=== PATIENT | female | born 1965 | race Caucasian/White ===

== ENCOUNTER 2023-04-10 23:27 | Inpatient (IN) | payer OTHER ==
[2023-04-11] MEDS ORDERED: ASPIRIN 81 MG PO STA (00:27)
[2023-04-11] MEDS ORDERED: NITROGLYCERIN-D5W PMX 50 MG in DEXTROSE/WATER 1 250ML.BAG IV ONE (00:28)
[2023-04-11 00:31] LABS: Basophils % (A) 0 %; Eosinophils # (A) 0.1 k/uL (0-0.7); Eosinophils % (A) 1 %; HCT 44.5 % (34.0-46.0); HGB 13.9 gm/dL (11.4-16.0); Hypochromasia Slight; Lymphocytes # (A) 2.6 k/uL (1.0-4.8); Lymphocytes % (A) 34 %; MCH 31.9 pg (25.0-35.0); MCHC 31.1 g/dL (31.0-37.0); MCV 102.5 fL (80.0-100.0); Macrocytosis Slight; Mean Platelet Volume 7.7; Monocytes # (A) 0.3 k/uL (0-1.0); Monocytes % (A) 4 %; Neutrophils # (A) 4.5 k/uL (1.3-7.7); Neutrophils % (A) 58 %; Platelet Count 343 k/uL (150-450); RBC 4.35 m/uL (3.80-5.40); RDW 13.5 % (11.5-15.5); WBC 7.7 k/uL (3.8-10.6)
[2023-04-11] MEDS ORDERED: MORPHINE SULFATE 2 MG/ML SYRINGE IVP PRN (00:44)
[2023-04-11 00:45] LABS: ALT 22 U/L (4-34); AST 39 U/L (14-36); African American GFR (CKD) >90 (>60 ml/min/1.73 sqM); Albumin 4.5 g/dL (3.5-5.0); Alkaline Phosphatase 68 U/L (38-126); Anion Gap 13 mmol/L; Blood Urea Nitrogen 14 mg/dL (7-17); Calcium 9.6 mg/dL (8.4-10.2); Carbon Dioxide 19 mmol/L (22-30); Chloride 103 mmol/L (98-107); Glucose 140 mg/dL (74-99); Magnesium 1.8 mg/dL (1.6-2.3); Non-African American GFR(CKD) >90 (>60 ml/min/1.73 sqM); Sodium 135 mmol/L (137-145); Total Bilirubin 0.9 mg/dL (0.2-1.3); Total Protein 8.1 g/dL (6.3-8.2)
[2023-04-11 00:48] LABS: INR 1.1 (<1.2); Partial Thromboplastin Time 21.8 sec (22.0-30.0); Prothrombin Time 11.5 sec (9.0-12.0)
[2023-04-11 01:27] LABS: Potassium 5.1 mmol/L (3.5-5.1)
--- NOTE | 2023-04-11 01:40 | XR ---
EXAM: XR Chest, 1 View CLINICAL HISTORY: ITS.REASON XR Reason: dyspnea TECHNIQUE: Frontal view of the chest. COMPARISON: No relevant prior studies available. IMPRESSION: Cardiomegaly. Slightly prominent interstitial markings.
--- NOTE | 2023-04-11 02:52 | ED ---
General Adult HPI - General Chief complaint: Recheck/Abnormal Lab/Rx Stated complaint: Hypertension Time Seen by Provider: 04/10/23 23:34 Source: patient Mode of arrival: EMS - History of Present Illness Initial comments: This patient is a 58-year-old woman who presents to have evaluation for anxiety and high blood pressure. The patient states that her blood pressure has been high for quite some time but she has not had medication for it. She states that today she also was feeling very anxious and she started becoming short of breath. Earlier in the day the patient was having some upper chest tightness and that prompted her family member to take her to the emergency department. When I interview the patient, she states there is currently no chest pain it has resolved. She states she is feeling very short of breath and very anxious. She states she feels very sweaty. No fever or chills. No cough. No change in urination or bowel movements. -: hour(s) Location: chest Radiation: non-radiation Quality: dull Consistency: now resolved Improves with: none Worsens with: none Associated Symptoms: shortness of breath Treatments Prior to Arrival: none - Related Data Previous Rx's Medication Instructions Recorded Aspirin 81 mg PO DAILY tab 04/17/23 Atorvastatin [Lipitor] 80 mg PO DAILY 30 Days #30 tab 04/17/23 Isosorbide Mononitrate ER [Imdur] 30 mg PO DAILY 30 Days #30 tab 04/17/23 Prasugrel [Effient] 10 mg PO DAILY 30 Days #30 tab 04/17/23 Allergies Allergy/AdvReac Type Severity Reaction Status Date / Time Sulfa (Sulfonamide Allergy Unknown Verified 04/11/23 07:04 Antibiotics) Review of Systems ROS Statement: Those systems with pertinent positive or pertinent negative responses have been documented in the HPI. ROS Other: All systems not noted in ROS Statement are negative. Constitutional: Denies: fever, chills, weakness Respiratory: Reports: as per HPI, dyspnea. Denies: cough, wheezes, hemoptysis Cardiovascular: Reports: as per HPI, chest pain, orthopnea. Denies: palpitations, edema, syncope Gastrointestinal: Denies: abdominal pain, nausea, vomiting, diarrhea Genitourinary: Denies: dysuria, hematuria Musculoskeletal: Denies: back pain Skin: Denies: rash Neurological: Denies: headache, weakness Psychiatric: Reports: anxiety Past Medical History Past Medical History: No Reported History History of Any Multi-Drug Resistant Organisms: None Reported Past Surgical History: No Surgical Hx Reported Past Psychological History: Anxiety, Depression Smoking Status: Current some day smoker Past Alcohol Use History: Abuse, Daily, Heavy Past Drug Use History: None Reported General Exam General appearance: alert, anxious, in distress Head exam: Present: atraumatic, normocephalic Eye exam: Present: normal appearance. Absent: scleral icterus, conjunctival injection ENT exam: Present: normal oropharynx Neck exam: Present: normal inspection Respiratory exam: Present: respiratory distress, wheezes, rales. Absent: rhonchi, stridor, accessory muscle use, decreased breath sounds, prolonged expiratory Cardiovascular Exam: Present: normal rhythm, tachycardia, systolic murmur. Absent: diastolic murmur, rubs, gallop GI/Abdominal exam: Present: soft. Absent: distended, tenderness, guarding, rebound, rigid, mass Extremities exam: Present: normal inspection, normal capillary refill. Absent: pedal edema, calf tenderness Back exam: Present: normal inspection. Absent: CVA tenderness (R), CVA tenderness (L) Neurological exam: Present: alert Skin exam: Present: warm, intact, diaphoretic, pallor. Absent: rash Course Vital Signs 04/11/23 04/11/23 04/11/23 00:00 00:03 00:35 Temperature 97.9 F Pulse Rate 133 H 135 H Respiratory 32 H 19 Rate Blood Pressure 163/129 146/128 O2 Sat by Pulse 95 100 Oximetry 04/11/23 04/11/23 04/11/23 00:40 00:45 00:50 Temperature Pulse Rate 140 H 147 H 135 H Respiratory Rate Blood Pressure 144/104 151/110 157/101 O2 Sat by Pulse 100 100 100 Oximetry 04/11/23 04/11/23 04/11/23 00:55 01:00 01:05 Temperature Pulse Rate 137 H 133 H 125 H Respiratory Rate Blood Pressure 146/109 151/106 134/105 O2 Sat by Pulse 100 100 100 Oximetry 04/11/23 04/11/23 04/11/23 01:15 01:30 01:45 Temperature Pulse Rate 135 H 129 H 131 H Respiratory Rate Blood Pressure 143/105 142/103 157/104 O2 Sat by Pulse 100 99 100 Oximetry 04/11/23 04/11/2304/11/23 01:56 02:00 02:15 Temperature Pulse Rate 126 H 120 H Respiratory 24 Rate Blood Pressure 148/111 143/113 O2 Sat by Pulse 95 97 Oximetry 04/11/23 04/11/23 04/11/23 02:30 02:45 03:00 Temperature Pulse Rate 120 H 103 H 103 H Respiratory 24 22 Rate Blood Pressure 125/100 118/90 119/86 O2 Sat by Pulse 98 99 98 Oximetry 04/11/23 04/11/23 04/11/23 03:15 03:30 04:00 Temperature Pulse Rate 107 H Respiratory 22 Rate Blood Pressure 129/94 119/86 131/89 O2 Sat by Pulse 98 98 Oximetry 04/11/23 04/11/23 04/11/23 04:30 04:45 05:00 Temperature Pulse Rate 104 H 90 96 Respiratory Rate Blood Pressure 121/88 122/92 111/84 O2 Sat by Pulse 98 98 99 Oximetry 04/11/23 04/11/23 04/11/23 05:30 06:00 06:30 Temperature Pulse Rate 98 85 82 Respiratory Rate Blood Pressure 116/94 115/89 113/90 O2 Sat by Pulse 100 100 100 Oximetry 04/11/23 06:55 Temperature 97.9 F Pulse Rate Respiratory Rate Blood Pressure O2 Sat by Pulse Oximetry EKG Findings - EKG Comments: EKG Findings:: Possible old anterior and inferior infarct - EKG Results: EKG: interpreted by ERMD, sinus rhythm, normal axis EKG shows: tachycardia (Rate 131 bpm) - Blocks, [place], Hypertrophy, ST Abn: QRS axis and voltage: low voltage (<0.5 MV total QRS and <1.0 MV in each precord ial lead) Medical Decision Making - Medical Decision Making Was pt. sent in by a medical professional or institution (, PA, MATERIALS PLANNING ANALYST, urgent care, hospital, or prison...) When possible be specific @ -[No] Did you speak to anyone other than the patient for history (EMS, parent, family, police, friend...)? What history was obtained from this source @ -[No] Did you review nursing and triage notes (agree or disagree)? Why? @ -[I reviewed and agree with nursing and triage notes] Were old charts reviewed (outside hosp., previous admission, EMS record, old EKG, old radiological studies, urgent care reports/EKG's, prison records)? Report findings @ -[No old charts were reviewed] Differential Diagnosis (chest pain, altered mental status, abdominal pain women, abdominal pain men, vaginal bleeding, weakness, fever, dyspnea, syncope, headache, dizziness, GI bleed, back pain, seizure, CVA, palpatations, mental health, musculoskeletal)? @ -[Differential Dyspnea: Coronary syndrome, arrhythmia, tamponade, asthma, COPD, pulmonary embolism, pneumonia, pneumothorax, pulmonary effusion, anaphylaxis, diabetic ketoacidosis, flailed chest, pulmonary contusion, diaphragmatic rupture, anemia, neuromuscular, this is not meant to be an all-inclusive list. EKG interpreted by me (3pts min.). @ -[As above] X-rays interpreted by me (1pt min.). @ -[As above CT interpreted by me (1pt min.). @ -[None done] U/S interpreted by me (1pt. min.). @ -[None done] What testing was considered but not performed or refused? (CT, X-rays, U/S, labs)? Why? @ -[None] What meds were considered but not given or refused? Why? @ -[None] Did you discuss the management of the patient with other professionals (professionals i.e. , PA, MATERIALS PLANNING ANALYST, lab, RT, psych nurse, social science teacher, crm marketing manager, teacher, records officer, assistant case manager)? Give summary @ -[Case is discussed with the admitting physician and patient be admitted to have cardiology consultation Was smoking cessation discussed for >3mins.? @ -[No] Was critical care preformed (if so, how long)? @ -[Yes 35 minutes Were there social determinants of health that impacted care today? How? (Homelessness, low income, unemployed, alcoholism, drug addiction, transportation, low edu. Level, literacy, decrease access to med. care, nursing home, rehab)? @ -[No] Was there de-escalation of care discussed even if they declined (Discuss DNR or withdrawal of care, Hospice)? DNR status @ -[No] What co-morbidities impacted this encounter? (DM, HTN, Smoking, COPD, CAD, Cancer, CVA, ARF, Chemo, Hep., AIDS, mental health diagnosis, sleep apnea, morbid obesity)? @ -[None] Was patient admitted / discharged? Hospital course, mention meds given and route, prescriptions, significant lab abnormalities, going to OR and other pertinent info. @ -[Admitted as above Undiagnosed new problem with uncertain prognosis? @ -[No] Drug Therapy requiring intensive monitoring for toxicity (Heparin, Nitro, Insulin, Cardizem)? @ -[Nitroglycerin Were any procedures done? @ -[No] Diagnosis/symptom? @ Acute hypertensive emergency Acute congestive heart failure Acute, or Chronic, or Acute on Chronic? @ -[Acute hypertensive emergency Acute congestive heart failure Uncomplicated (without systemic symptoms) or Complicated (systemic symptoms)? @ -[Complicated with dyspnea Side effects of treatment? @ -[No] Exacerbation, Progression, or Severe Exacerbation? @ -[No] Poses a threat to life or bodily function? How? (Chest pain, [place], [place], pneumonia, PE, COPD, DKA, ARF, appy, cholecystitis, CVA, Diverticulitis, Homicidal, Suicidal, threat to staff... and all critical care pts) @ -[Yes untreated hypertensive emergency can progress respiratory failure - Lab Data Result diagrams: 04/15/23 07:39 04/15/23 07:39 Lab Results 04/10/23 04/10/23 04/10/23 Range/Units 23:34 23:34 23:34 WBC 7.7 (3.8-10.6) k/uL RBC 4.35 (3.80-5.40) m/uL Hgb 13.9 (11.4-16.0) gm/dL Hct 44.5 (34.0-46.0) % MCV 102.5 H (80.0-100.0) fL MCH 31.9 (25.0-35.0) pg MCHC 31.1 (31.0-37.0) g/dL RDW 13.5 (11.5-15.5) % Plt Count 343 (150-450) k/uL MPV 7.7 Neutrophils % 58 % Lymphocytes % 34 % Monocytes % 4 % Eosinophils % 1 % Basophils % 0 % Neutrophils # 4.5 (1.3-7.7) k/uL Lymphocytes # 2.6 (1.0-4.8) k/uL Monocytes # 0.3 (0-1.0) k/uL Eosinophils # 0.1 (0-0.7) k/uL Basophils # 0.0 (0-0.2) k/uL Hypochromasia Slight Macrocytosis Slight PT 11.5 (9.0-12.0) sec INR 1.1 (<1.2) APTT 21.8 L (22.0-30.0) sec D-Dimer 0.97 H (<0.60) mg/L FEU Sodium 135 L (137-145) mmol/L Potassium 5.1 (3.5-5.1) mmol/L Chloride 103 (98-107) mmol/L Carbon Dioxide 19 L (22-30) mmol/L Anion Gap 13 mmol/L BUN 14 (7-17) mg/dL Creatinine 0.70 (0.52-1.04) mg/dL Est GFR (CKD-EPI)AfAm >90 (>60 ml/min/1.73 sqM) Est GFR (CKD-EPI)NonAf >90 (>60 ml/min/1.73 sqM) Glucose 140 H (74-99) mg/dL Calcium 9.6 (8.4-10.2) mg/dL Magnesium 1.8 (1.6-2.3) mg/dL Total Bilirubin 0.9 (0.2-1.3) mg/dL AST 39 H (14-36) U/L ALT 22 (4-34) U/L Alkaline Phosphatase 68 (38-126) U/L Troponin I (0.000-0.034) ng/mL NT-Pro-B Natriuret Pep pg/mL Total Protein 8.1 (6.3-8.2) g/dL Albumin 4.5 (3.5-5.0) g/dL TSH 0.997 (0.465-4.680) mIU/L 04/10/23 04/10/23 Range/Units 23:34 23:34 WBC (3.8-10.6) k/uL RBC (3.80-5.40) m/uL Hgb (11.4-16.0) gm/dL Hct (34.0-46.0) % MCV (80.0-100.0) fL MCH (25.0-35.0) pg MCHC (31.0-37.0) g/dL RDW (11.5-15.5) % Plt Count (150-450) k/uL MPV Neutrophils % % Lymphocytes % % Monocytes % % Eosinophils % % Basophils % % Neutrophils # (1.3-7.7) k/uL Lymphocytes # (1.0-4.8) k/uL Monocytes # (0-1.0) k/uL Eosinophils # (0-0.7) k/uL Basophils # (0-0.2) k/uL Hypochromasia Macrocytosis PT (9.0-12.0) sec INR (<1.2) APTT (22.0-30.0) sec D-Dimer (<0.60) mg/L FEU Sodium (137-145) mmol/L Potassium (3.5-5.1) mmol/L Chloride (98-107) mmol/L Carbon Dioxide (22-30) mmol/L Anion Gap mmol/L BUN (7-17) mg/dL Creatinine (0.52-1.04) mg/dL Est GFR (CKD-EPI)AfAm (>60 ml/min/1.73 sqM) Est GFR (CKD-EPI)NonAf (>60 ml/min/1.73 sqM) Glucose (74-99) mg/dL Calcium (8.4-10.2) mg/dL Magnesium (1.6-2.3) mg/dL Total Bilirubin (0.2-1.3) mg/dL AST (14-36) U/L ALT (4-34) U/L Alkaline Phosphatase (38-126) U/L Troponin I 0.033 (0.000-0.034) ng/mL NT-Pro-B Natriuret Pep [id number] pg/mL Total Protein (6.3-8.2) g/dL Albumin (3.5-5.0) g/dL TSH (0.465-4.680) mIU/L Critical Care Time Critical Care Time: Yes (35 minutes) Disposition Clinical Impression: Hypertensive emergency, CHF (congestive heart failure) Disposition: ADMITTED IP TO THIS [facility] Condition: Serious Is patient prescribed a controlled substance at d/c from ED?: No
[2023-04-11] MEDS: FUROSEMIDE 10 MG/ML 4 ML VIAL IV SCH ×2 (03:45→14:31)
[2023-04-11] MEDS ORDERED: NITROGLYCERIN OINT 1 INCH/GM PACKET TOPICAL STA (05:10)
--- NOTE | 2023-04-11 07:56 | CT ---
CT CHEST FOR PULMONARY EMBOLISM. EXAMINATION TYPE: CT chest angio for PE DATE OF EXAM: 04/11/2023 INDICATION: Dyspnea CT DLP: 163.1 mGycm, Automated exposure control for dose reduction was used. CONTRAST: Patient injected with 100 mL of Isovue 300. COMPARISON: None TECHNIQUE: CT of the chest is performed on a spiral scan at 2 mm thick sections. Study is performed with intravenous contrast timed for evaluation for pulmonary embolism. This will limit additional po rtions of the evaluation. 3-D MIP images reconstructed by the technologist are reviewed on the compu ter in the coronal and sagittal planes. FINDINGS: No persistent filling defects are evident to suggest an acute pulmonary embolism. No mediastinal or hilar adenopathy enlarged by CT criteria is evident. The ascending aorta diameter at the level of the main pulmonary artery is 3.0 cm. The main pulmonary artery diameter at the bifur cation is 3.0 cm. Emphysematous changes are present in the bilateral lung lopes. Limited CT section through the upper abdomen. There appears to be marked left hydronephrosis. IMPRESSIONS: 1. No acute pulmonary embolism. 2. Advanced emphysematous changes. 3. Marked left hydronephrosis
[2023-04-11] MEDS ORDERED: HEPARIN SODIUM 1,000 UN/ML (10ML VL) IV ONE (08:56)
[2023-04-11] MEDS: METOPROLOL SUCCINATE (ER) 25 MG TAB.ER.24H PO SCH (10:31)
[2023-04-11] MEDS: ATORVASTATIN 40 MG TAB PO SCH (10:31)
[2023-04-11] MEDS: HEPARIN SOD,PORK IN 0.45% NACL 25,000 UNIT in 0.45% NACL 1 250ML.BAG IV SCH (10:32)
[2023-04-11 11:21] LABS: Basophils # (A) 0.1 k/uL (0-0.2); Basophils % (A) 1 %; Eosinophils % (A) 1 %; HGB 14.1 gm/dL (11.4-16.0); Lymphocytes # (A) 2.1 k/uL (1.0-4.8); Lymphocytes % (A) 26 %; MCH 32.2 pg (25.0-35.0); MCV 100.8 fL (80.0-100.0); Macrocytosis Slight; Mean Platelet Volume 7.8; Monocytes # (A) 0.5 k/uL (0-1.0); Monocytes % (A) 6 %; Neutrophils # (A) 5.1 k/uL (1.3-7.7); Neutrophils % (A) 65 %; Platelet Count 369 k/uL (150-450); RBC 4.37 m/uL (3.80-5.40); RDW 13.7 % (11.5-15.5); WBC 7.9 k/uL (3.8-10.6)
[2023-04-11 11:46] LABS: INR 1.1 (<1.2); Prothrombin Time 11.6 sec (9.0-12.0)
--- NOTE | 2023-04-11 12:22 | P.CRDCN ---
History of Present Illness Consult date: 04/11/23 Consult reason: congestive heart failure (Hypertensive emergency) History of present illness: History of present illness: This is a 58 year old female patient with no previous cardiac history. She has a past mental history for hypertension. Patient presented to the hospital regarding shortness of breath. And that her blood pressure was really high at home. She complains of some upper chest discomfort and difficulty with breathing. She states sometimes she has some tightness in her chest when she was sitting at home and then at work yesterday. She also developed dizziness and thought she was going to pass out and became sweaty. She denies having any previous cardiac history and no history of diabetes. Regarding her blood pressure, patient states that even with her blood pressure medications, her blood pressure readings are always high. Note on the computer that patient last took her blood pressure medications on 03/28. Patient also is an active smoker trying to quit. Patient was briefly on nitroglycerin drip in the emergency center which was discontinued before she arrived to the cardiac stepdown unit. EKG sinus tachycardia at 131 bpm Chest x-ray: Slightly prominent interstitial markings CBC unremarkable. D-dimer 0.97. Sodium 135, potassium 5.1, BUN 14 and creatinine 0.7. Troponin 0.033, 0.116, 0.136. CTA of the chest revealed no acute pulmonary embolism. Advanced emphysematous changes. Marked left hydronephrosis. Home cardiac medications: Review Of Systems: At the time of my evaluation: Constitutional: No fever, no chills. No weakness, fatigue or lethargy. EENT: No headache. No dizziness. Lungs: Reports shortness of breath, cough, no sputum production. No wheezing. Cardiovascular: Reported chest pain, no lower extremity edema. No palpitations. No paroxysmal nocturnal dyspnea. No orthopnea. No lightheadedness or dizziness. No syncopal episodes. Abdominal: No abdominal pain. No nausea, vomiting. No diarrhea. No constipation. No bloody or tarry stools. Genitourinary: No dysuria.. No urinary retention. Musculoskeletal: No myalgias. No muscle weakness, no frequent falls. No back pain. No neck pain. Integumentary: No wounds. No rash. No unusual bruising. Neurologic: No aphasia. No facial droop. No change in mentation. No head injury. No headache. Physical examination: Gen: This is a cachectic appearing 58-year-old female. She is resting but appears to be in no acute distress. VS: reviewed HEENT: Head is atraumatic, normocephalic. Pupils equal, round. Sclerae is anicteric. NECK: Supple. No JVD. . LUNGS: Clear to auscultation. No wheezes or rhonchi. No intercostal retractions. HEART: Regular rate and rhythm. No murmur. ABDOMEN: Soft No tenderness. EXTREMITIES: No pedal edema. No calf tenderness. NEUROLOGICAL: Patient is awake, alert and oriented x3. Assessment: Elevated troponin possibly secondary to tachycardia or hypertension, rule out non-ST elevated [place] Uncontrolled hypertension Sinus tachycardia Marked left hydronephrosis on CTA Tobacco use and dependence Plan: Start patient on heparin drip Start patient on aspirin 81 mg daily, Lipitor 40 mg daily, Toprol-XL 25 mg daily Continue patient on Lasix 40 mg every 12 hours. Monitor I&O, daily weights, I's and renal function. Obtain 2-D echocardiogram and Doppler study to assess cardiac structure and function Further recommendations to follow based upon clinical course Thank you kindly for this consultation. Nurse practitioner note has been reviewed, I agree with documented findings and plan of care. Patient was seen and examined. Past Medical History Past Medical History: COPD, Hypertension Additional Past Medical History / Comment(s): anxiety History of Any Multi-Drug Resistant Organisms: None Reported Past Surgical History: No Surgical Hx Reported Past Anesthesia/Blood Transfusion Reactions: No Reported Reaction Past Psychological History: Anxiety, Depression Smoking Status: Current some day smoker Past Alcohol Use History: Abuse, Daily, Heavy Additional Past Alcohol Use History / Comment(s): used to drink daily quit doing that a few months ago Past Drug Use History: None Reported Medications and Allergies Home Medications Medication Instructions Recorded Confirmed Type Losartan-Hctz 50-12.5 mg [Hyzaar 1 tab PO DAILY 04/11/23 04/11/23 History 50-12.5] amLODIPine [Norvasc] 5 mg PO DAILY 04/11/23 04/11/23 History Allergies Allergy/AdvReac Type Severity Reaction Status Date / Time Sulfa (Sulfonamide Allergy Unknown Verified 04/11/23 07:04 Antibiotics) Physical Exam Vitals: Vital Signs Temp Pulse Pulse Resp BP BP Pulse Ox 04/11/23 11:59 18 04/11/23 11:56 97.8 F 80 18 109/76 97 04/11/23 08:55 97.4 F L 95 18 116/89 95 04/11/23 06:55 97.9 F 04/11/23 06:30 82 113/90 100 04/11/23 06:00 85 115/89 100 04/11/23 05:30 98 116/94 100 04/11/23 05:00 96 111/84 99 04/11/23 04:45 90 122/92 98 04/11/23 04:30 104 H 121/88 98 04/11/23 04:00 22 131/89 98 04/11/23 03:30 119/86 04/11/23 03:15 107 H 129/94 98 04/11/23 03:00 103 H 22 119/86 98 04/11/23 02:45 103 H 118/90 99 04/11/23 02:30 120 H 24 125/100 98 04/11/23 02:15 120 H 143/113 97 04/11/23 02:00 126 H 148/111 95 04/11/23 01:56 24 04/11/23 01:45 131 H 157/104 100 04/11/23 01:30 129 H 142/103 99 04/11/23 01:15 135 H 143/105 100 04/11/23 01:05 125 H 134/105 100 04/11/23 01:00 133 H 151/106 100 04/11/23 00:55 137 H 146/109 100 04/11/23 00:50 135 H 157/101 100 04/11/23 00:45 147 H 151/110 100 04/11/23 00:40 140 H 144/104 100 04/11/23 00:35 135 H 146/128 100 04/11/23 00:03 97.9 F 133 H 19 163/129 95 04/11/23 00:00 32 H Intake and Output 04/10/23 04/11/23 04/11/23 22:59 06:59 14:59 Intake Total 20.375 Balance 20.375 Intake: Intake, IV Titration 20.375 Amount Nitroglycerin-D5w Pmx 50 20.375 mg In Dextrose/Water 1 250ml.bag @ 10 MCG/MIN 3 mls/hr IV .Q24H ONE Rx#: [id number] Other: Weight 40.823 kg 40.823 kg Results 04/11/23 10:12 04/10/23 23:34 Cardiac Enzymes 04/10/23 04/10/23 04/11/23 Range/Units 23:34 23:34 03:05 AST 39 H (14-36) U/L Troponin I 0.033 0.116 H* (0.000-0.034) ng/mL 04/11/23 Range/Units 05:49 AST (14-36) U/L Troponin I 0.136 H* (0.000-0.034) ng/mL Coagulation 04/10/23 Range/Units 23:34 PT 11.5 (9.0-12.0) sec APTT 21.8 L (22.0-30.0) sec CBC 23 04/11/23 Range/Units 23:34 10:12 WBC 7.7 7.9 (3.8-10.6) k/uL RBC 4.35 4.37 (3.80-5.40) m/uL Hgb 13.9 14.1 (11.4-16.0) gm/dL Hct 44.5 44.0 (34.0-46.0) % Plt Count 343 369 (150-450) k/uL Comprehensive Metabolic Panel 04/10/23 Range/Units 23:34 Sodium 135 L (137-145) mmol/L Potassium 5.1 (3.5-5.1) mmol/L Chloride 103 (98-107) mmol/L Carbon Dioxide 19 L (22-30) mmol/L BUN 14 (7-17) mg/dL Creatinine 0.70 (0.52-1.04) mg/dL Glucose 140 H (74-99) mg/dL Calcium 9.6 (8.4-10.2) mg/dL AST 39 H (14-36) U/L ALT 22 (4-34) U/L Alkaline Phosphatase 68 (38-126) U/L Total Protein 8.1 (6.3-8.2) g/dL Albumin 4.5 (3.5-5.0) g/dL Current Medications Generic Name Dose Route Start Last Admin Trade Name Freq PRN Reason Stop Dose Admin Aspirin 325 mg 04/12/23 09:00 Aspirin 325 Mg Tab PO DAILY CHOCO Atorvastatin Calcium 40 mg 04/11/23 09:00 04/11/23 10:31 Atorvastatin 40 Mg Tab PO 40 mg DAILY CHOCO Administration Furosemide 40 mg 04/11/23 02:45 04/11/23 03:45 Furosemide 10 Mg/Ml 4 Ml Vial IV 40 mg Q12H [facility]O Administration Heparin Sodium (Porcine) 0 unit 04/11/23 08:56 Heparin Sodium 1,000 Un/Ml (10ml Vl) IV PER PROTOCOL PRN Low PTT Protocol Heparin Sodium/Sodium Chloride 250 mls @ 4.899 mls/hr 04/11/23 09:00 04/11/23 10:32 25,000 unit/ Sodium Chloride IV 12 units/kg/hr .Q24H [facility]O 4.899 mls/hr Administration Protocol 12 UNITS/KG/HR Metoprolol Succinate 25 mg 04/11/23 09:00 04/11/23 10:31 Metoprolol Succinate (Er) 25 Mg Tab.Er.24h PO 25 mg DAILY [facility]O Administration Morphine Sulfate 2 mg 04/11/23 00:44 04/11/23 00:44 Morphine Sulfate 2 Mg/Ml Syringe IVP 2 mg ONCE PRN Administration Pain/Discomfort Sodium Chloride 10 ml 04/11/23 09:00 04/11/23 10:32 Sodium Chloride 0.9% Flush 10 Ml Syringe IV 10 ml BID CHOCO Administration Intake and Output 04/10/23 04/11/23 04/11/23 22:59 06:59 14:59 Intake Total 20.375 Balance 20.375 Intake: Intake, IV Titration 20.375 Amount Nitroglycerin-D5w Pmx 50 20.375 mg In Dextrose/Water 1 250ml.bag @ 10 MCG/MIN 3 mls/hr IV .Q24H ONE Rx#: [id number] Other: Weight 40.823 kg 40.823 kg Patient Weight 04/12/23 06:59 Weight 40.823 kg 04/11/23 10:12 04/10/23 23:34
[2023-04-11 12:28] LABS: Partial Thromboplastin Time 21.8 sec (22.0-30.0)
--- NOTE | 2023-04-11 14:08 | P.HPIM ---
History of Present Illness H&P Date: 04/11/23 History of present illness; patient is a 58-year-old old lady with past medical history significant for hypertension noncompliant with medications who presented to the ER because of high blood pressure and feeling anxious. Patient stated that she has been having high blood pressure for a a while but has not been taking any medications for it. Patient stated that today she became more anxious and was complaining of shortness of breath. She was also noticing chest pressure central in location, nonradiating, no aggravating or relieving factors associated with this chest pressure. Because of anxiety and elevated blood pressure, patient came to the ER. Recent blood work in the ER showed WBC 7.7, hemoglobin 13.9, sodium 139, potassium 5.1, BUN 14, creatinine 0.7, proBNP was elevated at 19,300 Chest CTA done was negative for PE, showed advanced emphysematous changes EKG done did not show any acute segment changes, no T-wave inversions Patient was admitted to medicine service REVIEW OF SYSTEMS: CONSTITUTIONAL: No fever, no malaise, no fatigue. HEENT: No recent visual problems or hearing problems. Denied any sore throat. CARDIOVASCULAR: No chest pain, orthopnea, PND, no palpitations, no syncope. PULMONARY: As mentioned in HPI GASTROINTESTINAL: No diarrhea, no nausea, no vomiting, no abdominal pain. NEUROLOGICAL: No headaches, no weakness, no numbness. HEMATOLOGICAL: Denies any bleeding or petechiae. GENITOURINARY: Denies any burning micturition, frequency, or urgency. MUSCULOSKELETAL/RHEUMATOLOGICAL: Denies any joint pain, swelling, or any muscle pain. ENDOCRINE: Denies any polyuria or polydipsia. The rest of the 14-point review of systems is negative. PHYSICAL EXAMINATION: GENERAL: The patient is alert and oriented x3, not in any acute distress. Well developed, well nourished. HEENT: Pupils are round and equally reacting to light. EOMI. No scleral icterus. No conjunctival pallor. Normocephalic, atraumatic. No pharyngeal erythema. No thyromegaly. CARDIOVASCULAR: S1 and S2 present. No murmurs, rubs, or gallops. PULMONARY: Chest is clear to auscultation, no wheezing or crackles. ABDOMEN: Soft, nontender, nondistended, normoactive bowel sounds. No palpable organomegaly. MUSCULOSKELETAL: No joint swelling or deformity. EXTREMITIES: No cyanosis, clubbing, or pedal edema. NEUROLOGICAL: Gross neurological examination did not reveal any focal deficits. SKIN: No rashes. Assessment and plan Hypertensive emergency Non-ST elevation MS Acute CHF Monitor vital signs Monitor CBC monitor CMP Trend troponins. Strict I's and O's Daily weights Continue IV Lasix 40 g every 12 Follow-up on 2-D echo Continue pharmacy dose heparin Consult cardiology DVT prophylaxis: Past Medical History Past Medical History: COPD, Hypertension Additional Past Medical History / Comment(s): anxiety History of Any Multi-Drug Resistant Organisms: None Reported Past Surgical History: No Surgical Hx Reported Past Anesthesia/Blood Transfusion Reactions: No Reported Reaction Past Psychological History: Anxiety, Depression Smoking Status: Current some day smoker Past Alcohol Use History: Abuse, Daily, Heavy Additional Past Alcohol Use History / Comment(s): used to drink daily quit doing that a few months ago Past Drug Use History: None Reported Medications and Allergies Home Medications Medication Instructions Recorded Confirmed Type Losartan-Hctz 50-12.5 mg [Hyzaar 1 tab PO DAILY 04/11/23 04/11/23 History 50-12.5] amLODIPine [Norvasc] 5 mg PO DAILY 04/11/23 04/11/23 History Allergies Allergy/AdvReac Type Severity Reaction Status Date / Time Sulfa (Sulfonamide Allergy Unknown Verified 04/11/23 07:04 Antibiotics) Physical Exam Vitals: Vital Signs Temp Pulse Pulse Resp BP BP Pulse Ox 04/11/23 08:55 97.4 F L 95 18 116/89 95 04/11/23 06:55 97.9 F 04/11/23 06:30 82 113/90 100 04/11/23 06:00 85 115/89 100 04/11/23 05:30 98 116/94 100 04/11/23 05:00 96 111/84 99 04/11/23 04:45 90 122/92 98 04/11/23 04:30 104 H 121/88 98 04/11/23 04:00 22 131/89 98 04/11/23 03:30 119/86 04/11/23 03:15 107 H 129/94 98 04/11/23 03:00 103 H 22 119/86 98 04/11/23 02:45 103 H 118/90 99 04/11/23 02:30 120 H 24 125/100 98 04/11/23 02:15 120 H 143/113 97 04/11/23 02:00 126 H 148/111 95 04/11/23 01:56 24 04/11/23 01:45 131 H 157/104 100 04/11/23 01:30 129 H 142/103 99 04/11/23 01:15 135 H 143/105 100 04/11/23 01:05 125 H 134/105 100 04/11/23 01:00 133 H 151/106 100 04/11/23 00:55 137 H 146/109 100 04/11/23 00:50 135 H 157/101 100 04/11/23 00:45 147 H 151/110 100 04/11/23 00:40 140 H 144/104 100 04/11/23 00:35 135 H 146/128 100 04/11/23 00:03 97.9 F 133 H 19 163/129 95 04/11/23 00:00 32 H Intake and Output 04/10/23 04/11/23 04/11/23 22:59 06:59 14:59 Intake Total 20.375 Balance 20.375 Intake: Intake, IV Titration 20.375 Amount Nitroglycerin-D5w Pmx 50 20.375 mg In Dextrose/Water 1 250ml.bag @ 10 MCG/MIN 3 mls/hr IV .Q24H [facility] Rx#: [id number] Other: Weight 40.823 kg 40.823 kg Results CBC & Chem 7: 04/11/23 10:12 04/10/23 23:34 Labs: Abnormal Lab Results - Last 24 Hours (Table) 04/10/23 04/10/23 04/10/23 Range/Units 23:34 23:34 23:34 MCV 102.5 H (80.0-100.0) fL APTT 21.8 L (22.0-30.0) sec D-Dimer 0.97 H (<0.60) mg/L FEU Sodium 135 L (137-145) mmol/L Carbon Dioxide 19 L (22-30) mmol/L Glucose 140 H (74-99) mg/dL AST 39 H (14-36) U/L Troponin I (0.000-0.034) ng/mL 04/11/23 04/11/23 Range/Units 03:05 05:49 MCV (80.0-100.0) fL APTT (22.0-30.0) sec D-Dimer (<0.60) mg/L FEU Sodium (137-145) mmol/L Carbon Dioxide (22-30) mmol/L Glucose (74-99) mg/dL AST (14-36) U/L Troponin I 0.116 H* 0.136 H* (0.000-0.034) ng/mL Thrombosis Risk Factor Assmnt - Choose All That Apply Any of the Below Risk Factors Present?: Yes Each Factor Represents 1 point: Age 41-60 years Other Risk Factors: No Thrombosis Risk Factor Assessment Total Risk Factor Score: 1 Thrombosis Risk Factor Assessment Level: Low Risk
--- NOTE | 2023-04-11 15:58 | US ---
EXAMINATION TYPE: US kidneys/renal and bladder DATE OF EXAM: 04/11/2023 COMPARISON: Chest CT CLINICAL INDICATION: Female, 58 years old with history of Blaise; BLAISE EXAM MEASUREMENTS: Right Kidney: 10.4 x 4.2 x 4.5 cm Left Kidney: 10.3 x 5.4 x 4.1 cm Right Kidney: Dilated renal pelvis Left Kidney: Severe hydro, normal kidney not visualized Bladder: Possible thickened wall Bilateral Jets seen: No IMPRESSION: 1. Severe left hydronephrosis. 2 thickening of the urinary bladder wall. Consider neurogenic bladder.
[2023-04-11] MEDS: HEPARIN SODIUM 1,000 UN/ML (10ML VL) IV PRN (16:56)
[2023-04-11 17:04] LABS: Chol/HDL Ratio 3.23 Ratio; LDL Cholesterol,Calculated 128.1 mg/dL (0.0-131.0)
--- NOTE | 2023-04-11 19:21 | CA ---
Transthoracic Echo Report Name: Jessie Tobias Age: 58 Gender: F : 1965 Exam Date: 04/11/2023 13:49 Exam Location: [facility] Ht (in): 59 Wt (lb): 90 Ordering Physician: Jerrod Ruiz MD Attending/Referring Phys: [employer] Feliciano Cassidy Procedure CPT: Indications: Heart failure Cardiac Hx: Technical Quality: Fair Contrast 1: Total Dose (mL): Contrast 2: Total Dose (mL): MEASUREMENTS (Male / Female) Normal Values 2D ECHO LV Diastolic Diameter PLAX 5.3 cm 4.2 - 5.9 / 3.9 - 5.3 cm LV Systolic Diameter PLAX 4.5 cm IVS Diastolic Thickness 0.5 cm 0.6 - 1.0 / 0.6 - 0.9 cm LVPW Diastolic Thickness 0.8 cm 0.6 - 1.0 / 0.6 - 0.9 cm LV Relative Wall Thickness 0.3 RV Internal Dim ED PLAX 1.6 cm LVOT Diameter 1.6 cm Aortic Root Diameter 2.5 cm LA Systolic Diameter LX 2.7 cm 3.0 - 4.0 / 2.7 - 3.8 cm LV Diastolic Volume MOD BP 97.3 cm??? 67 - 155 / 56 - 104 cm??? LV Systolic Volume MOD BP 69.6 cm??? 22 - 58 / 19 - 49 cm??? LV Ejection Fraction MOD BP 28.5 % >= 55 % LV Diastolic Volume MOD 4C 77.0 cm??? LV Systolic Volume MOD 4C 45.4 cm??? LV Ejection Fraction MOD 4C 41.1 % LV Diastolic Length 4C 7.3 cm LV Systolic Length 4C 6.8 cm LV Diastolic Volume MOD 2C 117.5 cm??? LV Systolic Volume MOD 2C 102.2 cm??? LV Ejection Fraction MOD 2C 13.0 % LV Diastolic Length 2C 7.7 cm LV Systolic Length 2C 7.3 cm LA Volume 57.2 cm??? 18 - 58 / 22 - 52 cm??? DOPPLER AV Peak Velocity 79.0 cm/s AV Peak Gradient 2.5 mmHg LVOT Peak Velocity 70.5 cm/s LVOT Peak Gradient 2.0 mmHg AV Area Cont Eq pk 1.8 cm??? MV Peak Velocity 99.0 cm/s MV Peak Gradient 3.9 mmHg MV Mean Velocity 54.6 cm/s MV Mean Gradient 1.4 mmHg MV Velocity Time Integral 18.9 cm MR Peak Velocity 413.1 cm/s MR Peak Gradient 68.3 mmHg Mitral E Point Velocity 100.9 cm/s Mitral A Point Velocity 40.0 cm/s Mitral E to A Ratio 2.5 MV Deceleration Time 144.7 ms TR Peak Velocity 315.1 cm/s TR Peak Gradient 39.7 mmHg Right Ventricular Systolic Press 44.7 mmHg PV Peak Velocity 53.0 cm/s PV Peak Gradient 1.1 mmHg FINDINGS Left Ventricle Mild left ventricular dilatation. Left ventricular ejection fraction is estimated at 20-25 %. Right Ventricle Normal right ventricular size. RVSP=47mmhg. Right Atrium Mild right atrial dilatation. Left Atrium Mild left atrial dilatation. LA Volume index= 44ml/m2 Mitral Valve Structurally normal mitral valve. Moderate MR. Aortic Valve Grossly Normal.no aortic valve stenosis or regurgitation. Tricuspid Valve Structurally normal tricuspid valve. Moderate TR. Pulmonic Valve Pulmonic valve not well visualized. Trace PI. Pericardium Normal pericardium. Aorta Normal size aortic root and proximal ascending aorta. CONCLUSIONS Dilated LV with severely reduced ejection fraction of less than 35% Previewed by: Dr. Aristeo Cisneros MD (Electronically Signed) Final Date: 11 April 2023 19:20
[2023-04-12] MEDS: HEPARIN SODIUM 1,000 UN/ML (10ML VL) IV PRN (00:51)
[2023-04-12] MEDS: FUROSEMIDE 10 MG/ML 4 ML VIAL IV SCH (03:23)
[2023-04-12] MEDS: ATORVASTATIN 40 MG TAB PO SCH (08:16)
[2023-04-12] MEDS: METOPROLOL SUCCINATE (ER) 25 MG TAB.ER.24H PO SCH (08:16)
[2023-04-12] MEDS: ASPIRIN 81 MG PO SCH (08:16)
[2023-04-12] MEDS ORDERED: ASPIRIN 325 MG TAB PO SCH (09:00)
[2023-04-12 09:29] LABS: INR 1.2 (<1.2)
--- NOTE | 2023-04-12 13:01 | P.PN ---
Subjective Progress Note Date: 04/12/23 patient is a 58-year-old old lady with past medical history significant for hypertension noncompliant with medications who presented to the ER because of high blood pressure and feeling anxious. Patient stated that she has been having high blood pressure for a a while but has not been taking any medications for it. Patient stated that today she became more anxious and was complaining of shortness of breath. She was also noticing chest pressure central in location, nonradiating, no aggravating or relieving factors associated with this chest pressure. Because of anxiety and elevated blood pressure, patient came to the ER. Recent blood work in the ER showed WBC 7.7, hemoglobin 13.9, sodium 139, p otassium 5.1, BUN 14, creatinine 0.7, proBNP was elevated at 19,300 Chest CTA done was negative for PE, showed advanced emphysematous changes EKG done did not show any acute segment changes, no T-wave inversions Patient was admitted to medicine service 04/12. Patient seen and examined. No further episodes of chest pain. Patient is very anxious, denies any suicidal thoughts at this time. Sister at the bedside, agrees with the patient is very anxious. REVIEW OF SYSTEMS: CONSTITUTIONAL: No fever, no malaise,. CARDIOVASCULAR: No chest pain, no palpitations, no syncope. PULMONARY: No shortness of breath, no cough, GASTROINTESTINAL: No diarrhea, no nausea, no vomiting, no abdominal pain. NEUROLOGICAL: No headaches, no weakness, PHYSICAL EXAMINATION: GENERAL: The patient is alert and oriented x3, not in any acute distress. Well developed, well nourished. HEENT: Pupils are round and equally reacting to light. EOMI. No scleral icterus. No conjunctival pallor. Normocephalic, atraumatic. No pharyngeal erythema. No thyromegaly. CARDIOVASCULAR: S1 and S2 present. No murmurs, rubs, or gallops. PULMONARY: Chest is clear to auscultation, no wheezing or crackles. ABDOMEN: Soft, nontender, nondistended, normoactive bowel sounds. No palpable organomegaly. MUSCULOSKELETAL: No joint swelling or deformity. EXTREMITIES: No cyanosis, clubbing, or pedal edema. NEUROLOGICAL: Gross neurological examination did not reveal any focal deficits. SKIN: No rashes. Assessment and plan Hypertensive emergency Non-ST elevation [place] Acute systolic CHF Severe left-sided hydronephrosis Anxiety Depression Monitor vital signs Monitor CBC monitor CMP Trend troponins. Strict I's and O's Daily weights 2-D echo done shows dilated left ventricle with severely reduced LVEF of less than 35% Continue IV Lasix 40 g every 12 Continue pharmacy dose heparin Follow-up on cardiology recommendations Psychiatry consulted for anxiety urology consulted for left-sided hydronephrosis Objective - Vital Signs Vital signs: Vital Signs Temp 97.8 F 04/12/23 08:13 Pulse 64 04/12/23 08:13 Resp 18 04/12/23 08:13 BP 101/69 04/12/23 08:13 Pulse Ox 96 04/12/23 08:33 FiO2 Intake & Output 04/11/23 04/12/23 04/12/23 18:59 06:59 18:59 Intake Total 31.435 688.168 Balance 31.435 688.168 Weight 40.823 kg 35.6 kg Intake: Intake, IV Titration 31.435 48.168 Amount Heparin Sod,Pork in 0.45% 31.435 48.168 NaCl 25,000 unit In 0.45 % NaCl 1 250ml.bag @ 12 UNITS/KG/HR 4.899 mls/hr IV .Q24H [facility] Rx#: [id number] Oral 640 Other: # Voids 1 1 1 - Labs CBC & Chem 7: 04/11/23 10:12 04/10/23 23:34 Labs: Abnormal Lab Results - Last 24 Hours (Table) 04/11/23 04/11/23 04/11/23 Range/Units 10:12 10:12 10:12 MCV 100.8 H (80.0-100.0) fL INR (<1.2) APTT 21.8 L (22.0-30.0) sec Cholesterol 219.00 H (0.00-200.00) mg/dL HDL Cholesterol 67.70 H (40.00-60.00) mg/dL 04/11/23 04/12/23 04/12/23 Range/Units 22:42 08:39 08:40 MCV (80.0-100.0) fL INR 1.2 H (<1.2) APTT 35.8 H 31.2 H (22.0-30.0) sec Cholesterol (0.00-200.00) mg/dL HDL Cholesterol (40.00-60.00) mg/dL
--- NOTE | 2023-04-12 13:30 | P.CN ---
Psychiatric Consult - . Consult date: 04/12/23 Consult:: 04/12/23 13:29 IDENTIFYING DATA: This patient is a , employed, 58-year-old female with no significant psychiatric history who presented to the hospital on 04/11/2023 for high blood pressure, shortness of breath, and anxiety HISTORY OF PRESENT ILLNESS: The patient presented to the hospital on 04/11/2023 for high blood pressure, anxiety, and shortness of breath. The patient also was experiencing chest pressure at a central location. It was determined that the patient was experiencing acute congestive heart failure and hypertensive emergency. She was subsequently admitted to the medical floor for evaluation and stabilization. Psychiatry has been consulted for suicidal ideation with a reported plan as well as a history of alcohol abuse. The patient was evaluated by psychiatry in her room. Currently, the patient is vehemently denying any significant symptoms regarding her mental health. She does report elevated anxiety and depression in regards to her current medical issues. She reports that she is depressed about her congestive heart failure and is stressed in regards to the life adjustments that she'll have to make in regards to this. However, the patient is vehemently denying any suicidal or homicidal ideation, intention, and/or plan. She reports no prior attempts at suicide. The patient states that "whoever said that I was suicidal was talking sh*t." The patient is not reporting any significant signs or symptoms of bipolar disorder. She denies any previous excessive energy, racing thoughts, grandiosity, or increased goal-directed activity. She reports no significant history or current symptoms of psychosis. She denies any auditory or visual or other delusions. She is currently alert and oriented in all spheres. She denies any access to firearms or weapons at home. In regard to her substance use, the patient does admit that she has been smoking approximately 1-2 packs per day however states that she plans to quit smoking and has not smoked a cigarette over the past 3 days. She vehemently denies any marijuana use, illicit drug use, or significant alcohol use. She is uncertain as to whether report came about her heavy alcohol abuse because she states that she has not been abusing any alcohol or drinking over the past year. PAST PSYCHIATRIC HISTORY: Patient reports no significant psychiatric history. Patient denies being on any psychiatric medications. Patient denies any previous psychiatric hospitalizations. Patient denies any psychiatric outpatient follow- up. Patient denies any history of suicide attempts in the past. PAST MEDICAL HISTORY: Past Medical History: COPD, Hypertension Additional Past Medical History / Comment(s): anxiety History of Any Multi-Drug Resistant Organisms: None Reported Past Surgical History: No Surgical Hx Reported Past Anesthesia/Blood Transfusion Reactions: No Reported Reaction Past Psychological History: Anxiety, Depression Smoking Status: Current some day smoker Past Alcohol Use History: Abuse, Daily, Heavy Additional Past Alcohol Use History / Comment(s): used to drink daily quit doing that a few months ago Past Drug Use History: None Reported ALLERGIES: Sulfa CHEMICAL DEPENDENCY HISTORY: as per HPI. FAMILY PSYCHIATRIC/SUBSTANCE USE HISTORY: The patient reports no significant family psychiatric history. SOCIAL HISTORY: Patient was born and raised in [facility]. She is for more than 20 years. She has one child who is currently 39 years old. She reports no legal history or history of service. She states that she is [employer]. She attended some college. MENTAL STATUS EXAM: General Appearance: Patient appears to be stated age is alert, pleasant, and cooperative. Patient appears to have fair hygiene and grooming wearing hospital gown with fair eye contact. Behavior: Patient is calmly lying in bed without any agitated behavior. Speech: Patient's speech is fluent and nonpressured. Mood/Affect: Patient reports their mood is "a little depressed because of the CHF", affect is euthymic. Suicidality/Homicidality: Patient vehemently denies any suicidal or homicidal ideation, intention, and/or plan. Perceptions: Patient denies any visual hallucinations and denies any auditory hallucinations Though content/process: There is no evidence of any delusional thought content and thought process is linear and goal-directed. Memory and concentration: AOX3, grossly intact for the purposes of this session. Can spell "WORLD" backwards Judgment and insight: Fair Vital Signs Temp 97.5 F L 04/12/23 11:25 Pulse 60 04/12/23 11:25 Resp 18 04/12/23 11:25 BP 102/72 04/12/23 11:25 Pulse Ox 98 04/12/23 11:25 FiO2 Intake & Output 04/11/23 04/12/23 04/12/23 18:59 06:59 18:59 Intake Total 31.435 688.168 66.74 Balance 31.435 688.168 66.74 Weight 40.823 kg 35.6 kg Intake: Intake, IV Titration 31.435 48.168 66.74 Amount Heparin Sod,Pork in 0.45% 31.435 48.168 66.74 NaCl 25,000 unit In 0.45 % NaCl 1 250ml.bag @ 12 UNITS/KG/HR 4.899 mls/hr IV .Q24H [facility] Rx#: [id number] Oral 640 Other: # Voids 1 1 1 Laboratory Results WBC 7.9 k/uL (3.8-10.6) 04/11/23 10:12 RBC 4.37 m/uL (3.80-5.40) 04/11/23 10:12 Hgb 14.1 gm/dL (11.4-16.0) 04/11/23 10:12 Hct 44.0 % (34.0-46.0) 04/11/23 10:12 MCV 100.8 fL (80.0-100.0) H 04/11/23 10:12 MCH 32.2 pg (25.0-35.0) 04/11/23 10:12 MCHC 32.0 g/dL (31.0-37.0) 04/11/23 10:12 RDW 13.7 % (11.5-15.5) 04/11/23 10:12 Plt Count 369 k/uL (150-450) 04/11/23 10:12 MPV 7.8 04/11/23 10:12 Neutrophils % 65 % 04/11/23 10:12 Lymphocytes % 26 % 04/11/23 10:12 Monocytes % 6 % 04/11/23 10:12 Eosinophils % 1 % 04/11/23 10:12 Basophils % 1 % 04/11/23 10:12 Neutrophils # 5.1 k/uL (1.3-7.7) 04/11/23 10:12 Lymphocytes # 2.1 k/uL (1.0-4.8) 04/11/23 10:12 Monocytes # 0.5 k/uL (0-1.0) 04/11/23 10:12 Eosinophils # 0.0 k/uL (0-0.7) 04/11/23 10:12 Basophils # 0.1 k/uL (0-0.2) 04/11/23 10:12 Hypochromasia Slight 04/10/23 23:34 Macrocytosis Slight 04/11/23 10:12 PT 12.0 sec (9.0-12.0) 04/12/23 08:39 INR 1.2 (<1.2) H 04/12/23 08:39 APTT 31.2 sec (22.0-30.0) H 04/12/23 08:40 D-Dimer 0.97 mg/L FEU (<0.60) H 04/10/23 23:34 Sodium 135 mmol/L (137-145) L 04/10/23 23:34 Potassium 5.1 mmol/L (3.5-5.1) 04/10/23 23:34 Chloride 103 mmol/L (98-107) 04/10/23 23:34 Carbon Dioxide 19 mmol/L (22-30) L 04/10/23 23:34 Anion Gap 13 mmol/L 04/10/23 23:34 BUN 14 mg/dL (7-17) 04/10/23 23:34 Creatinine 0.70 mg/dL (0.52-1.04) 04/10/23 23:34 Est GFR (CKD-EPI)AfAm >90 (>60 ml/min/1.73 sqM) 04/10/23 23:34 Est GFR (CKD-EPI)NonAf >90 (>60 ml/min/1.73 sqM) 04/10/23 23:34 Glucose 140 mg/dL (74-99) H 04/10/23 23:[address] Glu mg/dL 120 mg/dL 04/11/23 10:12 Hemoglobin A1c 5.8 % (<=6.0) 04/11/23 10:12 Calcium 9.6 mg/dL (8.4-10.2) 04/10/23 23:34 Magnesium 1.8 mg/dL (1.6-2.3) 04/10/23 23:34 Total Bilirubin 0.9 mg/dL (0.2-1.3) 04/10/23 23:34 AST 39 U/L (14-36) H 04/10/23 23:34 ALT 22 U/L (4-34) 04/10/23 23:34 Alkaline Phosphatase 68 U/L (38-126) 04/10/23 23:34 Troponin I 0.136 ng/mL (0.000-0.034) H* 04/11/23 05:49 NT-Pro-B Natriuret Pep 64845 pg/mL 04/10/23 23:34 Total Protein 8.1 g/dL (6.3-8.2) 04/10/23 23:34 Albumin 4.5 g/dL (3.5-5.0) 04/10/23 23:34 Triglycerides 116.00 mg/dL (0.00-149.00) 04/11/23 10:12 Cholesterol 219.00 mg/dL (0.00-200.00) H 04/11/23 10:12 LDL Cholesterol, Calc 128.1 mg/dL (0.0-131.0) 04/11/23 10:12 VLDL Cholesterol, Calc 23.20 mg/dL (5.00-40.00) 04/11/23 10:12 HDL Cholesterol 67.70 mg/dL (40.00-60.00) H 04/11/23 10:12 Cholesterol/HDL Ratio 3.23 Ratio 04/11/23 10:12 TSH 0.997 mIU/L (0.465-4.680) 04/10/23 23:34 IMPRESSIONS: Adjustment disorder Hypertensive emergency Non-ST elevation [place] Acute systolic CHF Severe left-sided hydronephrosis PLAN: -At this time patient DOES NOT meet criteria for inpatient psychiatric admission. The patient is not presenting with imminent risk of harm to self or others. At this time, her affect and her endorse symptoms are not consistent with severe depression. She is vehemently denying any suicidal or homicidal ideation. She is not overtly manic or psychotic. She expresses a strong desire to live as well as to recover from her current medical problems. -Approximately 20 minutes for spent finding patient with supportive psychotherapy and reflective listening. -Would recommend the following medication changes/additions: No medication recommendations be made at this time. Patient is not interested in starting any medications at this time. This, benefits, and treatment alternatives were discussed with the patient. -Patient does not require one-to-one sitter. -Psychiatry will sign off at this point, please contact with any questions. Should there be any acute change in the patient's presentation, please reconsult us. 04/12/23 13:29
--- NOTE | 2023-04-12 13:57 | P.PN ---
Subjective Progress Note Date: 04/12/23 History of present illness: This is a 58 year old female patient with no previous cardiac history. She has a past mental history for hypertension. Patient presented to the hospital regarding shortness of breath. And that her blood pressure was really high at home. She complains of some upper chest discomfort and difficulty with breathing. She states sometimes she has some tightness in her chest when she was sitting at home and then at work yesterday. She also developed dizziness and thought she was going to pass out and became sweaty. She denies having any previous cardiac history and no history of diabetes. Regarding her blood pressure, patient states that even with her blood pressure medications, her blood pressure readings are always high. Note on the computer that patient last took her blood pressure medications on 03/28. Patient also is an active smoker trying to quit. Patient was briefly on nitroglycerin drip in the emergency center which was discontinued before she arrived to the cardiac stepdown unit. EKG sinus tachycardia at 131 bpm Chest x-ray: Slightly prominent interstitial markings CBC unremarkable. D-dimer 0.97. Sodium 135, potassium 5.1, BUN 14 and creatinine 0.7. Troponin 0.033, 0.116, 0.136. CTA of the chest revealed no acute pulmonary embolism. Advanced emphysematous changes. Marked left hydronephrosis. Home cardiac medications: Amlodipine 5 mg daily, losartan hydrochlorothiazide. Note patient not taking medications. 04/12 Patient is seen today in follow-up. He has been made nothing by mouth for possible cardiac catheterization this morning but due to holiday, most likely will be delayed until tomorrow. Patient denies any chest pain right now. Echocardiogram reveals EF of 20-25%, dilated LV, moderate MR, moderate TR. Blood pressure 102/72, heart rate in the 60s to 80s patient voices concern that her blood pressure has never been this low. She states she has been always running high and probably has not been taking her medications at home for the past couple weeks. Weight is down 5 kg. She's been on Lasix 40 mg every 12 hours. Triglycerides 116, cholesterol 219, HDL 67, LDL 128 Physical examination: Gen: This is a cachectic appearing 58-year-old female. She is resting but appears to be in no acute distress. VS: reviewed HEENT: Head is atraumatic, normocephalic. Pupils equal, round. Sclerae is anicteric. NECK: Supple. No JVD. . LUNGS: Clear to auscultation. No wheezes or rhonchi. No intercostal retraction s. HEART: Regular rate and rhythm. No murmur. ABDOMEN: Soft No tenderness. EXTREMITIES: No pedal edema. No calf tenderness. NEUROLOGICAL: Patient is awake, alert and oriented x3. Assessment: Elevated troponin possibly secondary to tachycardia or hypertension, rule out non-ST elevated [place] Cardiomyopathy of unclear etiology Uncontrolled hypertension Sinus tachycardia Marked left hydronephrosis on CTA Tobacco use and dependence Plan: Continue patient on heparin drip Continue patient on aspirin 81 mg daily, Lipitor 40 mg daily, Toprol-XL 25 mg daily Discontinue IV Lasix Monitor I&O, daily weights, I's and renal function. Keep patient nothing by mouth after midnight for possible cardiac cat heterization tomorrow Further recommendations to follow based upon clinical course Nurse practitioner note has been reviewed, I agree with documented findings and plan of care. Patient was seen and examined. Objective - Vital Signs Vital signs: Vital Signs Temp 97.8 F 04/12/23 08:13 Pulse 64 04/12/23 08:13 Resp 18 04/12/23 08:13 BP 101/69 04/12/23 08:13 Pulse Ox 96 04/12/23 08:33 FiO2 Intake & Output 04/11/23 04/12/23 04/12/23 18:59 06:59 18:59 Intake Total 31.435 688.168 66.74 Balance 31.435 688.168 66.74 Weight 40.823 kg 35.6 kg Intake: Intake, IV Titration 31.435 48.168 66.74 Amount Heparin Sod,Pork in 0.45% 31.435 48.168 66.74 NaCl 25,000 unit In 0.45 % NaCl 1 250ml.bag @ 12 UNITS/KG/HR 4.899 mls/hr IV .Q24H [facility] Rx#: [id number] Oral 640 Other: # Voids 1 1 1 - Labs CBC & Chem 7: 04/11/23 10:12 04/10/23 23:34 Labs: Abnormal Lab Results - Last 24 Hours (Table) 04/11/23 04/11/23 04/11/23 Range/Units 10:12 10:12 10:12 MCV 100.8 H (80.0-100.0) fL INR (<1.2) APTT 21.8 L (22.0-30.0) sec Cholesterol 219.00 H (0.00-200.00) mg/dL HDL Cholesterol 67.70 H (40.00-60.00) mg/dL 04/11/23 04/12/23 04/12/23 Range/Units 22:42 08:39 08:40 MCV (80.0-100.0) fL INR 1.2 H (<1.2) APTT 35.8 H 31.2 H (22.0-30.0) sec Cholesterol (0.00-200.00) mg/dL HDL Cholesterol (40.00-60.00) mg/dL
[2023-04-12 16:48] LABS: ALT 20 U/L (4-34); AST 29 U/L (14-36); African American GFR (CKD) 84 (>60 ml/min/1.73 sqM); Albumin 3.8 g/dL (3.5-5.0); Alkaline Phosphatase 59 U/L (38-126); Anion Gap 8 mmol/L; Blood Urea Nitrogen 31 mg/dL (7-17); Calcium 9.1 mg/dL (8.4-10.2); Carbon Dioxide 23 mmol/L (22-30); Chloride 104 mmol/L (98-107); Glucose 136 mg/dL (74-99); Non-African American GFR(CKD) 73 (>60 ml/min/1.73 sqM); Sodium 135 mmol/L (137-145); Total Bilirubin 0.5 mg/dL (0.2-1.3); Total Protein 6.5 g/dL (6.3-8.2)
[2023-04-12] MEDS: HEPARIN SOD,PORK IN 0.45% NACL 25,000 UNIT in 0.45% NACL 1 250ML.BAG IV SCH (16:50)
[2023-04-12 16:54] LABS: Basophils % (A) 1 %; Eosinophils # (A) 0.1 k/uL (0-0.7); Eosinophils % (A) 3 %; HCT 40.7 % (34.0-46.0); Lymphocytes # (A) 1.7 k/uL (1.0-4.8); Lymphocytes % (A) 34 %; MCH 32.3 pg (25.0-35.0); MCHC 31.9 g/dL (31.0-37.0); MCV 101.1 fL (80.0-100.0); Macrocytosis Slight; Mean Platelet Volume 7.9; Monocytes # (A) 0.5 k/uL (0-1.0); Monocytes % (A) 10 %; Neutrophils # (A) 2.5 k/uL (1.3-7.7); Neutrophils % (A) 50 %; Platelet Count 316 k/uL (150-450); RBC 4.03 m/uL (3.80-5.40); RDW 13.5 % (11.5-15.5); WBC 4.9 k/uL (3.8-10.6)
--- NOTE | 2023-04-12 22:56 | CT ---
EXAMINATION TYPE: CT abdomen pelvis wo con DATE OF EXAM: 04/12/2023 COMPARISON: Ultrasound 04/11/2023 INDICATION: LT hydronephrosis DLP: 236.6 mGycm, Automated exposure control for dose reduction was used. CONTRAST: 0 mL of Isovue 300. Study performed without Oral Contrast TECHNIQUE: Axial images were obtained from above the diaphragm to the pubic rami in the axial plane a t 5 mm thick sections. Reconstructed images are reviewed on the computer in the coronal plane. FINDINGS: Limited CT sections are obtained the lung bases. The lung bases are clear. Emphysematous changes ar e present. CT ABDOMEN: Liver: Normal Spleen: Normal Pancreas: Normal Adrenal glands: The adrenal glands are normal. Gallbladder: Normal Kidneys: No masses are evident. Marked left hydronephrosis is evident. Hydroureter is not identified. There is a thin residual cortex present. No cysts are present. Right kidney appears unremarkable. Aorta: Minimal Vascular calcification is within the aorta. Inferior vena cava: Normal. CT PELVIS: Loops of bowel within the abdomen and pelvis are normal. Fecal debris is within the colon. No dil ated loops of bowel are evident. Appendix: Normal as visualized. Urinary bladder: Urinary bladder appears homogenous. Density is greater than expected for urine 45 Ho unsfield units. Internal debris should be considered. The wall is indistinct. Mass is not excluded. T his was better visualized on the renal ultrasound. Genitourinary structures: Uterus is in the right hemipelvis. Adnexa are unremarkable. Osseous structures: No suspicious lytic or sclerotic lesions. IMPRESSIONS: 1. Marked left hydronephrosis appears to be chronic. The etiology for obstruction is not identified. 2. Poor evaluation of the urinary bladder on this examination. No obvious abnormality evident. Densit y however is higher than typically expected.
[2023-04-13] MEDS ORDERED: ASPIRIN 325 MG TAB PO STA ×2 (07:56→07:58)
[2023-04-13] MEDS: ATORVASTATIN 40 MG TAB PO SCH (07:58)
[2023-04-13] MEDS: ASPIRIN 81 MG PO SCH (07:58)
[2023-04-13] MEDS ORDERED: ATORVASTATIN 80 MG TAB PO STA (08:01)
[2023-04-13] MEDS: METOPROLOL SUCCINATE (ER) 25 MG TAB.ER.24H PO SCH (08:05)
[2023-04-13 10:33] LABS: ALT 20 U/L (4-34); AST 31 U/L (14-36); African American GFR (CKD) 78 (>60 ml/min/1.73 sqM); Albumin 4.1 g/dL (3.5-5.0); Alkaline Phosphatase 63 U/L (38-126); Anion Gap 8 mmol/L; Blood Urea Nitrogen 27 mg/dL (7-17); Calcium 9.3 mg/dL (8.4-10.2); Carbon Dioxide 27 mmol/L (22-30); Chloride 102 mmol/L (98-107); Glucose 95 mg/dL (74-99); Non-African American GFR(CKD) 68 (>60 ml/min/1.73 sqM); Potassium 4.4 mmol/L (3.5-5.1); Sodium 137 mmol/L (137-145); Total Bilirubin 0.5 mg/dL (0.2-1.3)
[2023-04-13 11:45] LABS: Basophils % (A) 1 %; Eosinophils # (A) 0.1 k/uL (0-0.7); Eosinophils % (A) 2 %; HCT 41.3 % (34.0-46.0); HGB 12.7 gm/dL (11.4-16.0); Hypochromasia Slight; Lymphocytes # (A) 1.4 k/uL (1.0-4.8); Lymphocytes % (A) 39 %; MCHC 30.7 g/dL (31.0-37.0); MCV 103.9 fL (80.0-100.0); Macrocytosis Slight; Monocytes # (A) 0.3 k/uL (0-1.0); Monocytes % (A) 9 %; Neutrophils # (A) 1.6 k/uL (1.3-7.7); Neutrophils % (A) 47 %; Platelet Count 267 k/uL (150-450); RBC 3.98 m/uL (3.80-5.40); RDW 13.4 % (11.5-15.5); WBC 3.5 k/uL (3.8-10.6)
[2023-04-13] MEDS ORDERED: VERAPAMIL 2.5 MG/ML 2 ML AMP ONE (13:25)
[2023-04-13] MEDS ORDERED: HEPARIN SODIUM 1,000 UN/ML (10ML VL) ONE (13:25)
--- NOTE | 2023-04-13 13:45 | P.PN ---
Subjective Progress Note Date: 04/13/23 History of present illness: This is a 58 year old female patient with no previous cardiac history. She has a past mental history for hypertension. Patient presented to the hospital regarding shortness of breath. And that her blood pressure was really high at home. She complains of some upper chest discomfort and difficulty with breathing. She states sometimes she has some tightness in her chest when she was sitting at home and then at work yesterday. She also developed dizziness and thought she was going to pass out and became sweaty. She denies having any previous cardiac history and no history of diabetes. Regarding her blood pressure, patient states that even with her blood pressure medications, her blood pressure readings are always high. Note on the computer that patient last took her blood pressure medications on 03/28. Patient also is an active smoker trying to quit. Patient was briefly on nitroglycerin drip in the emergency center which was discontinued before she arrived to the cardiac stepdown unit. EKG sinus tachycardia at 131 bpm Chest x-ray: Slightly prominent interstitial markings CBC unremarkable. D-dimer 0.97. Sodium 135, potassium 5.1, BUN 14 and creatinine 0.7. Troponin 0.033, 0.116, 0.136. CTA of the chest revealed no acute pulmonary embolism. Advanced emphysematous changes. Marked left hydronephrosis. Home cardiac medications: Amlodipine 5 mg daily, losartan hydrochlorothiazide. Note patient not taking medications. 04/12 Patient is seen today in follow-up. He has been made nothing by mouth for possible cardiac catheterization this morning but due to holiday, most likely will be delayed until tomorrow. Patient denies any chest pain right now. Echocardiogram reveals EF of 20-25%, dilated LV, moderate MR, moderate TR. Blood pressure 102/72, heart rate in the 60s to 80s patient voices concern that her blood pressure has never been this low. She states she has been always running high and probably has not been taking her medications at home for the past couple weeks. Weight is down 5 kg. She's been on Lasix 40 mg every 12 hours. Triglycerides 116, cholesterol 219, HDL 67, LDL 128 04/13 Again reviewed the echocardiogram results with the patient. She has been nothing by mouth for cardiac catheterization which will be performed this afternoon. She denies having any chest pain or shortness of breath at this time. Blood pressure 99/69, heart rate is in the 50s and 60s. Repeat blood work reveals WBC 3.5, hemoglobin 12.7, BUN 27 creatinine 0.93, potassium 4.4. Physical examination: Gen: This is a cachectic appearing 58-year-old female. She is resting, appears to be in no acute distress. VS: reviewed HEENT: Head is atraumatic, normocephalic. Pupils equal, round. Sclerae is anicteric. NECK: Supple. No JVD. . LUNGS: Clear to auscultation. No wheezes or rhonchi. No intercostal retractions. HEART: Regular rate and rhythm. No murmur. ABDOMEN: Soft No tenderness. EXTREMITIES: No pedal edema. No calf tenderness. NEUROLOGICAL: Patient is awake, alert and oriented x3. Assessment: Elevated troponin possibly secondary to tachycardia or hypertension, rule out non-ST elevated [place] Cardiomyopathy of unclear etiology Uncontrolled hypertension Sinus tachycardia Marked left hydronephrosis on CTA Tobacco use and dependence Plan: Continue patient on heparin drip Continue patient on aspirin 81 mg daily, Lipitor 40 mg daily, Toprol-XL 25 mg daily Schedule patient for cardiac catheterization today Further recommendations to follow based upon clinical course Nurse practitioner note has been reviewed, I agree with documented findings and plan of care. Patient was seen and examined. Objective - Vital Signs Vital signs: Vital Signs Temp 97.5 F L 04/13/23 12:32 Pulse 63 04/13/23 12:32 Resp 16 04/13/23 12:32 BP 99/69 04/13/23 12:32 Pulse Ox 97 04/13/23 12:32 FiO2 Intake & Output 04/12/23 04/13/23 04/13/23 18:59 06:59 18:59 Intake Total 524.805 Balance 524.805 Intake: Intake, IV Titration 170.805 Amount Heparin Sod,Pork in 0.45% 170.805 NaCl 25,000 unit In 0.45 % NaCl 1 250ml.bag @ 12 UNITS/KG/HR 4.899 mls/hr IV .Q24H [facility] Rx#: [id number] Oral 354 Other: # Voids 1 1 1 - Labs CBC & Chem 7: 04/13/23 09:39 04/13/23 09:39 Labs: Abnormal Lab Results - Last 24 Hours (Table) 04/12/23 04/12/23 04/12/23 Range/Units 16:11 16:11 16:11 WBC (3.8-10.6) k/uL MCV 101.1 H (80.0-100.0) fL MCHC (31.0-37.0) g/dL APTT 38.0 H (22.0-30.0) sec Sodium 135 L (137-145) mmol/L BUN 31 H (7-17) mg/dL Glucose 136 H (74-99) mg/dL 04/12/23 04/13/23 04/13/23 Range/Units 22:20 09:39 09:39 WBC 3.5 L (3.8-10.6) k/uL MCV 103.9 H (80.0-100.0) fL MCHC 30.7 L (31.0-37.0) g/dL APTT 44.4 H (22.0-30.0) sec Sodium (137-145) mmol/L BUN 27 H (7-17) mg/dL Glucose (74-99) mg/dL 04/13/23 Range/Units 11:16 WBC (3.8-10.6) k/uL MCV (80.0-100.0) fL MCHC (31.0-37.0) g/dL APTT 60.7 H (22.0-30.0) sec Sodium (137-145) mmol/L BUN (7-17) mg/dL Glucose (74-99) mg/dL
--- NOTE | 2023-04-13 15:00 | P.PN ---
Subjective Progress Note Date: 04/13/23 patient is a 58-year-old old lady with past medical history significant for hypertension noncompliant with medications who presented to the ER because of high blood pressure and feeling anxious. Patient stated that she has been having high blood pressure for a a while but has not been taking any medications for it. Patient stated that today she became more anxious and was complaining of shortness of breath. She was also noticing chest pressure central in location, nonradiating, no aggravating or relieving factors associated with this chest pressure. Because of anxiety and elevated blood pressure, patient came to the ER. Recent blood work in the ER showed WBC 7.7, hemoglobin 13.9, sodium 139, p otassium 5.1, BUN 14, creatinine 0.7, proBNP was elevated at 19,300 Chest CTA done was negative for PE, showed advanced emphysematous changes EKG done did not show any acute segment changes, no T-wave inversions Patient was admitted to medicine service 04/12. Patient seen and examined. No further episodes of chest pain. Patient is very anxious, denies any suicidal thoughts at this time. Sister at the bedside, agrees with the patient is very anxious. 04/13. Patient seen and examined. Still complaining of chest pressure on and off. Denies any difficulty breathing REVIEW OF SYSTEMS: CONSTITUTIONAL: No fever, no malaise,. CARDIOVASCULAR: no palpitations, no syncope. PULMONARY: No shortness of breath, no cough, GASTROINTESTINAL: No diarrhea, no nausea, no vomiting, no abdominal pain. NEUROLOGICAL: No headaches, no weakness, PHYSICAL EXAMINATION: GENERAL: The patient is alert and oriented x3, not in any acute distress. Well developed, well nourished. HEENT: Pupils are round and equally reacting to light. EOMI. No scleral icterus. No conjunctival pallor. Normocephalic, atraumatic. No pharyngeal erythema. No thyromegaly. CARDIOVASCULAR: S1 and S2 present. No murmurs, rubs, or gallops. PULMONARY: Chest is clear to auscultation, no wheezing or crackles. ABDOMEN: Soft, nontender, nondistended, normoactive bowel sounds. No palpable organomegaly. MUSCULOSKELETAL: No joint swelling or deformity. EXTREMITIES: No cyanosis, clubbing, or pedal edema. NEUROLOGICAL: Gross neurological examination did not reveal any focal deficits. SKIN: No rashes. Assessment and plan Hypertensive emergency Non-ST elevation AL Acute systolic CHF Severe left-sided hydronephrosis Anxiety Depression Monitor vital signs Monitor CBC monitor CMP Trend troponins. Strict I's and O's Daily weights 2-D echo done shows dilated left ventricle with severely reduced LVEF of less than 35% Continue IV Lasix 40 g every 12 Continue pharmacy dose heparin Follow-up on cardiology recommendations, currently nothing by mouth, going for cardiac catheter today Psychiatry consulted, they evaluated the patient, at this time patient is not a threat to herself or to anyone, patient is not interested in being started any new medications. urology consulted for left-sided hydronephrosis, they ordered CT abdominal and showed marked left hydronephrosis which appears chronic, etiology could not be determined, urology following Objective - Vital Signs Vital signs: Vital Signs Temp 97.6 F 04/13/23 07:54 Pulse 55 L 04/13/23 07:54 Resp 16 04/13/23 07:54 BP 110/83 04/13/23 07:54 Pulse Ox 97 04/13/23 07:54 FiO2 Intake & Output 04/12/23 04/13/23 04/13/23 18:59 06:59 18:59 Intake Total 524.805 Balance 524.805 Intake: Intake, IV Titration 170.805 Amount Heparin Sod,Pork in 0.45% 170.805 NaCl 25,000 unit In 0.45 % NaCl 1 250ml.bag @ 12 UNITS/KG/HR 4.899 mls/hr IV .Q24H REPLACED BY [facility] Rx#: [id number] Oral 354 Other: # Voids 1 1 1 - Labs CBC & Chem 7: 04/13/23 09:39 04/13/23 09:39 Labs: Abnormal Lab Results - Last 24 Hours (Table) 04/12/23 04/12/23 04/12/23 Range/Units 16:11 16:11 16:11 MCV 101.1 H (80.0-100.0) fL APTT 38.0 H (22.0-30.0) sec Sodium 135 L (137-145) mmol/L BUN 31 H (7-17) mg/dL Glucose 136 H (74-99) mg/dL 04/12/23 Range/Units 22:20 MCV (80.0-100.0) fL APTT 44.4 H (22.0-30.0) sec Sodium (137-145) mmol/L BUN (7-17) mg/dL Glucose (74-99) mg/dL
[2023-04-13] MEDS: HEPARIN SOD,PORK IN 0.45% NACL 25,000 UNIT in 0.45% NACL 1 250ML.BAG IV SCH (16:45)
[2023-04-14] MEDS: METOPROLOL SUCCINATE (ER) 25 MG TAB.ER.24H PO SCH (05:47)
--- NOTE | 2023-04-14 07:11 | P.PN ---
Subjective Progress Note Date: 04/14/23 Principal diagnosis: Acute coronary syndrome The patient is a 58-year-old female patient who was admitted to the hospital with a chest discomfort and ruled in for acute chronic syndrome. Also she underwent an echo which revealed cardiomyopathy. March [id number] She was evaluated this morning. She is in process of having a heart catheterization. She is asymptomatic and hemodynamically stable. The procedure in details was explained to her. The plan is to pursue a heart catheterization this morning The examination is unremarkable with stable vital signs and regular rate and rhythm. Assessment Acute non-ST elevation myocardial infarction Cardiomyopathy Multiple comorbid conditions Plan Continue the current medical regimen Procedures coronary angiogram Objective - Vital Signs Vital signs: Vital Signs Temp 98.1 F 04/14/23 04:00 Pulse 63 04/14/23 04:00 Resp 18 04/14/23 04:00 BP 110/78 04/14/23 04:00 Pulse Ox 100 04/14/23 04:00 FiO2 Intake & Output 04/13/23 04/14/23 04/14/23 18:59 06:59 18:59 Intake Total 214.347 Output Total 1 Balance 214.347 -1 Intake: Intake, IV Titration 214.347 Amount Heparin Sod,Pork in 0.45% 214.347 NaCl 25,000 unit In 0.45 % NaCl 1 250ml.bag @ 12 UNITS/KG/HR 4.899 mls/hr IV .Q24H [facility] Rx#: [id number] Output: Urine 1 Other: # Voids 3 - Labs CBC & Chem 7: 04/13/23 09:39 04/13/23 09:39 Labs: Abnormal Lab Results - Last 24 Hours (Table) 04/13/23 04/13/23 04/13/23 Range/Units 09:39 09:39 11:16 WBC 3.5 L (3.8-10.6) k/uL MCV 103.9 H (80.0-100.0) fL MCHC 30.7 L (31.0-37.0) g/dL APTT 60.7 H (22.0-30.0) sec BUN 27 H (7-17) mg/dL 04/13/23 Range/Units 21:58 WBC (3.8-10.6) k/uL MCV (80.0-100.0) fL MCHC (31.0-37.0) g/dL APTT 52.3 H (22.0-30.0) sec BUN (7-17) mg/dL
[2023-04-14] MEDS ORDERED: ASPIRIN 81 MG PO ONE (07:55)
[2023-04-14] MEDS ORDERED: IV FLUID CONTINUATION 1,000 ML IV ONE (07:55)
[2023-04-14] MEDS ORDERED: MIDAZOLAM 2 MG/2 ML VIAL IVP ONE ×2 (08:22→08:29)
[2023-04-14] MEDS ORDERED: LIDOCAINE 1% INJ 10MG/ML (5 ML VIAL-PF) SQ ONE (08:23)
[2023-04-14] MEDS: VERAPAMIL SYRINGE (5 MG/10 ML) INTRAARTER ONE ×2 (08:24→08:30)
[2023-04-14] MEDS: NITROGLYCERIN 1000MCG/10ML SYRINGE INTRACORON ONE ×2 (08:37→08:51)
[2023-04-14] MEDS: HEPARIN SODIUM 1,000 UN/ML (10ML VL) IV ONE ×2 (08:37→08:47)
[2023-04-14] MEDS ORDERED: PHENYLEPHRINE-0.9% NACL SYG 1,000 MCG/10 ML SYRINGE IV ONE (08:52)
[2023-04-14] MEDS ORDERED: PRASUGREL 10 MG TAB ONE (08:58)
[2023-04-14] MEDS ORDERED: PRASUGREL 10 MG TAB PO ONE (09:01)
[2023-04-14] MEDS ORDERED: IOPAMIDOL-370 100ML BTL INJ ONE (09:02)
[2023-04-14] MEDS ORDERED: MAG HYDROX/AL HYDROX/SIMETH 30 ML CUP PO PRN (09:06)
[2023-04-14] MEDS ORDERED: ZOLPIDEM 5 MG TAB PO PRN (09:06)
[2023-04-14] MEDS ORDERED: ATROPINE SULFATE 0.1 MG/ML 10ML SYRINGE IV PRN (09:06)
[2023-04-14] MEDS ORDERED: RX INFO: IV CONTRAST WAS GIVEN 1 EACH MISC MISCELLANE PRN (09:06)
[2023-04-14] MEDS ORDERED: NITROGLYCERIN SL TABS 0.4 MG TAB SUBLINGUAL PRN (09:06)
--- NOTE | 2023-04-14 09:10 | P.PCN ---
Date of Procedure: 04/14/23 Operative Findings: CARDIAC CATHETERIZATION AND PERCUTANEOUS CORONARY INTERVENTION PERFORMING PHYSICIAN: Douglas Vargas MD, [facility] PROCEDURE PERFORMED: 1. Selective right and left coronary angiogram 2. Left heart catheterization 3. Successful stenting of mid LAD using 3.5 x 38 mm Xience BECCA with an excellent angiographic results 4. Adjunctive use of intravascular ultrasound 5. Ultrasound-guided access of the right radial artery INDICATION: Acute non-ST elevation myocardial infarction COMPLICATION: None APPROACH: Right radial artery LEVEL OF SEDATION: Moderate with the sedation time off 40 minutes PROCEDURE DESCRIPTION: After obtaining an informed consent the patient was brought to the cardiac systems testing laboratory technician. The right radial artery was cannulated using micropuncture technique under ultrasound guidance, the micropuncture wire passed easily then I placed a 6- Prydeinig sheath I gave the patient after that 2 mg of verapamil intra-arterial. Heparin was given throughout the procedure with continuous ACT monitoring. Selective right and left coronary angiogram performed using JR4 and JL 3.5 catheters. Left heart catheterization was performed using 5-Prydeinig pigtail catheter. After that I did intervene on the LAD SELECTIVE CORONARY ANGIOGRAM: The right coronary artery: Large caliber vessel and a dominant vessel appears to be angiographically normal. Left main: It is angiographically normal. Bifurcates into an LCx and LAD The left circumflex: Is a large caliber vessel nondominant vessel appears to be normal was normal OM1. The left anterior descending artery: The mid LAD has 2 tandem lesions appears to be in the range of 80%. The proximal and distal LAD appears to have mild disease only HEMODYNAMICS: The LVEDP was 14 mmHg was no significant gradient across aortic valve PCI OF THE LAD: Anticoagulation was initiated using heparin will continuous ACT monitoring. Subsequently I did engage the left main using JL 3.5 guiding catheter. The LAD was wired using a run-through wire. Intravascular ultrasound was performed and showed a diameter of the LAD in the midportion about 3.5 mm. Predilatation was performed using 2.5 mm balloon before I deployed 3.5 x 38 mm stent where the stent was positioned under fluoroscopy guidance and deployed under fluoroscopy guidance and postdilated using 3.5 mm noncompliant balloon with final intravascular ultrasound and angiogram showed excellent angiographic results. CONCLUSION: Critical disease involving the mid LAD. I did perform successful stenting of the LAD POSTPROCEDURE MANAGEMENT: 1. Dual antiplatelet therapy using aspirin and Effient for 12 month 2. Aggressive cholesterol control 3. Follow-up with the patient
[2023-04-14] MEDS ORDERED: SODIUM CHLORIDE 0.9% 1,000 ML in EMPTY BAG 1 BAG IV SCH (09:15)
[2023-04-14] MEDS: ASPIRIN 81 MG PO SCH (09:24)
[2023-04-14] MEDS: HEPARIN SOD,PORK IN 0.45% NACL 25,000 UNIT in 0.45% NACL 1 250ML.BAG IV SCH (09:25)
[2023-04-14] MEDS: ATORVASTATIN 40 MG TAB PO SCH (09:27)
[2023-04-14] MEDS ORDERED: ALPRAZolam 0.25 MG TAB PO STA (12:09)
[2023-04-14] MEDS ORDERED: ALPRAZolam 0.5 MG TAB PO PRN (12:41)
[2023-04-14] MEDS ORDERED: NITROGLYCERIN-D5W PMX 50 MG in DEXTROSE/WATER 1 250ML.BAG IV SCH (13:00)
--- NOTE | 2023-04-14 18:56 | P.GSCN ---
History of Present Illness Consult date: 04/14/23 Reason for Consult: Hydronephrosis Requesting physician: Anna Madden History of present illness: The patient is a 58-year-old white female with a history of hypertension. She was admitted with complaints of shortness of breath, anxiety, and uncontrolled hypertension due to noncompliance of her medications. Renal ultrasound showed evidence of left hydronephrosis. CT scan shows marked hydronephrosis with thinned parenchyma. There is no evidence of ureteral dilation. The right kidney appears normal. The patient does report occasional vague left flank discomfort. She denies any prior history of urolithiasis. She has been treated for a UTI in the remote past. Review of Systems - Respiratory Reports dyspnea - Genitourinary Genitourinary: Reports flank pain, Denies dysuria, Denies hematuria - Psychiatric Reports anxiety Past Medical History Past Medical History: COPD, Hypertension Additional Past Medical History / Comment(s): anxiety History of Any Multi-Drug Resistant Organisms: None Reported Past Surgical History: No Surgical Hx Reported Past Anesthesia/Blood Transfusion Reactions: No Reported Reaction Past Psychological History: Anxiety, Depression Smoking Status: Current some day smoker Past Alcohol Use History: Abuse, Daily, Heavy Additional Past Alcohol Use History / Comment(s): used to drink daily quit doing that a few months ago Past Drug Use History: None Reported Medications and Allergies Home Medications Medication Instructions Recorded Confirmed Type Losartan-Hctz 50-12.5 mg [Hyzaar 1 tab PO DAILY 04/11/23 04/11/23 History 50-12.5] amLODIPine [Norvasc] 5 mg PO DAILY 04/11/23 04/11/23 History Allergies Allergy/AdvReac Type Severity Reaction Status Date / Time Sulfa (Sulfonamide Allergy Unknown Verified 04/11/23 07:04 Antibiotics) Surgical - Exam Vital Signs Resp 32 H 04/11/23 00:00 - General well developed, well nourished, no distress - Respiratory normal respiratory effort - Abdomen Abdomen: soft, non tender, no guarding, no rigid, no rebound - Psychiatric oriented to time, oriented to person, oriented to place, speech is normal, memory intact Results - Labs 04/13/23 09:39 04/13/23 09:39 Abnormal Lab Results - Last 24 Hours (Table) 04/12/23 04/13/23 04/13/23 Range/Units 22:20 09:39 09:39 WBC 3.5 L (3.8-10.6) k/uL MCV 103.9 H (80.0-100.0) fL MCHC 30.7 L (31.0-37.0) g/dL APTT 44.4 H (22.0-30.0) sec BUN 27 H (7-17) mg/dL 04/13/23 Range/Units 11:16 WBC (3.8-10.6) k/uL MCV (80.0-100.0) fL MCHC (31.0-37.0) g/dL APTT 60.7 H (22.0-30.0) sec BUN (7-17) mg/dL Diabetes panel 04/13/23 Range/Units 09:39 Sodium 137 (137-145) mmol/L Potassium 4.4 (3.5-5.1) mmol/L Chloride 102 (98-107) mmol/L Carbon Dioxide 27 (22-30) mmol/L BUN 27 H (7-17) mg/dL Creatinine 0.93 (0.52-1.04) mg/dL Glucose 95 (74-99) mg/dL Calcium 9.3 (8.4-10.2) mg/dL AST 31 (14-36) U/L ALT 20 (4-34) U/L Alkaline Phosphatase 63 (38-126) U/L Total Protein 7.0 (6.3-8.2) g/dL Albumin 4.1 (3.5-5.0) g/dL Calcium panel 04/13/23 Range/Units 09:39 Calcium 9.3 (8.4-10.2) mg/dL Albumin 4.1 (3.5-5.0) g/dL Pituitary panel 04/13/23 Range/Units 09:39 Sodium 137 (137-145) mmol/L Potassium 4.4 (3.5-5.1) mmol/L Chloride 102 (98-107) mmol/L Carbon Dioxide 27 (22-30) mmol/L BUN 27 H (7-17) mg/dL Creatinine 0.93 (0.52-1.04) mg/dL Glucose 95 (74-99) mg/dL Calcium 9.3 (8.4-10.2) mg/dL Adrenal panel 07/05/23 Range/Units 09:39 Sodium 137 (137-145) mmol/L Potassium 4.4 (3.5-5.1) mmol/L Chloride 102 (98-107) mmol/L Carbon Dioxide 27 (22-30) mmol/L BUN 27 H (7-17) mg/dL Creatinine 0.93 (0.52-1.04) mg/dL Glucose 95 (74-99) mg/dL Calcium 9.3 (8.4-10.2) mg/dL Total Bilirubin 0.5 (0.2-1.3) mg/dL AST 31 (14-36) U/L ALT 20 (4-34) U/L Alkaline Phosphatase 63 (38-126) U/L Total Protein 7.0 (6.3-8.2) g/dL Albumin 4.1 (3.5-5.0) g/dL - Imaging CT scan - abdomen: report reviewed, image reviewed US - kidney/bladder: report reviewed Assessment and Plan Assessment: The presence of marked left hydronephrosis without ureteral dilation suggests congenital UPJ obstruction. Unfortunately, the parenchyma is very thinned and there is no salvageable left renal function. However, the hydronephrosis may be the cause of her intermittent left flank discomfort and may also be contributing to her hypertension. (1) Unspecified hydronephrosis Current Visit: Yes Status: Acute Code(s): N13.30 - UNSPECIFIED HYDRONEPHROSIS SNOMED Code(s): 58249830 Plan: I do not recommend any treatment for the hydronephrosis at this time. However, I have suggested that a nephrectomy at some point may be beneficial in terms of alleviating her flank discomfort and hypertension, though it is entirely possible that neither will improve. Please notify me if we can be of any further assistance. Time with Patient: Greater than 30
--- NOTE | 2023-04-15 07:30 | P.PN ---
Subjective Progress Note Date: 04/15/23 Principal diagnosis: Acute coronary syndrome The patient is a 58-year-old female patient who was admitted to the hospital with a chest discomfort and ruled in for acute chronic syndrome. Also she underwent an echo which revealed cardiomyopathy. March 152022 She was evaluated this morning. She is in process of having a heart catheterization. She is asymptomatic and hemodynamically stable. The procedure in details was explained to her. The plan is to pursue a heart catheterization this morning April 152022 The patient was seen and evaluated this morning. She underwent yesterday a heart catheterization and stenting of the LAD and also she was found to have a component of coronary vasospasm. She is asymptomatic at this point in time of chest pain or chest discomfort or shortness of breath. She has no more episodes of chest discomfort overnight. Currently she is on beta perla which I'm going to stop in the light of possible coronary vasospasm and also going to start her on oral nitrate and try to wean her from IV nitrate. Meanwhile continue dual antiplatelet therapy and increase the dose of statin. I would advise monitor the patient for additional 24 hours overnight. The examination is unremarkable with stable vital signs and regular rate and r hythm. Assessment Acute non-ST elevation myocardial infarction CAD and status post PCI of the LAD Cardiomyopathy Coronary vasospasm Multiple comorbid conditions Plan Continue dual antiplatelet therapy Increase the dose of statin to high intensity DC beta perla Add oral nitrates and wean her from IV nitrate Monitor the patient for additional 24-hour Objective - Vital Signs Vital signs: Vital Signs Temp 97.4 F L 04/15/23 04:00 Pulse 75 04/15/23 04:00 Resp 18 04/15/23 04:00 BP 112/76 04/15/23 04:00 Pulse Ox 98 04/15/23 04:00 FiO2 Intake & Output 04/14/23 04/15/23 04/15/23 18:59 06:59 18:59 Intake Total 420 Output Total 1 Balance 420 -1 Weight 37.4 kg Intake: IV 300 Oral 120 Output: Urine 1 Other: Voiding Method Toilet # Voids 1 # Bowel Movements 1 - Labs CBC & Chem 7: 04/13/23 09:39 04/13/23 09:39
[2023-04-15 07:56] LABS: Basophils % (A) 1 %; Eosinophils # (A) 0.1 k/uL (0-0.7); Eosinophils % (A) 1 %; HCT 39.5 % (34.0-46.0); HGB 12.4 gm/dL (11.4-16.0); Lymphocytes # (A) 1.6 k/uL (1.0-4.8); Lymphocytes % (A) 26 %; MCH 31.8 pg (25.0-35.0); MCHC 31.3 g/dL (31.0-37.0); MCV 101.8 fL (80.0-100.0); Macrocytosis Slight; Mean Platelet Volume 7.5; Monocytes # (A) 0.5 k/uL (0-1.0); Monocytes % (A) 7 %; Neutrophils % (A) 63 %; Platelet Count 282 k/uL (150-450); RBC 3.88 m/uL (3.80-5.40); RDW 13.6 % (11.5-15.5); WBC 6.4 k/uL (3.8-10.6)
[2023-04-15] MEDS: PRASUGREL 10 MG TAB PO SCH (08:02)
[2023-04-15] MEDS: ISOSORBIDE MONONITRATE ER 30 MG TAB.ER.24H PO SCH (08:03)
[2023-04-15] MEDS: ASPIRIN 81 MG PO SCH (08:03)
[2023-04-15] MEDS: ATORVASTATIN 80 MG TAB PO SCH (08:03)
[2023-04-15 08:06] LABS: African American GFR (CKD) 86 (>60 ml/min/1.73 sqM); Anion Gap 6 mmol/L; Blood Urea Nitrogen 19 mg/dL (7-17); Calcium 9.1 mg/dL (8.4-10.2); Carbon Dioxide 22 mmol/L (22-30); Chloride 106 mmol/L (98-107); Glucose 101 mg/dL (74-99); Non-African American GFR(CKD) 75 (>60 ml/min/1.73 sqM); Potassium 4.6 mmol/L (3.5-5.1); Sodium 134 mmol/L (137-145)
[2023-04-15 17:22] VITALS: BMI 16.6
--- NOTE | 2023-04-16 07:55 | P.PN ---
Subjective Progress Note Date: 04/16/23 Principal diagnosis: Acute coronary syndrome The patient is a 58-year-old female patient who was admitted to the hospital with a chest discomfort and ruled in for acute chronic syndrome. Also she underwent an echo which revealed cardiomyopathy. March 152022 She was evaluated this morning. She is in process of having a heart catheterization. She is asymptomatic and hemodynamically stable. The procedure in details was explained to her. The plan is to pursue a heart catheterization this morning April 152022 The patient was seen and evaluated this morning. She underwent yesterday a heart catheterization and stenting of the LAD and also she was found to have a component of coronary vasospasm. She is asymptomatic at this point in time of chest pain or chest discomfort or shortness of breath. She has no more episodes of chest discomfort overnight. Currently she is on beta perla which I'm going to stop in the light of possible coronary vasospasm and also going to start her on oral nitrate and try to wean her from IV nitrate. Meanwhile continue dual antiplatelet therapy and increase the dose of statin. I would advise monitor the patient for additional 24 hours overnight. April 162022 The patient was seen and evaluated this morning. She is asymptomatic and hemodynamically stable. She would like to stay for additional day since she lives by herself and she does have severe anxiety. She reports no pain in the chest and no shortness of breath. At this point I would continue the current medical regimen including dual antiplatelet therapy and oral nitrate and high intensity statin and follow-up with the patient. The examination is unremarkable with stable vital signs and regular rate and rhythm. Assessment Acute non-ST elevation myocardial infarction CAD and status post PCI of the LAD Cardiomyopathy Coronary vasospasm Multiple comorbid conditions Plan Continue dual antiplatelet therapy Monitor the patient for additional 24-hour Objective - Vital Signs Vital signs: Vital Signs Temp 97.6 F 04/16/23 00:00 Pulse 81 04/16/23 04:00 Resp 20 04/16/23 04:00 BP 119/78 04/16/23 04:00 Pulse Ox 96 04/16/23 04:00 FiO2 Intake & Output 04/15/23 04/16/23 04/16/23 18:59 06:59 18:59 Intake Total 30 10 Balance 30 10 Weight 37.4 kg 36.9 kg Intake: IV 10 Invasive Line 1 10 Intake, IV Titration 30 Amount Nitroglycerin-D5w Pmx 50 30 mg In Dextrose/Water 1 250ml.bag @ 5 MCG/MIN 1.5 mls/hr IV .Q24H [facility] Rx#: [id number] Other: Voiding Method Toilet Toilet # Voids 2 1 - Labs CBC & Chem 7: 04/15/23 07:39 04/15/23 07:39 Labs: Abnormal Lab Results - Last 24 Hours (Table) 04/15/23 04/15/23 Range/Units 07:39 07:39 MCV 101.8 H (80.0-100.0) fL Sodium 134 L (137-145) mmol/L BUN 19 H (7-17) mg/dL Glucose 101 H (74-99) mg/dL
[2023-04-16] MEDS: ATORVASTATIN 80 MG TAB PO SCH (08:27)
[2023-04-16] MEDS: PRASUGREL 10 MG TAB PO SCH (08:28)
[2023-04-16] MEDS: ISOSORBIDE MONONITRATE ER 30 MG TAB.ER.24H PO SCH (08:28)
[2023-04-16] MEDS: ASPIRIN 81 MG PO SCH (08:28)
--- NOTE | 2023-04-16 18:41 | P.PN ---
Subjective Progress Note Date: 04/14/23 58-year-old old lady with past medical history significant for hypertension noncompliant with medications who presented to the ER because of high blood pressure and feeling anxious. Patient stated that she has been having high blood pressure for a a while but has not been taking any medications for it. Patient stated that today she became more anxious and was complaining of shortness of breath. She was also noticing chest pressure central in location, nonradiating, no aggravating or relieving factors associated with this chest pressure. Because of anxiety and elevated blood pressure, patient came to the ER. Recent blood work in the ER showed WBC 7.7, hemoglobin 13.9, sodium 139, potassium 5.1, BUN 14, creatinine 0.7, proBNP was elevated at 19,300 Chest CTA done was negative for PE, showed advanced emphysematous changes EKG done did not show any acute segment changes, no T-wave inversions Patient was admitted to medicine service Objective - Vital Signs Vital signs: Vital Signs Temp 97.9 F 04/14/23 11:52 Pulse 76 04/14/23 12:36 Resp 22 04/14/23 11:52 BP 112/59 04/14/23 12:36 Pulse Ox 97 04/14/23 11:52 FiO2 Intake & Output 04/13/23 04/14/23 04/14/23 18:59 06:59 18:59 Intake Total 214.347 300 Output Total 1 Balance 214.347 -1 300 Intake: IV 300 Intake, IV Titration 214.347 Amount Heparin Sod,Pork in 0.45% 214.347 NaCl 25,000 unit In 0.45 % NaCl 1 250ml.bag @ 12 UNITS/KG/HR 4.899 mls/hr IV .Q24H [facility] Rx#: [id number] Output: Urine 1 Other: Voiding Method Toilet # Voids 3 - Exam PHYSICAL EXAMINATION: GENERAL: The patient is alert and oriented x3, not in any acute distress. Well developed, well nourished. HEENT: Pupils are round and equally reacting to light. EOMI. No scleral icterus. No conjunctival pallor. Normocephalic, atraumatic. No pharyngeal erythema. No thyromegaly. CARDIOVASCULAR: S1 and S2 present. No murmurs, rubs, or gallops. PULMONARY: Chest is clear to auscultation, no wheezing or crackles. ABDOMEN: Soft, nontender, nondistended, normoactive bowel sounds. No palpable organomegaly. MUSCULOSKELETAL: No joint swelling or deformity. EXTREMITIES: No cyanosis, clubbing, or pedal edema. NEUROLOGICAL: Gross neurological examination did not reveal any focal deficits. SKIN: No rashes. - Labs CBC & Chem 7: 04/15/23 07:39 04/15/23 07:39 Labs: Abnormal Lab Results - Last 24 Hours (Table) 04/13/23 Range/Units 21:58 APTT 52.3 H (22.0-30.0) sec Assessment and Plan Assessment: Hypertensive emergency Non-ST elevation MD Acute systolic CHF Severe left-sided hydronephrosis Anxiety Depression Monitor vital signs Monitor CBC monitor CMP Trend troponins. Strict I's and O's Daily weights 2-D echo done shows dilated left ventricle with severely reduced LVEF of less than 35% Continue IV Lasix 40 g every 12 Continue pharmacy dose heparin Follow-up on cardiology recommendations, currently nothing by mouth, going for cardiac catheter today Psychiatry consulted, they evaluated the patient, at this time patient is not a threat to herself or to anyone, patient is not interested in being started any new medications. urology consulted for left-sided hydronephrosis, they ordered CT abdominal and showed marked left hydronephrosis which appears chronic, etiology could not be determined, urology following
--- NOTE | 2023-04-16 18:44 | P.PN ---
Subjective Progress Note Date: 04/15/23 58-year-old old lady with past medical history significant for hypertension noncompliant with medications who presented to the ER because of high blood pressure and feeling anxious. Patient stated that she has been having high blood pressure for a a while but has not been taking any medications for it. Patient stated that today she became more anxious and was complaining of shortness of breath. She was also noticing chest pressure central in location, nonradiating, no aggravating or relieving factors associated with this chest pressure. Because of anxiety and elevated blood pressure, patient came to the ER. Recent blood work in the ER showed WBC 7.7, hemoglobin 13.9, sodium 139, potassium 5.1, BUN 14, creatinine 0.7, proBNP was elevated at 19,300 Chest CTA done was negative for PE, showed advanced emphysematous changes EKG done did not show any acute segment changes, no T-wave inversions Patient was admitted to medicine service 04/15/2023 Patient is seen and evaluated in the room at bedside; remains somewhat anxious; was complaining of some chest pain earlier in the day Patient is status post cardiac catheterization with stenting to LAD; patient is also suspected to have element of coronary vasospasm causing recurrent episodes of chest pain; patient is chest pain-free right now -- Cardiology recommending to discontinue beta blockers given coronary vasosp asm; patient has been placed on oral nitrates and plan is to wean off IV nitroglycerin infusion Continue with dual antiplatelet therapy Cardiology recommending to monitor patient for another 24 hours Objective - Vital Signs Vital signs: Vital Signs Temp 97.4 F L 04/15/23 07:54 Pulse 77 04/15/23 11:13 Resp 20 04/15/23 11:13 BP 115/75 04/15/23 11:13 Pulse Ox 94 L 04/15/23 11:13 FiO2 Intake & Output 04/14/23 04/15/23 04/15/23 18:59 06:59 18:59 Intake Total 420 30 Output Total 1 Balance 420 -1 30 Weight 37.4 kg Intake: IV 300 Intake, IV Titration 30 Amount Nitroglycerin-D5w Pmx 50 30 mg In Dextrose/Water 1 250ml.bag @ 5 MCG/MIN 1.5 mls/hr IV .Q24H [facility] Rx#: [id number] Oral 120 Output: Urine 1 Other: Voiding Method Toilet Toilet # Voids 1 1 # Bowel Movements 1 - Exam PHYSICAL EXAMINATION: GENERAL: The patient is alert and oriented x3, not in any acute distress. Well developed, well nourished. HEENT: Pupils are round and equally reacting to light. EOMI. No scleral icterus. No conjunctival pallor. Normocephalic, atraumatic. No pharyngeal erythema. No thyromegaly. CARDIOVASCULAR: S1 and S2 present. No murmurs, rubs, or gallops. PULMONARY: Chest is clear to auscultation, no wheezing or crackles. ABDOMEN: Soft, nontender, nondistended, normoactive bowel sounds. No palpable organomegaly. MUSCULOSKELETAL: No joint swelling or deformity. EXTREMITIES: No cyanosis, clubbing, or pedal edema. NEUROLOGICAL: Gross neurological examination did not reveal any focal deficits. SKIN: No rashes. - Labs CBC & Chem 7: 04/15/23 07:39 04/15/23 07:39 Labs: Abnormal Lab Results - Last 24 Hours (Table) 04/15/23 04/15/23 Range/Units 07:39 07:39 MCV 101.8 H (80.0-100.0) fL Sodium 134 L (137-145) mmol/L BUN 19 H (7-17) mg/dL Glucose 101 H (74-99) mg/dL Assessment and Plan Assessment: Hypertensive emergency Non-ST elevation MT Acute systolic CHF Severe left-sided hydronephrosis Anxiety Depression Monitor vital signs Monitor CBC monitor CMP Trend troponins. Strict I's and O's Daily weights 2-D echo done shows dilated left ventricle with severely reduced LVEF of less than 35% Continue IV Lasix 40 g every 12 Continue pharmacy dose heparin Follow-up on cardiology recommendations, currently nothing by mouth, going for cardiac catheter today Psychiatry consulted, they evaluated the patient, at this time patient is not a threat to herself or to anyone, patient is not interested in being started any new medications. urology consulted for left-sided hydronephrosis, they ordered CT abdominal and showed marked left hydronephrosis which appears chronic, etiology could not be determined, urology following
--- NOTE | 2023-04-16 18:46 | P.PN ---
Subjective Progress Note Date: 04/16/23 58-year-old old lady with past medical history significant for hypertension noncompliant with medications who presented to the ER because of high blood pressure and feeling anxious. Patient stated that she has been having high blood pressure for a a while but has not been taking any medications for it. Patient stated that today she became more anxious and was complaining of shortness of breath. She was also noticing chest pressure central in location, nonradiating, no aggravating or relieving factors associated with this chest pressure. Because of anxiety and elevated blood pressure, patient came to the ER. Recent blood work in the ER showed WBC 7.7, hemoglobin 13.9, sodium 139, potassium 5.1, BUN 14, creatinine 0.7, proBNP was elevated at 19,300 Chest CTA done was negative for PE, showed advanced emphysematous changes EKG done did not show any acute segment changes, no T-wave inversions Patient was admitted to medicine service 04/15/2023 Patient is seen and evaluated in the room at bedside; remains somewhat anxious; was complaining of some chest pain earlier in the day Patient is status post cardiac catheterization with stenting to LAD; patient is also suspected to have element of coronary vasospasm causing recurrent episodes of chest pain; patient is chest pain-free right now -- Cardiology recommending to discontinue beta blockers given coronary vasosp asm; patient has been placed on oral nitrates and plan is to wean off IV nitroglycerin infusion Continue with dual antiplatelet therapy Cardiology recommending to monitor patient for another 24 hours 04/16/2023 Patient is seen and evaluated in room at bedside; denies any further complaints of chest pain or shortness of breath; patient continues to report extreme anxiety given living situation; patient reports she lives alone at home and is apprehensive of going home alone; continues to have episodes of anxiety; currently on dual left antiplatelet therapy, oral nitrates and high-intensity statin Cardiology recommending to continue to monitor for the 24 hours Discharge 24 hours if remains stable Objective - Vital Signs Vital signs: Vital Signs Temp 97.8 F 04/16/23 11:59 Pulse 74 04/16/23 11:59 Resp 16 04/16/23 11:59 BP 112/73 04/16/23 11:59 Pulse Ox 98 04/16/23 11:59 FiO2 Intake & Output 04/15/23 04/16/23 04/16/23 18:59 06:59 18:59 Intake Total 30 240 Output Total 0 Balance 30 240 Weight 37.4 kg 36.9 kg Intake: IV 20 Invasive Line 1 20 Intake, IV Titration 30 Amount Nitroglycerin-D5w Pmx 50 30 mg In Dextrose/Water 1 250ml.bag @ 5 MCG/MIN 1.5 mls/hr IV .Q24H [facility] Rx#: [id number] Oral 220 Output: Gastric Drainage 0 Urine 0 Stool 0 Urine/Stool Mix 0 Emesis 0 Oral Regurgitation 0 Other: Voiding Method Toilet Toilet Toilet # Voids 2 1 0 # Bowel Movements 0 - Labs CBC & Chem 7: 04/15/23 07:39 04/15/23 07:39
[2023-04-17 07:56] VITALS: RESP 16
--- NOTE | 2023-04-17 08:03 | P.PN ---
Subjective Progress Note Date: 04/17/23 Principal diagnosis: Acute coronary syndrome The patient is a 58-year-old female patient who was admitted to the hospital with a chest discomfort and ruled in for acute chronic syndrome. Also she underwent an echo which revealed cardiomyopathy. March 152022 She was evaluated this morning. She is in process of having a heart catheterization. She is asymptomatic and hemodynamically stable. The procedure in details was explained to her. The plan is to pursue a heart catheterization this morning April 152022 The patient was seen and evaluated this morning. She underwent yesterday a heart catheterization and stenting of the LAD and also she was found to have a component of coronary vasospasm. She is asymptomatic at this point in time of chest pain or chest discomfort or shortness of breath. She has no more episodes of chest discomfort overnight. Currently she is on beta perla which I'm going to stop in the light of possible coronary vasospasm and also going to start her on oral nitrate and try to wean her from IV nitrate. Meanwhile continue dual antiplatelet therapy and increase the dose of statin. I would advise monitor the patient for additional 24 hours overnight. April 162022 The patient was seen and evaluated this morning. She is asymptomatic and hemodynamically stable. She would like to stay for additional day since she lives by herself and she does have severe anxiety. She reports no pain in the chest and no shortness of breath. At this point I would continue the current medical regimen including dual antiplatelet therapy and oral nitrate and high intensity statin and follow-up with the patient. April 172022 The patient was seen and evaluated this morning. She is asymptomatic. She is medically stable. She had no more chest pain or chest discomfort overnight. Currently she is on oral nitrate in addition to dual antiplatelet therapy and statin. Further cardiac risk of standpoint of view, the patient can be disch arged home. The examination is unremarkable with stable vital signs and regular rate and rhythm. Assessment Acute non-ST elevation myocardial infarction CAD and status post PCI of the LAD Cardiomyopathy Coronary vasospasm Multiple comorbid conditions Plan Continue dual antiplatelet therapy The patient can be discharged home Objective - Vital Signs Vital signs: Vital Signs Temp 97.7 F 04/17/23 07:52 Pulse 88 04/17/23 07:52 Resp 16 04/17/23 07:52 BP 120/84 04/17/23 07:52 Pulse Ox 98 04/17/23 07:52 FiO2 Intake & Output 04/16/23 04/17/23 04/17/23 18:59 06:59 18:59 Intake Total 360 20 10 Output Total 0 Balance 360 20 10 Weight 36.2 kg Intake: IV 20 20 10 Invasive Line 1 20 20 10 Oral 340 Output: Gastric Drainage 0 Urine 0 Stool 0 Urine/Stool Mix 0 Emesis 0 Oral Regurgitation 0 Other: Voiding Method Toilet Toilet Toilet # Voids 3 1 # Bowel Movements 0 - Labs CBC & Chem 7: 04/15/23 07:39 04/15/23 07:39
[2023-04-17] MEDS: ISOSORBIDE MONONITRATE ER 30 MG TAB.ER.24H PO SCH (08:20)
[2023-04-17] MEDS: ATORVASTATIN 80 MG TAB PO SCH (08:20)
[2023-04-17] MEDS: PRASUGREL 10 MG TAB PO SCH (08:20)
[2023-04-17] MEDS: ASPIRIN 81 MG PO SCH (08:20)
[2023-04-17 12:48] VITALS: BP 113/75; PULSE 75; TEMP 97.4
== END 2023-04-17 15:45 | disposition home or self-care (01) | DRG 174 ==
LOC: EC 23:27 → 2SICU 04-11 02:33 → 3SCARD 04-11 05:41
PROVIDERS: ADMIT Hospitalist; ATTEND Hospitalist
PROC: 027034Z Dilation of Coronary Artery, One Artery with Drug-eluting Intraluminal Device, Percutaneous Approach (ICD-10-PCS; principal; 2023-04-14 09:00)
PROC: 4A023N7 Measurement of Cardiac Sampling and Pressure, Left Heart, Percutaneous Approach (ICD-10-PCS; 2023-04-14 09:00)
PROC: B2111ZZ Fluoroscopy of Multiple Coronary Arteries using Low Osmolar Contrast (ICD-10-PCS; 2023-04-14 09:00)
DX: I21.4 Non-ST elevation (NSTEMI) myocardial infarction (principal); I50.21 Acute systolic (congestive) heart failure; I42.9 Cardiomyopathy, unspecified; N13.30 Unspecified hydronephrosis; I11.0 Hypertensive heart disease with heart failure; J44.9 Chronic obstructive pulmonary disease, unspecified; I25.111 Atherosclerotic heart disease of native coronary artery with angina pectoris with documented spasm; I16.1 Hypertensive emergency; F32.A Depression, unspecified; F41.9 Anxiety disorder, unspecified; F17.210 Nicotine dependence, cigarettes, uncomplicated; F43.20 Adjustment disorder, unspecified; T46.5X6A Underdosing of other antihypertensive drugs, initial encounter; T46.1X6A Underdosing of calcium-channel blockers, initial encounter; Z88.2 Allergy status to sulfonamides; Z91.148 Patient's other noncompliance with medication regimen for other reason; Z79.899 Other long term (current) drug therapy; Z79.02 Long term (current) use of antithrombotics/antiplatelets; Z79.82 Long term (current) use of aspirin
CPT/HCPCS: 36415; 71045; 71275; 74176; 76770; 80048; 80053; 80061; 82272; 83036; 83735; 83880; 84443; 84484; 85025; 85379; 85610; 85730; 92978; 93005; 93306; 93458; 94760; 96365; 96366; 96375; 99291

== ENCOUNTER 2023-10-19 13:01 | Inpatient (IN) | payer OTHER ==
[2023-10-19] MEDS ORDERED: NITROGLYCERIN OINT 1 INCH/GM PACKET TOPICAL STA (13:18)
--- NOTE | 2023-10-19 13:52 | ED ---
Chest Pain HPI - General Chief Complaint: Chest Pain Stated Complaint: Chest Pain Time Seen by Provider: 10/19/23 13:10 Source: patient, EMS, RN notes reviewed Mode of arrival: EMS Limitations: no limitations - History of Present Illness Initial Comments: 58-year-old female presents emergency department via EMS which complaint of chest pain. Patient states chest pain earlier she did receive nitro and aspirin by EMS states nitro took her pain away. Patient states she had a stent placed in April. Patient states she has some her squeezing, pressure-like pain in her side of her chest that radiates up and down her left arm. Patient does have history of COPD states that she did quit but started smoking again. Patient states she has a history of hyperlipidemia diabetes and hypertension - Related Data Home Medications Medication Instructions Recorded Confirmed Fluticasone Propion/Salmeterol 1 puff INHALATION RT-BID 10/19/23 10/19/23 [Advair 250-50 Diskus] Metoprolol Succinate [Toprol XL] 50 mg PO DAILY 10/19/23 10/19/23 Previous Rx's Medication Instructions Recorded Aspirin 81 mg PO DAILY tab 04/17/23 Atorvastatin [Lipitor] 80 mg PO DAILY 30 Days #30 tab 04/17/23 Isosorbide Mononitrate ER [Imdur] 30 mg PO DAILY 30 Days #30 tab 04/17/23 Prasugrel [Effient] 10 mg PO DAILY 30 Days #30 tab 04/17/23 Allergies Allergy/AdvReac Type Severity Reaction Status Date / Time Sulfa (Sulfonamide Allergy increased Verified 10/19/23 15:25 Antibiotics) BP Review of Systems ROS Statement: Those systems with pertinent positive or pertinent negative responses have been documented in the HPI. ROS Other: All systems not noted in ROS Statement are negative. EKG Findings - EKG Comments: EKG Findings:: EKG performed at 13:31 sinus rhythm with a rate of 86 [place] 133/105 QT/QTC 369/412 there is noted inverted T waves diffusely - EKG Results: EKG: interpreted by MICHAEL Past Medical History Past Medical History: Coronary Artery Disease (CAD), COPD, Diabetes Mellitus, Hypertension, Myocardial Infarction ([place]), Renal Disease Additional Past Medical History / Comment(s): anxiety History of Any Multi-Drug Resistant Organisms: None Reported Past Surgical History: Heart Catheterization With Stent Past Anesthesia/Blood Transfusion Reactions: No Reported Reaction Past Psychological History: Anxiety, Depression Smoking Status: Current every day smoker Past Alcohol Use History: Abuse, Daily, Heavy Past Drug Use History: None Reported General Exam Limitations: no limitations General appearance: alert, in no apparent distress Head exam: Present: atraumatic, normocephalic, normal inspection Eye exam: Present: normal appearance, PERRL, EOMI. Absent: scleral icterus, conjunctival injection, periorbital swelling ENT exam: Present: normal exam, normal oropharynx, mucous membranes moist Neck exam: Present: normal inspection, full ROM. Absent: tenderness, meningismus, lymphadenopathy Respiratory exam: Present: wheezes. Absent: normal lung sounds bilaterally, respiratory distress, rales, rhonchi, stridor Cardiovascular Exam: Present: regular rate, normal rhythm, normal heart sounds. Absent: systolic murmur, diastolic murmur, rubs, gallop, clicks GI/Abdominal exam: Present: soft, normal bowel sounds. Absent: distended, tenderness, guarding, rebound, rigid Neurological exam: Present: alert Skin exam: Present: warm, dry, intact, normal color. Absent: rash Course Vital Signs 10/19/23 10/19/23 13:16 13:21 Temperature 97.7 F Pulse Rate 86 Pulse Rate [ 84 Case Manager ] Respiratory 18 Rate Blood Pressure 146/119 O2 Sat by Pulse 98 Oximetry Chest Pain MDM - MDM Was pt. sent in by a medical professional or institution (CAROL Urias, CARE TECH, urgent care, hospital, or correction...) When possible be specific @ -No Did you speak to anyone other than the patient for history (EMS, parent, family, police, friend...)? What history was obtained from this source @ -No Did you review nursing and triage notes (agree or disagree)? Why? @ -I reviewed and agree with nursing and triage notes Were old charts reviewed (outside hosp., previous admission, EMS record, old EKG, old radiological studies, urgent care reports/EKG's, correction records)? Report findings @ -No old charts were reviewed Differential Diagnosis (chest pain, altered mental status, abdominal pain women, abdominal pain men, vaginal bleeding, weakness, fever, dyspnea, syncope, headache, dizziness, GI bleed, back pain, seizure, CVA, palpatations, mental health, musculoskeletal)? @ -Differential Chest Pain: Stable Angina, Unstable Angina, STEMI, NSTEMI Aortic Dissection, Pneumothorax, Musculoskeletal, Esophageal Spasm GERD, Cholecystitis, Pancreatitis, Zoster, this is not meant to be an all-inclusive list. EKG interpreted by me (3pts min.). @ -As above X-rays interpreted by me (1pt min.). @ -Chest x-ray shows no evidence of infiltrate, there is COPD changes CT interpreted by me (1pt min.). @ -None done U/S interpreted by me (1pt. min.). @ -None done What testing was considered but not performed or refused? (CT, X-rays, U/S, labs )? Why? @ -None What meds were considered but not given or refused? Why? @ -None Did you discuss the management of the patient with other professionals (professionals i.e. , PA, CARE TECH, lab, RT, psych nurse, social worker psychiatric, paper rewinder operator, teacher, service officer, keycase assembler)? Give summary @ -Dr. Lewis for admission secondary to NSTEMI. Dr. Vargas regarding initial troponin, mild EKG changes and recent stent. Patient will be taken to the [facility] for cardiac catheterization Was smoking cessation discussed for >3mins.? @ -35 min Was critical care preformed (if so, how long)? @ -No Were there social determinants of health that impacted care today? How? (Homelessness, low income, unemployed, alcoholism, drug addiction, transportation, low edu. Level, literacy, decrease access to med. care, group home, rehab)? @ -No Was there de-escalation of care discussed even if they declined (Discuss DNR or withdrawal of care, Hospice)? DNR status @ -No What co-morbidities impacted this encounter? (DM, HTN, Smoking, COPD, CAD, Cancer, CVA, ARF, Chemo, Hep., AIDS, mental health diagnosis, sleep apnea, morbid obesity)? @ -CAD, smoking, hypertension, hyperlipidemia Was patient admitted / discharged? Hospital course, mention meds given and route, prescriptions, significant lab abnormalities, going to OR and other pertinent info. @ -Admitted patient has elevated troponin at 0.8 patient was started on heparin, nitro drip. Patient repeat cardiac enzymes. Cardiology was contacted, wind tunnel engineer was contacted. Undiagnosed new problem with uncertain prognosis? @ -No Drug Therapy requiring intensive monitoring for toxicity (Heparin, Nitro, Insulin, Cardizem)? @ -yes Nitro and Were any procedures done? @ -No Diagnosis/symptom? @ -NSTEMI Acute, or Chronic, or Acute on Chronic? @ -[acute Uncomplicated (without systemic symptoms) or Complicated (systemic symptoms)? @ -complicated Side effects of treatment? @ -No Exacerbation, Progression, or Severe Exacerbation? @ -No Poses a threat to life or bodily function? How? (Chest pain, [place], [place], pneumonia, PE, COPD, DKA, ARF, appy, cholecystitis, CVA, Diverticulitis, Homicidal, Suicidal, threat to staff... and all critical care pts) @ -Yes NSTEMI Critical Care Time Critical Care Time: Yes Total Critical Care Time: 35 Disposition Clinical Impression: NSTEMI (non-ST elevated myocardial infarction) Disposition: ADMITTED IP TO THIS [facility] Condition: Fair Referrals: Champ Mcintyre MD [Primary Care Provider] - 1-2 days Time of Disposition: 15:02
[2023-10-19 14:31] LABS: Basophils % (A) 0 %; Eosinophils % (A) 0 %; HCT 37.7 % (34.0-46.0); HGB 12.6 gm/dL (11.4-16.0); Lymphocytes # (A) 0.9 k/uL (1.0-4.8); Lymphocytes % (A) 11 %; MCHC 33.4 g/dL (31.0-37.0); MCV 98.8 fL (80.0-100.0); Mean Platelet Volume 7.2; Monocytes # (A) 0.2 k/uL (0-1.0); Monocytes % (A) 3 %; Neutrophils # (A) 7.5 k/uL (1.3-7.7); Neutrophils % (A) 85 %; Platelet Count 245 k/uL (150-450); RBC 3.81 m/uL (3.80-5.40); RDW 12.9 % (11.5-15.5); WBC 8.8 k/uL (3.8-10.6)
--- NOTE | 2023-10-19 14:41 | XR ---
EXAMINATION TYPE: XR chest 2V DATE OF EXAM: 10/19/2023 COMPARISON: 04/11/2023 INDICATION: Chest pain TECHNIQUE: Frontal and lateral views of the chest are obtained. FINDINGS: The heart size is normal. The pulmonary vasculature is normal. There is hyperinflation and flattening of diaphragms compatible with COPD. Some mild infiltrate may be to the right mid lung. Correlate for atelectasis.. IMPRESSION: 1. COPD. 2. Atelectasis right midlung
[2023-10-19 14:44] LABS: ALT 20 U/L (4-34); AST 36 U/L (14-36); African American GFR (CKD) >90 (>60 ml/min/1.73 sqM); Albumin 4.4 g/dL (3.5-5.0); Alkaline Phosphatase 80 U/L (38-126); Anion Gap 14 mmol/L; Blood Urea Nitrogen 15 mg/dL (7-17); Calcium 9.2 mg/dL (8.4-10.2); Carbon Dioxide 21 mmol/L (22-30); Chloride 100 mmol/L (98-107); Glucose 129 mg/dL (74-99); Magnesium 1.8 mg/dL (1.6-2.3); Non-African American GFR(CKD) >90 (>60 ml/min/1.73 sqM); Potassium 4.7 mmol/L (3.5-5.1); Sodium 135 mmol/L (137-145); Total Bilirubin 0.4 mg/dL (0.2-1.3); Total Protein 7.5 g/dL (6.3-8.2)
[2023-10-19 14:49] LABS: Partial Thromboplastin Time 20.6 sec (22.0-30.0); Prothrombin Time 10.8 sec (10.0-12.5)
[2023-10-19 14:52] LABS: NT-Pro-B-Type Natriuretic Pept 7140 pg/mL
[2023-10-19] MEDS ORDERED: HEPARIN SODIUM 1,000 UN/ML (10ML VL) IV ONE ×2 (15:30→17:09)
[2023-10-19] MEDS ORDERED: HEPARIN SODIUM 1,000 UN/ML (10ML VL) IV PRN (15:30)
[2023-10-19] MEDS ORDERED: NITROGLYCERIN SL TABS 0.4 MG TAB SUBLINGUAL PRN (15:32)
[2023-10-19] MEDS ORDERED: NITROGLYCERIN-D5W PMX 50 MG in DEXTROSE/WATER 1 250ML.BAG IV ONE (15:42)
[2023-10-19] MEDS: HEPARIN SOD,PORK IN 0.45% NACL 25,000 UNIT in 0.45% NACL 1 250ML.BAG IV SCH (16:20)
[2023-10-19] MEDS ORDERED: LIDOCAINE 1% INJ 10MG/ML (20 ML MDV) ONE (16:34)
[2023-10-19] MEDS ORDERED: HEPARIN SODIUM 1,000 UN/ML (10ML VL) ONE (16:34)
[2023-10-19] MEDS ORDERED: VERAPAMIL 2.5 MG/ML 2 ML AMP ONE (16:34)
[2023-10-19] MEDS ORDERED: SODIUM CHLORIDE 0.9% 1,000 ML IV ONE (16:43)
--- NOTE | 2023-10-19 16:53 | P.HPIM ---
History of Present Illness H&P Date: 10/19/23 Chief Complaint: Chest pain This is a 58-year-old patient of follows with Dr. Mcintyre. Chronic stable medical conditions include COPD, hypertension, hyperlipidemia, chronic kidney disease, anxiety. In April 2023 patient had a non-ST elevation NM had a cardiac catheterization with stent to the mid LAD by Dr. Vargas. Patient decided not to follow-up as she was afraid. Also is due for a stress test. Patient been experienced chest pain on walking a few steps. Normally stops. Had decided not to see a parts advisor. This afternoon patient started having pain going across her chest. Going on the left arm. Associated with dizziness lightheadedness perspiration: Clammy. Also vomited. Pain lasts for at least 4 hours before she decided to come in. Still having active chest pain. Initial troponin is 0.8. Ruled in for acute non-Q-wave NM. Patient has continued to smoke. Review of systems: GEN.: Tired EYES: None HEENT: None NECK: None RESPIRATORY: Short of breath CARDIOVASCULAR: As above GASTROINTESTINAL: 1-2 bowel movements in a week GENITOURINARY: Chronic urinary urgency and hesitancy MUSCULOSKELETAL: Multiple joint pains LYMPHATICS: None HEMATOLOGICAL: None PSYCHIATRY: Anxiety NEUROLOGICAL: None Social history: Lives alone. Averaged a pack a day for 40 years stopped cut back about 6 months ago. Was drinking heavy alcohol them sometime ago. 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 Physical examination: VITAL SIGNS: 97.7, 86, 18, 138/78, 99% on 4 L GENERAL: BMI 78.7, declining but awake anxious.. EYES: Pupils equal. Conjunctiva normal. HEENT: External appearance of nose and ears normal, oral cavity grossly normal. NECK: JVD not raised; masses not palpable. HEART: First and second heart sounds are normal; no edema. LUNGS: Respiratory rate increased, decreased breath sounds. ABDOMEN: Soft, nontender, liver spleen not palpable, no masses palpable. PSYCH: Alert and oriented x3; mood and affect anxiousl. MUSCULOSKELETAL:No Clubbing/cyanosis;muscles-grossly intact. Loss of subcu interstitial muscle mass. Prominent bones. Evidence of OA. NEUROLOGICAL: Cranial nerves grossly intact; no facial asymmetry, power and sensation grossly intact. LYMPHATICS: No lymph nodes palpable in the axilla and neck INVESTIGATIONS, reviewed in the clinical context: 10/19/2023: White count 8.8 hemoglobin 12.6 platelets 245 sodium 135 potassium 4.7 creatinine 0.67 Troponin I 0.811 proBNP 7140 EKG tracing personally reviewed by me-sinus rhythm. p pulmonale. Flipped T waves in anterolateral leads. Chest x-ray film personally reviewed by me-hyperinflation Assessment and plan: -Acute non-Q-wave NM. Patient had chest pain for several hours still currently present. Has been having symptoms for quite a few days. Had decided not to follow-up with his parts advisor afraid about the consequences including . Aspirin. Beta perla. IV heparin. Cardiology consulted-lead cardiac catheterization. -CAD with stent to mid LAD in April [address] Vargas Aspirin. Effient. Toprol-XL. Lipitor. -Chronic bladder dysfunction with urinary hesitancy and frequency -COPD in a current smoker Advair -Chronic nicotine dependence, cigarette smoker Nicotine patch. Patient counseled -Essential hypertension Toprol-XL -Hyperlipidemia Lipitor -Primary osteoarthritis multiple joints bilaterally Tylenol as needed -Chronic constipation Add Metamucil -Severe protein calorie malnutrition Ensure. Consult dietitian. -Full code Past Medical History Past Medical History: Coronary Artery Disease (CAD), COPD, Diabetes Mellitus, Hypertension, Myocardial Infarction ([place]), Renal Disease Additional Past Medical History / Comment(s): anxiety History of Any Multi-Drug Resistant Organisms: None Reported Past Surgical History: Heart Catheterization With Stent Past Anesthesia/Blood Transfusion Reactions: No Reported Reaction Past Psychological History: Anxiety, Depression Smoking Status: Current every day smoker Past Alcohol Use History: Abuse, Daily, Heavy Past Drug Use History: None Reported Medications and Allergies Home Medications Medication Instructions Recorded Confirmed Type Aspirin 81 mg PO DAILY tab 04/17/23 10/19/23 Rx Atorvastatin [Lipitor] 80 mg PO DAILY 30 Days #30 tab 04/17/23 10/19/23 Rx Isosorbide Mononitrate ER [Imdur] 30 mg PO DAILY 30 Days #30 tab 04/17/23 10/19/23 Rx Prasugrel [Effient] 10 mg PO DAILY 30 Days #30 tab 04/17/23 10/19/23 Rx Fluticasone Propion/Salmeterol 1 puff INHALATION RT-BID 10/19/23 10/19/23 History [Advair 250-50 Diskus] Metoprolol Succinate [Toprol XL] 50 mg PO DAILY 10/19/23 10/19/23 History Allergies Allergy/AdvReac Type Severity Reaction Status Date / Time Sulfa (Sulfonamide Allergy increased Verified 10/19/23 15:25 Antibiotics) BP Physical Exam Vitals: Vital Signs Temp Pulse Pulse Resp BP Pulse Ox 10/19/23 16:21 98 18 138/78 99 10/19/23 13:21 84 10/19/23 13:16 97.7 F 86 18 146/119 98 Intake and Output 10/19/23 10/19/23 10/19/23 06:59 14:59 22:59 Other: Weight 39.825 kg Results CBC & Chem 7: 10/19/23 14:27 10/19/23 14:27 Labs: Abnormal Lab Results - Last 24 Hours (Table) 10/19/23 10/19/23 10/19/23 Range/Units 14:27 14:27 14:27 Lymphocytes # 0.9 L (1.0-4.8) k/uL APTT 20.6 L (22.0-30.0) sec Sodium 135 L (137-145) mmol/L Carbon Dioxide 21 L (22-30) mmol/L Glucose 129 H (74-99) mg/dL Troponin I (0.000-0.034) ng/mL 10/19/23 Range/Units 14:27 Lymphocytes # (1.0-4.8) k/uL APTT (22.0-30.0) sec Sodium (137-145) mmol/L Carbon Dioxide (22-30) mmol/L Glucose (74-99) mg/dL Troponin I 0.811 H* (0.000-0.034) ng/mL
[2023-10-19] MEDS ORDERED: TEMAZEPAM 15 MG CAP PO PRN (16:54)
[2023-10-19] MEDS ORDERED: ALPRAZolam 0.25 MG TAB PO PRN (16:54)
[2023-10-19] MEDS ORDERED: ACETAMINOPHEN TAB 325 MG TAB PO PRN (16:54)
[2023-10-19] MEDS ORDERED: ONDANSETRON 4 MG/2 ML VIAL IVP PRN (16:54)
[2023-10-19] MEDS ORDERED: NALOXONE 0.4 MG/ML 1 ML VIAL IV PRN (16:54)
[2023-10-19] MEDS ORDERED: LACTULOSE 20 GM/30 ML CUP PO PRN (16:54)
[2023-10-19] MEDS ORDERED: CALCIUM CARBONATE 500 MG CHEWABLE PO PRN (16:54)
[2023-10-19] MEDS ORDERED: MIDAZOLAM 2 MG/2 ML VIAL IVP ONE (17:05)
[2023-10-19] MEDS ORDERED: LIDOCAINE 1% INJ 10MG/ML (20 ML MDV) SQ ONE (17:06)
[2023-10-19] MEDS ORDERED: VERAPAMIL SYRINGE (5 MG/10 ML) INTRAARTER ONE (17:07)
[2023-10-19] MEDS ORDERED: NITROGLYCERIN SL TABS 0.4 MG TAB SUBLINGUAL ONE ×2 (17:10→17:11)
[2023-10-19] MEDS ORDERED: IOPAMIDOL-370 100ML BTL INJ ONE (17:16)
[2023-10-19] MEDS ORDERED: RX INFO: IV CONTRAST WAS GIVEN 1 EACH MISC MISCELLANE PRN (17:23)
--- NOTE | 2023-10-19 17:27 | P.PCN ---
Date of Procedure: 10/19/23 Operative Findings: CARDIAC CATHETERIZATION PERFORMING PHYSICIAN: Douglas Vargas MD, RPVI PROCEDURE PERFORMED: 1. Selective right and left coronary angiogram 2. Left heart catheterization 3. Ultrasound-guided access of the right radial artery INDICATION: Acute non-ST elevation myocardial infarction COMPLICATION: None APPROACH: Right radial artery LEVEL OF SEDATION: Moderate with a sedation length of 12 minutes PROCEDURE DESCRIPTION: After obtaining an informed consent, the patient was brought to cardiac laborer pullet farm. Local anesthesia was performed using lidocaine subcutaneously. The right radial artery was cannulated using Seldinger technique, the guidewire passed easily, following that we advanced a 5-[place] sheath dilator assembly, the wire and dilator were removed and sheath was flushed. Following that, 2 mg of verapamil along with 3000 unit heparin were given. Selective right and left coronary angiogram using a 6-[place] JR4 and JL 3.5 catheters. Following that we did left heart catheterization using the JR4 catheter. The procedure was completed there was no complication. SELECTIVE CORONARY ANGIOGRAM: The right coronary artery: Large caliber vessel and a dominant vessel and appears to be angiographically normal Left main: Is normal. Bifurcates into an LCx and LAD The left circumflex: Large caliber vessel nondominant vessel. The ostial/proximal left circumflex has a plaque appears to be in the range of 50%. The circumflex after that appeared to be angiographically normal The left anterior descending artery: The proximally appeared to be normal. The mid LAD is a stented and the stent is patent. The LAD gives rises into the first and second diagonal branches. The first diagonal branch has ostial haziness/lesion appeared to be in the range of 70-80%. The second diagonal branch appeared to have mild disease only. The mid LAD after that appeared to have an intermediate disease only HEMODYNAMICS: The LVEDP was about 24 mmHg was no significant gradient across aortic valve CONCLUSION: 1. Patent stent in the mid LAD. Severe ostial lesion involving the first diagonal branch with haziness likely represent plaque rupture and thrombus formation 2. Elevated left-sided filling pressure POSTPROCEDURE MANAGEMENT: Consider medical treatment at this point. Consider maximize medical treatment. Obtain an echocardiogram was Doppler
[2023-10-19] MEDS ORDERED: SODIUM CHLORIDE 0.9% 1,000 ML IV SCH (17:30)
--- NOTE | 2023-10-19 17:32 | P.CRDCN ---
History of Present Illness Consult date: 10/19/23 Chief complaint: Chest pain History of present illness: The patient is a pleasant 68-year-old female patient with coronary artery disease and prior stenting of the LAD in the year 2022 as well as hypertension and dyslipidemia and anxiety. She presented to the emergency department was 24 hours intermittent episodes of chest discomfort. Discomfort was dull kind of discomfort in the mid of the chest was no radiation. It was associated with d izziness and lightheadedness but no presyncope and no syncope and no sweating. She was seen in the emergency department where an EKG was performed and showed sinus mechanism was nonspecific changes but because she continues to have ongoing chest discomfort heart catheterization was advised. The heart catheterization revealed patent stent in the mid LAD with intermediate disease involving the mid to distal LAD and severe hazy lesion involving the ostial of the large first diagonal branch. Giving the anatomy and the location of the lesion I decided to treat the patient medically. Also she was found to have intermediate disease involving the ostial left circumflex coronary artery beach she likely had lack rupture involving the ostial diagonal branch. The procedure was performed from the right radial artery beach she was asymptomatic by the end of the procedure. She stated that she has been compliant with her medications that she was on dual antiplatelet therapy along with the intensity statin. The examination is remarkable for stable vital signs with regular rate and rhythm with soft systolic murmur at the right and left upper sternal border with diminished breathing sounds bilaterally and no lower extremity edema and she has soft nontender abdomen Assessment Acute non-ST elevation myocardial infarction oronary artery disease as described above Elevated left-sided filling pressure Hypertension and dyslipidemia Plan Continue the current medical regimen Continue dual antiplatelet therapy along with high intensity statin Consider restarting the patient back on heparin for additional 48 hours once we achieve good hemostasis Obtain an echocardiogram was Doppler Consider PCI of the diagonal if the patient remains symptomatic Past Medical History Past Medical History: Coronary Artery Disease (CAD), COPD, Diabetes Mellitus, Hypertension, Myocardial Infarction ([place]), Renal Disease Additional Past Medical History / Comment(s): anxiety History of Any Multi-Drug Resistant Organisms: None Reported Past Surgical History: Heart Catheterization With Stent Past Anesthesia/Blood Transfusion Reactions: No Reported Reaction Past Psychological History: Anxiety, Depression Smoking Status: Current every day smoker Past Alcohol Use History: Abuse, Daily, Heavy Past Drug Use History: None Reported Medications and Allergies Home Medications Medication Instructions Recorded Confirmed Type Aspirin 81 mg PO DAILY tab 04/17/23 10/19/23 Rx Atorvastatin [Lipitor] 80 mg PO DAILY 30 Days #30 tab 04/17/23 10/19/23 Rx Isosorbide Mononitrate ER [Imdur] 30 mg PO DAILY 30 Days #30 tab 04/17/23 10/19/23 Rx Prasugrel [Effient] 10 mg PO DAILY 30 Days #30 tab 04/17/23 10/19/23 Rx Fluticasone Propion/Salmeterol 1 puff INHALATION RT-BID 10/19/23 10/19/23 History [Advair 250-50 Diskus] Metoprolol Succinate [Toprol XL] 50 mg PO DAILY 10/19/23 10/19/23 History Allergies Allergy/AdvReac Type Severity Reaction Status Date / Time Sulfa (Sulfonamide Allergy increased Verified 10/19/23 15:25 Antibiotics) BP Physical Exam Vitals: Vital Signs Temp Pulse Pulse Resp BP Pulse Ox 10/19/23 16:21 98 18 138/78 99 10/19/23 13:21 84 10/19/23 13:16 97.7 F 86 18 146/119 98 Intake and Output 10/19/23 10/19/23 10/19/23 06:59 14:59 22:59 Intake Total 50 Balance 50 Intake: IV 50 Other: Weight 39.825 kg Results 10/19/23 14:27 10/19/23 14:27 Cardiac Enzymes 10/19/23 10/19/23 Range/Units 14:27 14:27 AST 36 (14-36) U/L Troponin I 0.811 H* (0.000-0.034) ng/mL Coagulation 10/19/23 Range/Units 14:27 PT 10.8 (10.0-12.5) sec APTT 20.6 L (22.0-30.0) sec CBC 10/19/23 Range/Units 14:27 WBC 8.8 (3.8-10.6) k/uL RBC 3.81 (3.80-5.40) m/uL Hgb 12.6 (11.4-16.0) gm/dL Hct 37.7 (34.0-46.0) % Plt Count 245 (150-450) k/uL Comprehensive Metabolic Panel 10/19/23 Range/Units 14:27 Sodium 135 L (137-145) mmol/L Potassium 4.7 (3.5-5.1) mmol/L Chloride 100 (98-107) mmol/L Carbon Dioxide 21 L (22-30) mmol/L BUN 15 (7-17) mg/dL Creatinine 0.67 (0.52-1.04) mg/dL Glucose 129 H (74-99) mg/dL Calcium 9.2 (8.4-10.2) mg/dL AST 36 (14-36) U/L ALT 20 (4-34) U/L Alkaline Phosphatase 80 (38-126) U/L Total Protein 7.5 (6.3-8.2) g/dL Albumin 4.4 (3.5-5.0) g/dL Current Medications Generic Name Dose Route Start Last Admin Trade Name Freq PRN Reason Stop Dose Admin Acetaminophen 650 mg 10/19/23 16:54 Acetaminophen Tab 325 Mg Tab PO Q6HR PRN Mild Pain or Fever > 100.5 Alprazolam 0.25 mg 10/19/23 16:54 Alprazolam 0.25 Mg Tab PO Q6HR PRN Anxiety Aspirin 81 mg 10/20/23 09:00 Aspirin 81 Mg PO DAILY [facility] Atorvastatin Calcium 80 mg 10/19/23 17:00 Atorvastatin 80 Mg Tab PO DAILY [facility] Budesonide/Formoterol Fumarate 2 puff 10/19/23 20:00 Symbicort 80-4.5 Mcg Inhaler INHALATION RT-BID [facility] Calcium Carbonate/Glycine 1,000 mg 10/19/23 16:54 Calcium Carbonate 500 Mg Chewable PO Q4HR PRN Dyspepsia Heparin Sodium (Porcine) 0 unit 10/19/23 15:30 Heparin Sodium 1,000 Un/Ml (10ml Vl) IV PER PROTOCOL PRN Low PTT Protocol Heparin Sodium/Sodium Chloride 250 mls @ 4.779 mls/hr 10/19/23 15:30 10/19/23 16:20 25,000 unit/ Sodium Chloride IV Not Given .Q24H [facility] Protocol 12 UNITS/KG/HR Nitroglycerin/Dextrose 50 mg/ 250 mls @ 1.5 mls/hr 10/19/23 15:42 10/19/23 16:20 IV Solution IV 10/20/23 15:41 Not Given .Q24H ONE 5 MCG/MIN Sodium Chloride 1,000 mls @ 75 mls/hr 10/19/23 17:30 Saline 0.9% IV 10/19/23 22:31 .[id number] [facility] Isosorbide Mononitrate 30 mg 10/20/23 09:00 Isosorbide Mononitrate Er 30 Mg Tab.Er.24h PO DAILY [facility] Lactulose 20 gm 10/19/23 16:54 Lactulose 20 Gm/30 Ml Cup PO DAILY PRN Constipation Metoprolol Succinate 50 mg 10/20/23 09:00 Metoprolol Succinate (Er) 50 Mg Tab.Er.24h PO DAILY [facility] Miscellaneous Information 1 each 10/19/23 17:23 Rx Info: Iv Contrast Was Given 1 Each Misc MISCELLANE 10/21/23 17:24 DAILY PRN Per Protocol Naloxone HCl 0.2 mg 10/19/23 16:54 Naloxone 0.4 Mg/Ml 1 Ml Vial IV Q2M PRN Opioid Reversal Nicotine 1 patch 10/19/23 17:00 Nicotine 21mg/24hr Patch TRANSDERM DAILY [facility] Nitroglycerin 0.4 mg 10/19/23 15:32 Nitroglycerin Sl Tabs 0.4 Mg Tab SUBLINGUAL Q5M PRN Chest Pain Ondansetron HCl 4 mg 10/19/23 16:54 Ondansetron 4 Mg/2 Ml Vial IVP Q8HR PRN Nausea And Vomiting Prasugrel 10 mg 10/19/23 17:00 Prasugrel 10 Mg Tab PO DAILY [facility] Psyllium Hydrophilic Mucilloid 6 gm 10/19/23 17:00 Psyllium Husk 100% 6 Gm Packet PO DAILY [facility] Temazepam 15 mg 10/19/23 16:54 Temazepam 15 Mg Cap PO HS PRN Insomnia Intake and Output 10/19/23 10/19/23 10/19/23 06:59 14:59 22:59 Intake Total 50 Balance 50 Intake: IV 50 Other: Weight 39.825 kg Patient Weight 10/20/23 06:59 Weight 39.825 kg 10/19/23 14:27 10/19/23 14:27
[2023-10-19] MEDS: PSYLLIUM HUSK 100% 6 GM PACKET PO SCH (18:33)
[2023-10-19] MEDS: PRASUGREL 10 MG TAB PO SCH (18:44)
[2023-10-19] MEDS: ATORVASTATIN 80 MG TAB PO SCH (18:44)
[2023-10-19] MEDS: NICOTINE 21MG/24HR PATCH TRANSDERM SCH (18:44)
[2023-10-19] MEDS: SYMBICORT 80-4.5 MCG INHALER INHALATION SCH (21:04)
[2023-10-20 08:11] LABS: Basophils % (A) 0 %; Eosinophils % (A) 0 %; HCT 43.8 % (34.0-46.0); HGB 14.6 gm/dL (11.4-16.0); Lymphocytes # (A) 1.9 k/uL (1.0-4.8); Lymphocytes % (A) 20 %; MCH 33.3 pg (25.0-35.0); MCHC 33.3 g/dL (31.0-37.0); Mean Platelet Volume 6.8; Monocytes # (A) 0.6 k/uL (0-1.0); Monocytes % (A) 6 %; Neutrophils # (A) 6.7 k/uL (1.3-7.7); Neutrophils % (A) 71 %; Platelet Count 277 k/uL (150-450); RBC 4.38 m/uL (3.80-5.40); RDW 12.9 % (11.5-15.5); WBC 9.4 k/uL (3.8-10.6)
[2023-10-20 08:14] LABS: Prothrombin Time 11.2 sec (10.0-12.5)
[2023-10-20] MEDS: SYMBICORT 80-4.5 MCG INHALER INHALATION SCH ×2 (08:21→21:03)
[2023-10-20] MEDS: PRASUGREL 10 MG TAB PO SCH (08:32)
[2023-10-20] MEDS: METOPROLOL SUCCINATE (ER) 50 MG TAB.ER.24H PO SCH (08:32)
[2023-10-20] MEDS: ASPIRIN 81 MG PO SCH (08:32)
[2023-10-20] MEDS: NITROGLYCERIN OINT 1 INCH/GM PACKET TOPICAL SCH ×3 (08:32→22:48)
[2023-10-20] MEDS: ISOSORBIDE MONONITRATE ER 30 MG TAB.ER.24H PO SCH (08:32)
[2023-10-20] MEDS: ATORVASTATIN 80 MG TAB PO SCH (08:32)
[2023-10-20] MEDS: PSYLLIUM HUSK 100% 6 GM PACKET PO SCH (08:32)
[2023-10-20] MEDS: HEPARIN SOD,PORK IN 0.45% NACL 25,000 UNIT in 0.45% NACL 1 250ML.BAG IV SCH (08:34)
[2023-10-20] MEDS: NICOTINE 21MG/24HR PATCH TRANSDERM SCH (08:42)
[2023-10-20] MEDS: RANOLAZINE 500 MG TAB.ER.12H PO SCH ×2 (08:51→20:13)
[2023-10-20] MEDS: FUROSEMIDE 40 MG TAB PO SCH (08:51)
[2023-10-20] MEDS: PANTOPRAZOLE 40 MG TABLET PO SCH (08:51)
[2023-10-20] MEDS ORDERED: ASPIRIN 325 MG TAB PO SCH (09:00)
[2023-10-20 11:11] LABS: Chol/HDL Ratio 2.58 Ratio; LDL Cholesterol,Calculated 87.5 mg/dL (0.0-131.0)
--- NOTE | 2023-10-20 11:25 | CA ---
Transthoracic Echo Report Name: Jessie Tobias Age: 58 Gender: F : 1965 Exam Date: 10/20/2023 08:14 Exam Location: [facility] Ht (in): 59 Wt (lb): 87 Ordering Physician: Douglas Vargas MD ([id number]) Attending/Referring Phys: Early Childhood Education Instructor Jovana Mcgarry RDCS Procedure CPT: Indications: ACS Cardiac Hx: Technical Quality: Good Contrast 1: Total Dose (mL): Contrast 2: Total Dose (mL): MEASUREMENTS (Male / Female) Normal Values 2D ECHO LV Diastolic Diameter PLAX 4.0 cm 4.2 - 5.9 / 3.9 - 5.3 cm LV Systolic Diameter PLAX 3.2 cm IVS Diastolic Thickness 1.0 cm 0.6 - 1.0 / 0.6 - 0.9 cm LVPW Diastolic Thickness 1.0 cm 0.6 - 1.0 / 0.6 - 0.9 cm LV Relative Wall Thickness 0.5 RV Internal Dim ED PLAX 3.4 cm LA Systolic Diameter LX 3.2 cm 3.0 - 4.0 / 2.7 - 3.8 cm LV Diastolic Volume MOD BP 124.2 cm??? 67 - 155 / 56 - 104 cm??? LV Systolic Volume MOD BP 117.7 cm??? 22 - 58 / 19 - 49 cm??? LV Ejection Fraction MOD BP 5.3 % >= 55 % LV Cardiac Index MOD BP 574.0 cm???/min???m??? LV Diastolic Volume MOD 4C 114.2 cm??? LV Systolic Volume MOD 4C 100.4 cm??? LV Ejection Fraction MOD 4C 12.1 % LV Cardiac Index MOD 4C 1212.3 cm???/min???m??? LV Diastolic Length 4C 7.6 cm LV Systolic Length 4C 7.5 cm LV Diastolic Volume MOD 2C 134.7 cm??? LV Systolic Volume MOD 2C 129.9 cm??? LV Ejection Fraction MOD 2C 3.5 % LV Cardiac Index MOD 2C 418.3 cm???/min???m??? LV Diastolic Length 2C 7.6 cm LV Systolic Length 2C 8.0 cm LA Volume 74.4 cm??? 18 - 58 / 22 - 52 cm??? LA Volume Index 58.3 cm???/m??? 16 - 28 cm???/m??? M-MODE Aortic Root Diameter MM 3.2 cm MV E Point Septal Separation 1.3 cm AV Cusp Separation MM 1.8 cm DOPPLER AV Peak Velocity 100.1 cm/s AV Peak Gradient 4.0 mmHg MV Area PHT 11.1 cm??? MV Deceleration Time 81.7 ms MV E' Velocity 3.7 cm/s TR Peak Velocity 347.1 cm/s TR Peak Gradient 48.2 mmHg Right Ventricular Systolic Press 52.3 mmHg FINDINGS Left Ventricle Left ventricular ejection fraction is estimated at 15 %. Left ventricular cavity size normal. Mildly increased septal wall thickness. Mildly increased posterior wall thickness. Moderately increased left ventricular diastolic volume. Severely increased left ventricular systolic volume. Severely decreased left ventricular ejection fraction. Right Ventricle Mild right ventricular dilatation. Moderate pulmonary hypertension. Right ventricular systolic pressure estimated at 52 mm hg. Right Atrium Normal right atrial size. Left Atrium Severely increased left atrial volume. Mildly increased left atrial area. Mitral Valve Structurally normal mitral valve. Mild mitral regurgitation. Aortic Valve Aortic valve not well visualized. No aortic valve stenosis or regurgitation. Tricuspid Valve Structurally normal tricuspid valve. [id number] tricuspid regurgitation. Pulmonic Valve Pulmonic valve not well visualized. No pulmonic regurgitation. Pericardium No pericardial effusion. Aorta Normal size aortic root and proximal ascending aorta. CONCLUSIONS Severe LV systolic dysfunction Moderate pulmonary hypertension with right ventricular dilation Severe left atrial enlargement Moderate to severe tricuspid regurgitation Previewed by: Dr. Kaiden Younger MD (Electronically Signed) Final Date: 20 October 2023 11:25
--- NOTE | 2023-10-20 12:47 | P.PN ---
Subjective HISTORY OF PRESENT ILLNESS: The patient is a pleasant 68-year-old female patient with coronary artery disease and prior stenting of the LAD in the year 2022 as well as hypertension and dyslipidemia and anxiety. She presented to the emergency department was 24 hours intermittent episodes of chest discomfort. Discomfort was dull kind of discomfort in the mid of the chest was no radiation. It was associated with dizziness and lightheadedness but no presyncope and no syncope and no sweating. She was seen in the emergency department where an EKG was performed and showed sinus mechanism was nonspecific changes but because she continues to have ongoing chest discomfort heart catheterization was advised. The heart ca theterization revealed patent stent in the mid LAD with intermediate disease involving the mid to distal LAD and severe hazy lesion involving the ostial of the large first diagonal branch. Giving the anatomy and the location of the lesion I decided to treat the patient medically. Also she was found to have intermediate disease involving the ostial left circumflex coronary artery beach she likely had lack rupture involving the ostial diagonal branch. The procedure was performed from the right radial artery beach she was asymptomatic by the end of the procedure. She stated that she has been compliant with her medications that she was on dual antiplatelet therapy along with the intensity statin. The examination is remarkable for stable vital signs with regular rate and rhythm with soft systolic murmur at the right and left upper sternal border with diminished breathing sounds bilaterally and no lower extremity edema and she has soft nontender abdomen 10/20/2023 Patient examined this morning at the bedside. Patient currently denies shortness of breath. She reports chest pain this morning that feels like a squeezing sensation in the upper left side of her chest with radiation to her arm. She also reports feeling nauseated. EKG was completed with no acute changes. Echocardiogram completed revealing ejection fraction 10-15%, moderate pulmonary hypertension, and moderate to severe tricuspid regurgitation with mild mitral regurgitation. PHYSICAL EXAM: VITAL SIGNS: Reviewed. GENERAL: Well-developed in no acute distress. NECK: Supple. No JVD or thyromegaly LUNGS: Respirations even and unlabored. Lungs essentially clear to auscultation bilaterally. HEART: Regular rate and rhythm. S1 and S2 heard. Systolic murmur noted. EXTREMITIES: Normal range of motion. No clubbing or cyanosis. Peripheral pulses intact. No lower extremity edema ASSESSMENT: Non-STEMI Plaque rupture and thrombus formation of first diagonal branch Elevated left-sided filling pressures Coronary artery disease with previous stenting of the mid LAD Ischemic cardiomyopathy Hypertension Hyperlipidemia Nicotine dependence PLAN: Continue dual antiplatelet therapy with aspirin and Effient Resume heparin drip for an additional 24-48 hours Add Nitropaste Add lisinopril Add Protonix Add oral Lasix 40 mg daily Add Ranexa If patient continues to have chest pain despite changes in medications, will require repeat cardiac catheterization Further recommendations pending patient's course Nurse practitioner note has been reviewed by physician. Signing provider agrees with the documented findings, assessment, and plan of care. Objective - Vital Signs Vital signs: Vital Signs Temp 97.8 F 10/20/23 08:00 Pulse 113 H 10/20/23 08:00 Resp 17 10/20/23 08:00 BP 127/86 10/20/23 08:00 Pulse Ox 95 10/20/23 08:00 FiO2 Intake & Output 10/19/23 10/20/23 10/20/23 18:59 06:59 18:59 Intake Total 50 Balance 50 Weight 39.825 kg Intake: IV 50 Other: Voiding Method Toilet Toilet # Voids 3 - Labs CBC & Chem 7: 10/20/23 07:50 10/19/23 14:27 Labs: Abnormal Lab Results - Last 24 Hours (Table) 10/19/23 10/19/23 10/19/23 Range/Units 14:27 14:27 14:27 Lymphocytes # 0.9 L (1.0-4.8) k/uL APTT 20.6 L (22.0-30.0) sec Sodium 135 L (137-145) mmol/L Carbon Dioxide 21 L (22-30) mmol/L Glucose 129 H (74-99) mg/dL Troponin I (0.000-0.034) ng/mL HDL Cholesterol (40.00-60.00) mg/dL 10/19/23 10/19/23 10/19/23 Range/Units 14:27 17:35 20:30 Lymphocytes # (1.0-4.8) k/uL APTT (22.0-30.0) sec Sodium (137-145) mmol/L Carbon Dioxide (22-30) mmol/L Glucose (74-99) mg/dL Troponin I 0.811 H* 11.900 H* 25.800 H* (0.000-0.034) ng/mL HDL Cholesterol (40.00-60.00) mg/dL 10/20/23 Range/Units 07:50 Lymphocytes # (1.0-4.8) k/uL APTT (22.0-30.0) sec Sodium (137-145) mmol/L Carbon Dioxide (22-30) mmol/L Glucose (74-99) mg/dL Troponin I (0.000-0.034) ng/mL HDL Cholesterol 70.90 H (40.00-60.00) mg/dL
--- NOTE | 2023-10-20 17:01 | P.PN ---
Progress Note - Text Progress Note Date: 10/20/23 Chief Complaint: Chest pain This is a 58-year-old patient of follows with Dr. Mcintyre. Chronic stable medical conditions include COPD, hypertension, hyperlipidemia, chronic kidney disease, anxiety. In April 2023 patient had a non-ST elevation OH had a cardiac catheterization with stent to the mid LAD by Dr. Vargas. Patient decided not to follow-up as she was afraid. Also is due for a stress test. Patient been experienced chest pain on walking a few steps. Normally stops. Had decided not to see a vp foundation. This afternoon patient started having pain going across her chest. Going on the left arm. Associated with dizziness lightheadedness perspiration: Clammy. Also vomited. Pain lasts for at least 4 hours before she decided to come in. Still having active chest pain. Initial troponin is 0.8. Ruled in for acute non-Q-wave [place]. Patient has continued to smoke. 10/20/2023: Patient underwent cardiac catheterization by Dr. Vargas yesterday. 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 Stent could not be placed. Medical management. On IV heparin. Patient still having chest pressure this morning. Uncomfortable. Imdur and Ranexa added by cardiology Active Medications Acetaminophen (Acetaminophen Tab 325 Mg Tab) 650 mg PO Q6HR PRN PRN Reason: Mild Pain or Fever > 100.5 Alprazolam (Alprazolam 0.25 Mg Tab) 0.25 mg PO Q6HR PRN PRN Reason: Anxiety Aspirin (Aspirin 81 Mg) 81 mg PO DAILY [facility] Last Admin: 10/20/23 08:32 Dose: 81 mg Atorvastatin Calcium (Atorvastatin 80 Mg Tab) 80 mg PO DAILY [facility] Last Admin: 10/20/23 08:32 Dose: 80 mg Budesonide/Formoterol Fumarate (Symbicort 80-4.5 Mcg Inhaler) 2 puff INHALATION RT-BID [facility] Last Admin: 10/20/23 08:21 Dose: Not Given Calcium Carbonate/Glycine (Calcium Carbonate 500 Mg Chewable) 1,000 mg PO Q4HR PRN PRN Reason: Dyspepsia Furosemide (Furosemide 40 Mg Tab) 40 mg PO DAILY [facility] Last Admin: 10/20/23 08:51 Dose: 40 mg Heparin Sodium (Porcine) (Heparin Sodium 1,000 Un/Ml (10ml Vl)) 0 unit IV PER PROTOCOL PRN; Protocol PRN Reason: Low PTT Heparin Sodium/Sodium Chloride (25,000 unit/ Sodium Chloride) 250 mls @ 4.779 mls/hr IV .Q24H [facility]; Protocol Last Titration: 10/20/23 15:29 Dose: 15 units/kg/hr, 5.974 mls/hr Isosorbide Mononitrate (Isosorbide Mononitrate Er 30 Mg Tab.Er.24h) 30 mg PO DAILY [facility] Last Admin: 10/20/23 08:32 Dose: 30 mg Lactulose (Lactulose 20 Gm/30 Ml Cup) 20 gm PO DAILY PRN PRN Reason: Constipation Lisinopril (Lisinopril 10 Mg Tab) 10 mg PO DAILY [facility] Metoprolol Succinate (Metoprolol Succinate (Er) 50 Mg Tab.Er.24h) 50 mg PO DAILY [facility] Last Admin: 10/20/23 08:32 Dose: 50 mg Miscellaneous Information (Rx Info: Iv Contrast Was Given 1 Each Misc) 1 each MISCELLANE DAILY PRN PRN Reason: Per Protocol Stop: 10/21/23 17:24 Naloxone HCl (Naloxone 0.4 Mg/Ml 1 Ml Vial) 0.2 mg IV Q2M PRN PRN Reason: Opioid Reversal Nicotine (Nicotine 21mg/24hr Patch) 1 patch TRANSDERM DAILY [facility] Last Admin: 10/20/23 08:42 Dose: Not Given Nitroglycerin (Nitroglycerin Sl Tabs 0.4 Mg Tab) 0.4 mg SUBLINGUAL Q5M PRN PRN Reason: Chest Pain Nitroglycerin (Nitroglycerin Oint 1 Inch/Gm Packet) 0.5 inch TOPICAL Q8HR [facility] Last Admin: 10/20/23 15:34 Dose: 0.5 inch Ondansetron HCl (Ondansetron 4 Mg/2 Ml Vial) 4 mg IVP Q8HR PRN PRN Reason: Nausea And Vomiting Pantoprazole Sodium (Pantoprazole 40 Mg Tablet) 40 mg PO AC-BRKFST [facility] Last Admin: 10/20/23 08:51 Dose: 40 mg Prasugrel (Prasugrel 10 Mg Tab) 10 mg PO DAILY [facility] Last Admin: 10/20/23 08:32 Dose: 10 mg Psyllium Hydrophilic Mucilloid (Psyllium Husk 100% 6 Gm Packet) 6 gm PO DAILY [facility] Last Admin: 10/20/23 08:32 Dose: 6 gm Ranolazine (Ranolazine 500 Mg Tab.Er.12h) 500 mg PO Q12HR [facility] Last Admin: 10/20/23 08:51 Dose: 500 mg Temazepam (Temazepam 15 Mg Cap) 15 mg PO HS PRN PRN Reason: Insomnia Social history: Lives alone. Averaged a pack a day for 40 years stopped cut back about 6 months ago. Was drinking heavy alcohol them sometime ago. 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 Physical examination: VITAL SIGNS: 97.8, 105, 17, 124/57, 95% room air GENERAL: He is on bed, appears anxious but uncomfortable EYES: Pupils equal. Conjunctiva normal. HEENT: External appearance of nose and ears normal, oral cavity grossly normal. NECK: JVD not raised; masses not palpable. HEART: First and second heart sounds are normal; no edema. LUNGS: Respiratory rate increased, decreased breath sounds. ABDOMEN: Soft, nontender, liver spleen not palpable, no masses palpable. PSYCH: Alert and oriented x3; mood and affect anxiousl. MUSCULOSKELETAL:No Clubbing/cyanosis;muscles-grossly intact. Loss of subcu interstitial muscle mass. Prominent bones. Evidence of OA. INVESTIGATIONS, reviewed in the clinical context: 10/20/2023: White count 9.4 hemoglobin 14.6 platelets 277 LDL 87 10/19/2023: White count 8.8 hemoglobin 12.6 platelets 245 sodium 135 potassium 4.7 creatinine 0.67 Troponin I 0.811 proBNP 7140 EKG tracing personally reviewed by me-sinus rhythm. p pulmonale. Flipped T waves in anterolateral leads. Chest x-ray film personally reviewed by me-hyperinflation Assessment and plan: -Acute non-Q-wave [place]. Patient had chest pain for several hours still currently present. Has been having symptoms for quite a few days. Had decided not to follow-up with his vp foundation afraid about the consequences including .: Uncontrolled Aspirin. Beta perla. IV heparin. Imdur and Ranexa added today Cardiac catheterization: Severe ostial lesion involving the first diagonal branch likely representing blackstrap children thrombus formation. Unable to be stented.: 4 medical management -Post angina pain -CAD with stent to mid LAD in April [address] Vargas Aspirin. Effient. Toprol-XL. Lipitor. -Chronic bladder dysfunction with urinary hesitancy and frequency -COPD in a current smoker Advair -Chronic nicotine dependence, cigarette smoker Nicotine patch. Patient counseled -Essential hypertension Toprol-XL -Hyperlipidemia Lipitor -Primary osteoarthritis multiple joints bilaterally Tylenol as needed -Chronic constipation Metamucil -Severe protein calorie malnutrition Ensure. Consult dietitian. -Full code The patient. Follow with cardiology. Past Medical History Past Medical History: Coronary Artery Disease (CAD), COPD, Diabetes Mellitus, Hypertension, Myocardial Infarction ([place]), Renal Disease Additional Past Medical History / Comment(s): anxiety History of Any Multi-Drug Resistant Organisms: None Reported Past Surgical History: Heart Catheterization With Stent Past Anesthesia/Blood Transfusion Reactions: No Reported Reaction Past Psychological History: Anxiety, Depression Smoking Status: Current every day smoker Past Alcohol Use History: Abuse, Daily, Heavy Past Drug Use History: None Reported
[2023-10-21] MEDS: PANTOPRAZOLE 40 MG TABLET PO SCH (06:32)
[2023-10-21] MEDS: SYMBICORT 80-4.5 MCG INHALER INHALATION SCH ×2 (08:18→21:16)
[2023-10-21] MEDS ORDERED: lisinopriL 10 MG TAB PO SCH (09:00)
[2023-10-21] MEDS: RANOLAZINE 500 MG TAB.ER.12H PO SCH ×2 (09:06→21:08)
[2023-10-21] MEDS: ATORVASTATIN 80 MG TAB PO SCH (09:06)
[2023-10-21] MEDS: ISOSORBIDE MONONITRATE ER 30 MG TAB.ER.24H PO SCH (09:06)
[2023-10-21] MEDS: ASPIRIN 81 MG PO SCH (09:06)
[2023-10-21] MEDS: FUROSEMIDE 40 MG TAB PO SCH (09:06)
[2023-10-21] MEDS: PRASUGREL 10 MG TAB PO SCH (09:07)
[2023-10-21] MEDS: NICOTINE 21MG/24HR PATCH TRANSDERM SCH (09:07)
[2023-10-21] MEDS: METOPROLOL SUCCINATE (ER) 50 MG TAB.ER.24H PO SCH (09:07)
[2023-10-21] MEDS: PSYLLIUM HUSK 100% 6 GM PACKET PO SCH (09:08)
[2023-10-21] MEDS: NITROGLYCERIN OINT 1 INCH/GM PACKET TOPICAL SCH (09:46)
[2023-10-21 09:51] VITALS: BMI 17.7
--- NOTE | 2023-10-21 12:22 | P.PN ---
Progress Note - Text Progress Note Date: 10/21/23 Chief Complaint: Chest pain This is a 58-year-old patient of follows with Dr. Mcintyre. Chronic stable medical conditions include COPD, hypertension, hyperlipidemia, chronic kidney disease, anxiety. In April 2023 patient had a non-ST elevation MD had a cardiac catheterization with stent to the mid LAD by Dr. Vargas. Patient decided not to follow-up as she was afraid. Also is due for a stress test. Patient been experienced chest pain on walking a few steps. Normally stops. Had decided not to see a fish smoker. This afternoon patient started having pain going across her chest. Going on the left arm. Associated with dizziness lightheadedness perspiration: Clammy. Also vomited. Pain lasts for at least 4 hours before she decided to come in. Still having active chest pain. Initial troponin is 0.8. Ruled in for acute non-Q-wave MD. Patient has continued to smoke. 10/20/2023: Patient underwent cardiac catheterization by Dr. Vargas yesterday. 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 Stent could not be placed. Medical management. On IV heparin. Patient still having chest pressure this morning. Uncomfortable. Imdur and Ranexa added by cardiology 10/21/2023: Patient feeling better today. Remains on IV heparin. Nitro paste. His Zestril was started today. Patient eating a bit better. For medical management. Per cardiology. Active Medications Acetaminophen (Acetaminophen Tab 325 Mg Tab) 650 mg PO Q6HR PRN PRN Reason: Mild Pain or Fever > 100.5 Alprazolam (Alprazolam 0.25 Mg Tab) 0.25 mg PO Q6HR PRN PRN Reason: Anxiety Aspirin (Aspirin 81 Mg) 81 mg PO DAILY [facility] Last Admin: 10/21/23 09:06 Dose: 81 mg Atorvastatin Calcium (Atorvastatin 80 Mg Tab) 80 mg PO DAILY [facility] Last Admin: 10/21/23 09:06 Dose: 80 mg Budesonide/Formoterol Fumarate (Symbicort 80-4.5 Mcg Inhaler) 2 puff INHALATION RT-BID [facility] Last Admin: 10/21/23 08:18 Dose: 2 puff Calcium Carbonate/Glycine (Calcium Carbonate 500 Mg Chewable) 1,000 mg PO Q4HR PRN PRN Reason: Dyspepsia Furosemide (Furosemide 40 Mg Tab) 40 mg PO DAILY [facility] Last Admin: 10/21/23 09:06 Dose: 40 mg Heparin Sodium (Porcine) (Heparin Sodium 1,000 Un/Ml (10ml Vl)) 0 unit IV PER PROTOCOL PRN; Protocol PRN Reason: Low PTT Heparin Sodium/Sodium Chloride (25,000 unit/ Sodium Chloride) 250 mls @ 4.779 mls/hr IV .Q24H [facility]; Protocol Last Titration: 10/21/23 09:06 Dose: 19 units/kg/hr, 7.567 mls/hr Isosorbide Mononitrate (Isosorbide Mononitrate Er 30 Mg Tab.Er.24h) 30 mg PO DAILY [facility] Last Admin: 10/21/23 09:06 Dose: 30 mg Lactulose (Lactulose 20 Gm/30 Ml Cup) 20 gm PO DAILY PRN PRN Reason: Constipation Lisinopril (Lisinopril 10 Mg Tab) 10 mg PO DAILY [facility] Last Admin: 10/21/23 09:06 Dose: 10 mg Metoprolol Succinate (Metoprolol Succinate (Er) 50 Mg Tab.Er.24h) 50 mg PO DAILY [facility] Last Admin: 10/21/23 09:07 Dose: 50 mg Miscellaneous Information (Rx Info: Iv Contrast Was Given 1 Each Misc) 1 each MISCELLANE DAILY PRN PRN Reason: Per Protocol Stop: 10/21/23 17:24 Naloxone HCl (Naloxone 0.4 Mg/Ml 1 Ml Vial) 0.2 mg IV Q2M PRN PRN Reason: Opioid Reversal Nicotine (Nicotine 21mg/24hr Patch) 1 patch TRANSDERM DAILY [facility] Last Admin: 10/21/23 09:07 Dose: Not Given Nitroglycerin (Nitroglycerin Sl Tabs 0.4 Mg Tab) 0.4 mg SUBLINGUAL Q5M PRN PRN Reason: Chest Pain Nitroglycerin (Nitroglycerin Oint 1 Inch/Gm Packet) 0.5 inch TOPICAL Q8HR [facility] Last Admin: 10/21/23 09:46 Dose: Not Given Ondansetron HCl (Ondansetron 4 Mg/2 Ml Vial) 4 mg IVP Q8HR PRN PRN Reason: Nausea And Vomiting Pantoprazole Sodium (Pantoprazole 40 Mg Tablet) 40 mg PO AC-BRKFST [facility] Last Admin: 10/21/23 06:32 Dose: 40 mg Prasugrel (Prasugrel 10 Mg Tab) 10 mg PO DAILY [facility] Last Admin: 10/21/23 09:07 Dose: 10 mg Psyllium Hydrophilic Mucilloid (Psyllium Husk 100% 6 Gm Packet) 6 gm PO DAILY [facility] Last Admin: 10/21/23 09:08 Dose: 6 gm Ranolazine (Ranolazine 500 Mg Tab.Er.12h) 500 mg PO Q12HR [facility] Last Admin: 10/21/23 09:06 Dose: 500 mg Temazepam (Temazepam 15 Mg Cap) 15 mg PO HS PRN PRN Reason: Insomnia Social history: Lives alone. Averaged a pack a day for 40 years stopped cut back about 6 months ago. Was drinking heavy alcohol them sometime ago. 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 Physical examination: VITAL SIGNS: 97.5, 84, 18, 99/69, 96% room air GENERAL: Reclining in bed EYES: Pupils equal. Conjunctiva normal. HEENT: External appearance of nose and ears normal, oral cavity grossly normal. NECK: JVD not raised; masses not palpable. HEART: First and second heart sounds are normal; no edema. LUNGS: Respiratory rate normal, decreased breath sounds. ABDOMEN: Soft, nontender, liver spleen not palpable, no masses palpable. PSYCH: Alert and oriented x3; mood and affect anxiousl. MUSCULOSKELETAL:No Clubbing/cyanosis;muscles-grossly intact. Loss of subcu interstitial muscle mass. Prominent bones. Evidence of OA. INVESTIGATIONS, reviewed in the clinical context: 10/20/2023: White count 9.4 hemoglobin 14.6 platelets 277 LDL 87 10/19/2023: White count 8.8 hemoglobin 12.6 platelets 245 sodium 135 potassium 4.7 creatinine 0.67 Troponin I 0.811, 25.8 proBNP 7140 EKG tracing personally reviewed by me-sinus rhythm. p pulmonale. Flipped T waves in anterolateral leads. Chest x-ray film personally reviewed by me-hyperinflation Assessment and plan: -Acute non-Q-wave MD. Patient had chest pain for several hours still currently present. Has been having symptoms for quite a few days. Had decided not to follow-up with his fish smoker afraid about the consequences including .: Uncontrolled Aspirin. Beta perla. IV heparin. Imdur and Ranexa added today Cardiac catheterization: Severe ostial lesion involving the first diagonal branch likely representing blackstrap children thrombus formation. Unable to be stented.: 4 medical management -IV heparin monitoring Follow PTT -Post angina pain -CAD with stent to mid LAD in April [address] Vargas Aspirin. Effient. Toprol-XL. Lipitor. -Chronic bladder dysfunction with urinary hesitancy and frequency -COPD in a current smoker Advair -Chronic nicotine dependence, cigarette smoker Nicotine patch. Patient counseled -Essential hypertension Toprol-XL -Hyperlipidemia Lipitor -Primary osteoarthritis multiple joints bilaterally Tylenol as needed -Chronic constipation Metamucil -Severe protein calorie malnutrition Ensure. Consult dietitian. -Full code Discussed with patient. Increase activity as tolerated. Follow with cardiology. Past Medical History Past Medical History: Coronary Artery Disease (CAD), COPD, Diabetes Mellitus, Hypertension, Myocardial Infarction ([place]), Renal Disease Additional Past Medical History / Comment(s): anxiety History of Any Multi-Drug Resistant Organisms: None Reported Past Surgical History: Heart Catheterization With Stent Past Anesthesia/Blood Transfusion Reactions: No Reported Reaction Past Psychological History: Anxiety, Depression Smoking Status: Current every day smoker Past Alcohol Use History: Abuse, Daily, Heavy Past Drug Use History: None Reported
--- NOTE | 2023-10-21 13:28 | P.PN ---
Subjective HISTORY OF PRESENT ILLNESS: The patient is a pleasant 68-year-old female patient with coronary artery disease and prior stenting of the LAD in the year 2022 as well as hypertension and dyslipidemia and anxiety. She presented to the emergency department was 24 hours intermittent episodes of chest discomfort. Discomfort was dull kind of discomfort in the mid of the chest was no radiation. It was associated with dizziness and lightheadedness but no presyncope and no syncope and no sweating. She was seen in the emergency department where an EKG was performed and showed sinus mechanism was nonspecific changes but because she continues to have ongoing chest discomfort heart catheterization was advised. The heart ca theterization revealed patent stent in the mid LAD with intermediate disease involving the mid to distal LAD and severe hazy lesion involving the ostial of the large first diagonal branch. Giving the anatomy and the location of the lesion I decided to treat the patient medically. Also she was found to have intermediate disease involving the ostial left circumflex coronary artery beach she likely had lack rupture involving the ostial diagonal branch. The procedure was performed from the right radial artery beach she was asymptomatic by the end of the procedure. She stated that she has been compliant with her medications that she was on dual antiplatelet therapy along with the intensity statin. The examination is remarkable for stable vital signs with regular rate and rhythm with soft systolic murmur at the right and left upper sternal border with diminished breathing sounds bilaterally and no lower extremity edema and she has soft nontender abdomen 10/20/2023 Patient examined this morning at the bedside. Patient currently denies shortness of breath. She reports chest pain this morning that feels like a squeezing sensation in the upper left side of her chest with radiation to her arm. She also reports feeling nauseated. EKG was completed with no acute changes. Echocardiogram completed revealing ejection fraction 10-15%, moderate pulmonary hypertension, and moderate to severe tricuspid regurgitation with mild mitral regurgitation. 10/21/2023 Patient examined this morning at the bedside. Patient currently denies chest pain or pressure. She denies shortness of breath. She does report some chest discomfort with deep inspiration. She remains on IV heparin. Echocardiogram completed revealing ejection fraction 10-15%. PHYSICAL EXAM: VITAL SIGNS: Reviewed. GENERAL: Well-developed in no acute distress. NECK: Supple. No JVD or thyromegaly LUNGS: Respirations even and unlabored. Lungs essentially clear to auscultation bilaterally. HEART: Regular rate and rhythm. S1 and S2 heard. Systolic murmur noted. EXTREMITIES: Normal range of motion. No clubbing or cyanosis. Peripheral pulses intact. No lower extremity edema ASSESSMENT: Non-STEMI Plaque rupture and thrombus formation of first diagonal branch Elevated left-sided filling pressures Coronary artery disease with previous stenting of the mid LAD Ischemic cardiomyopathy, EF 10-15% Hypertension Hyperlipidemia Nicotine dependence PLAN: Continue dual antiplatelet therapy with aspirin and Effient Continue additional cardiac medications Discontinue nitro paste Continue IV heparin for an additional 24 hours. Will discontinue tomorrow Possible discharge home tomorrow afternoon if patient remains stable with no f urther episodes of chest pain Further recommendations pending patient's course Nurse practitioner note has been reviewed by physician. Signing provider agrees with the documented findings, assessment, and plan of care. Objective - Vital Signs Vital signs: Vital Signs Temp 97.5 F L 10/21/23 09:10 Pulse 69 10/21/23 11:30 Resp 18 10/21/23 11:30 BP 89/54 10/21/23 11:30 Pulse Ox 94 L 10/21/23 11:30 FiO2 Intake & Output 10/20/23 10/21/23 10/21/23 18:59 06:59 18:59 Intake Total 33.055 50.082 298.51 Balance 33.055 50.082 298.51 Weight 39.825 kg Intake: Intake, IV Titration 33.055 50.082 62.51 Amount Heparin Sod,Pork in 0.45% 33.055 50.082 62.51 NaCl 25,000 unit In 0.45 % NaCl 1 250ml.bag @ 12 UNITS/KG/HR 4.779 mls/hr IV .Q24H [facility] Rx#: [id number] Oral 0 236 Other: Voiding Method Toilet Toilet Toilet # Voids 3 3 - Labs CBC & Chem 7: 10/20/23 07:50 10/19/23 14:27 Labs: Abnormal Lab Results - Last 24 Hours (Table) 10/20/23 10/20/23 10/21/23 Range/Units 14:48 21:30 08:45 APTT 30.8 H 43.2 H 51.8 H (22.0-30.0) sec
[2023-10-21] MEDS: HEPARIN SOD,PORK IN 0.45% NACL 25,000 UNIT in 0.45% NACL 1 250ML.BAG IV SCH (23:31)
[2023-10-22] MEDS: PANTOPRAZOLE 40 MG TABLET PO SCH (06:32)
[2023-10-22] MEDS: SYMBICORT 80-4.5 MCG INHALER INHALATION SCH ×2 (08:07→21:18)
[2023-10-22] MEDS: ASPIRIN 81 MG PO SCH (09:31)
[2023-10-22] MEDS: PRASUGREL 10 MG TAB PO SCH (09:31)
[2023-10-22] MEDS: FUROSEMIDE 40 MG TAB PO SCH (09:31)
[2023-10-22] MEDS: RANOLAZINE 500 MG TAB.ER.12H PO SCH ×2 (09:31→21:14)
[2023-10-22] MEDS: METOPROLOL SUCCINATE (ER) 50 MG TAB.ER.24H PO SCH (09:31)
[2023-10-22] MEDS: ATORVASTATIN 80 MG TAB PO SCH (09:31)
[2023-10-22] MEDS: ISOSORBIDE MONONITRATE ER 30 MG TAB.ER.24H PO SCH (09:31)
[2023-10-22] MEDS: PSYLLIUM HUSK 100% 6 GM PACKET PO SCH (09:31)
[2023-10-22] MEDS: NICOTINE 21MG/24HR PATCH TRANSDERM SCH ×2 (09:31→09:33)
--- NOTE | 2023-10-22 11:44 | P.PN ---
Subjective HISTORY OF PRESENT ILLNESS: The patient is a pleasant 68-year-old female patient with coronary artery disease and prior stenting of the LAD in the year 2022 as well as hypertension and dyslipidemia and anxiety. She presented to the emergency department was 24 hours intermittent episodes of chest discomfort. Discomfort was dull kind of discomfort in the mid of the chest was no radiation. It was associated with dizziness and lightheadedness but no presyncope and no syncope and no sweating. She was seen in the emergency department where an EKG was performed and showed sinus mechanism was nonspecific changes but because she continues to have ongoing chest discomfort heart catheterization was advised. The heart ca theterization revealed patent stent in the mid LAD with intermediate disease involving the mid to distal LAD and severe hazy lesion involving the ostial of the large first diagonal branch. Giving the anatomy and the location of the lesion I decided to treat the patient medically. Also she was found to have intermediate disease involving the ostial left circumflex coronary artery beach she likely had lack rupture involving the ostial diagonal branch. The procedure was performed from the right radial artery beach she was asymptomatic by the end of the procedure. She stated that she has been compliant with her medications that she was on dual antiplatelet therapy along with the intensity statin. The examination is remarkable for stable vital signs with regular rate and rhythm with soft systolic murmur at the right and left upper sternal border with diminished breathing sounds bilaterally and no lower extremity edema and she has soft nontender abdomen 10/20/2023 Patient examined this morning at the bedside. Patient currently denies shortness of breath. She reports chest pain this morning that feels like a squeezing sensation in the upper left side of her chest with radiation to her arm. She also reports feeling nauseated. EKG was completed with no acute changes. Echocardiogram completed revealing ejection fraction 10-15%, moderate pulmonary hypertension, and moderate to severe tricuspid regurgitation with mild mitral regurgitation. 10/21/2023 Patient examined this morning at the bedside. Patient currently denies chest pain or pressure. She denies shortness of breath. She does report some chest discomfort with deep inspiration. She remains on IV heparin. Echocardiogram completed revealing ejection fraction 10-15%. 10/22/2023 Patient examined this morning at the bedside. Patient denies chest pain or pressure. She denies shortness of breath. Blood pressures have been low with a systolic in the 80s to 90s. PHYSICAL EXAM: VITAL SIGNS: Reviewed. GENERAL: Well-developed in no acute distress. NECK: Supple. No JVD or thyromegaly LUNGS: Respirations even and unlabored. Lungs essentially clear to auscultation bilaterally. HEART: Regular rate and rhythm. S1 and S2 heard. Systolic murmur noted. EXTREMITIES: Normal range of motion. No clubbing or cyanosis. Peripheral pulses intact. No lower extremity edema ASSESSMENT: Non-STEMI Plaque rupture and thrombus formation of first diagonal branch Elevated left-sided filling pressures Coronary artery disease with previous stenting of the mid LAD Ischemic cardiomyopathy, EF 10-15% Hypertension Hyperlipidemia Nicotine dependence PLAN: Continue dual antiplatelet therapy with aspirin and Effient Discontinue IV heparin Decrease metoprolol to 25 mg Hold dose of lisinopril this morning due to hypotension. Resume tomorrow at a lower dose of 2.5 mg Continue to monitor blood pressure Anticipate discharge home tomorrow if blood pressure remains stable Nurse practitioner note has been reviewed by physician. Signing provider agrees with the documented findings, assessment, and plan of care. Objective - Vital Signs Vital signs: Vital Signs Temp 97.9 F 10/22/23 08:00 Pulse 70 10/22/23 08:00 Resp 18 10/22/23 08:00 BP 99/64 10/22/23 08:00 Pulse Ox 98 10/22/23 08:09 FiO2 Intake & Output 10/21/23 10/22/23 10/22/23 18:59 06:59 18:59 Intake Total 534.51 104.353 120 Output Total 0 Balance 534.51 104.353 120 Weight 39.825 kg Intake: Intake, IV Titration 62.51 104.353 Amount Heparin Sod,Pork in 0.45% 62.51 104.353 NaCl 25,000 unit In 0.45 % NaCl 1 250ml.bag @ 12 UNITS/KG/HR 4.779 mls/hr IV .Q24H [facility] Rx#: [id number] Oral 472 120 Output: Gastric Drainage 0 Urine 0 Stool 0 Urine/Stool Mix 0 Emesis 0 Oral Regurgitation 0 Other 0 Other: Voiding Method Toilet Toilet Toilet # Voids 3 3 0 # Bowel Movements 0 - Labs CBC & Chem 7: 10/20/23 07:50 10/19/23 14:27 Labs: Abnormal Lab Results - Last 24 Hours (Table) 10/21/23 10/22/23 Range/Units 14:50 09:25 APTT 54.5 H 57.6 H (22.0-30.0) sec
--- NOTE | 2023-10-22 17:07 | P.PN ---
Subjective This is a 58-year-old patient of follows with Dr. Mcintyre. Chronic stable medical conditions include COPD, hypertension, hyperlipidemia, chronic kidney disease, anxiety. In April 2023 patient had a non-ST elevation UT had a cardiac catheterization with stent to the mid LAD by Dr. Vargas. Patient decided not to follow-up as she was afraid. Also is due for a stress test. Patient been experienced chest pain on walking a few steps. Normally stops. Had decided not to see a operations representative. This afternoon patient started having pain going across her chest. Going on the left arm. Associated with dizziness lightheadedness perspiration: Clammy. Also vomited. Pain lasts for at least 4 hours before she decided to come in. Still having active chest pain. Initial troponin is 0.8. Ruled in for acute non-Q-wave UT. Patient has continued to smoke. 10/20/2023: Patient underwent cardiac catheterization by Dr. Vargas yesterday. 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 Stent could not be placed. Medical management. On IV heparin. Patient still having chest pressure this morning. Uncomfortable. Imdur and Ranexa added by cardiology 10/21/2023: Patient feeling better today. Remains on IV heparin. Nitro paste. His Zestril was started today. Patient eating a bit better. For medical management. Per cardiology. 10/22/2023 This is a pleasant 58 years old female was admitted with non-STEMI evaluated by operations representative shown to have severe cardiomyopathy with ejection fraction 15% and moderate to severe tricuspid regurgitation She was treated with heparin drip Today heparin drip was discontinued. Patient states she has aspirin and effienbt at [facility], which is continue with currently No chest pain today She is mildly tachypneic, she states she has history of COPD. We will add prednisone 40 mg a breathing treatment But pressure was on the low side, lisinopril 10 mg lower to 12.5 and metoprolol 50 down to 25 mg Possible discharge in 24 hours if cardiac clearance remain stable Objective - Vital Signs Vital signs: Vital Signs Temp 97.9 F 10/22/23 08:00 Pulse 70 10/22/23 08:00 Resp 18 10/22/23 08:00 BP 99/64 10/22/23 08:00 Pulse Ox 98 10/22/23 08:09 FiO2 Intake & Output 10/21/23 10/22/23 10/22/23 18:59 06:59 18:59 Intake Total 534.51 104.353 480 Output Total 0 Balance 534.51 104.353 480 Weight 39.825 kg Intake: Intake, IV Titration 62.51 104.353 Amount Heparin Sod,Pork in 0.45% 62.51 104.353 NaCl 25,000 unit In 0.45 % NaCl 1 250ml.bag @ 12 UNITS/KG/HR 4.779 mls/hr IV .Q24H [facility] Rx#: [id number] Oral 472 480 Output: Gastric Drainage 0 Urine 0 Stool 0 Urine/Stool Mix 0 Emesis 0 Oral Regurgitation 0 Other 0 Other: Voiding Method Toilet Toilet Toilet # Voids 3 3 0 # Bowel Movements 0 - Exam GENERAL: The patient is alert and oriented x3, not in any acute distress. Well developed, well nourished. HEENT: Pupils are round and equally reacting to light. EOMI. No scleral icterus. No conjunctival pallor. Normocephalic, atraumatic. No pharyngeal erythema. No thyromegaly. CARDIOVASCULAR: S1 and S2 present. No murmurs, rubs, or gallops. -PULMONARY: Chest is clear to auscultation,no crackles. Prolonged expiration with mild scattered wheezes ABDOMEN: Soft, nontender, nondistended, normoactive bowel sounds. No palpable organomegaly. MUSCULOSKELETAL: No joint swelling or deformity. EXTREMITIES: No cyanosis, clubbing, or pedal edema. NEUROLOGICAL: Gross neurological examination did not reveal any focal deficits. SKIN: No rashes. no petechiae. - Labs CBC & Chem 7: 10/20/23 07:50 10/19/23 14:27 Labs: Abnormal Lab Results - Last 24 Hours (Table) 10/21/23 10/22/23 Range/Units 14:50 09:25 APTT 54.5 H 57.6 H (22.0-30.0) sec Assessment and Plan Assessment: Assessment and plan: -Acute non-Q-wave UT. Patient had chest pain for several hours still currently present. Has been having symptoms for quite a few days. Had decided not to follow-up with his operations representative afraid about the consequences including .: Uncontrolled Aspirin. Beta perla. IV heparin Discontinue with Imdur and Ranexa added today Cardiac catheterization: Severe ostial lesion involving the first diagonal branch likely representing blackstrap children thrombus formation. Unable to be stented.: Pinnae with medical management -Borderline low blood pressure, as symptomatic Decrease lisinopril 10 mg down to 2.5 mg and metoprolol 50 mg down to 25 mg Keep monitoring for another 24 hours if stable may be cleared by operations representative and possible discharge in 24 hours - Mild acute COPD exacerbation in former smoker Start prednisone 40 mg -Post angina pain -CAD with stent to mid LAD in April [address] Vargas Aspirin. Effient. Toprol-XL. Lipitor. -Chronic bladder dysfunction with urinary hesitancy and frequency -COPD in a current smoker Advair -Chronic nicotine dependence, cigarette smoker Nicotine patch. Patient counseled -Essential hypertension Toprol-XL -Hyperlipidemia Lipitor -Primary osteoarthritis multiple joints bilaterally Tylenol as needed -Chronic constipation Metamucil -Severe protein calorie malnutrition Ensure. Consult dietitian. -Full code
[2023-10-22] MEDS: HEPARIN SODIUM,PORCINE 5,000 UNIT/ML 1 ML VIAL SQ SCH ×2 (17:34→23:59)
[2023-10-22 18:34] LABS: HCT 35.3 % (34.0-46.0); HGB 12.3 gm/dL (11.4-16.0); MCH 34.2 pg (25.0-35.0); MCHC 34.7 g/dL (31.0-37.0); MCV 98.5 fL (80.0-100.0); Mean Platelet Volume 7.7; Platelet Count 213 k/uL (150-450); RBC 3.59 m/uL (3.80-5.40); WBC 8.9 k/uL (3.8-10.6)
[2023-10-22 19:41] LABS: African American GFR (CKD) 61 (>60 ml/min/1.73 sqM); Anion Gap 8 mmol/L; Blood Urea Nitrogen 42 mg/dL (7-17); Calcium 9.1 mg/dL (8.4-10.2); Carbon Dioxide 27 mmol/L (22-30); Chloride 96 mmol/L (98-107); Glucose 109 mg/dL (74-99); Non-African American GFR(CKD) 53 (>60 ml/min/1.73 sqM); Potassium 5.1 mmol/L (3.5-5.1); Sodium 131 mmol/L (137-145)
[2023-10-23] MEDS: PANTOPRAZOLE 40 MG TABLET PO SCH (06:26)
[2023-10-23] MEDS: SYMBICORT 80-4.5 MCG INHALER INHALATION SCH ×2 (07:53→21:21)
[2023-10-23] MEDS: METOPROLOL SUCCINATE (ER) 25 MG TAB.ER.24H PO SCH (08:56)
[2023-10-23] MEDS: ATORVASTATIN 80 MG TAB PO SCH (08:57)
[2023-10-23] MEDS: HEPARIN SODIUM,PORCINE 5,000 UNIT/ML 1 ML VIAL SQ SCH ×3 (08:57→23:39)
[2023-10-23] MEDS: PSYLLIUM HUSK 100% 6 GM PACKET PO SCH (08:57)
[2023-10-23] MEDS: ISOSORBIDE MONONITRATE ER 30 MG TAB.ER.24H PO SCH (08:57)
[2023-10-23] MEDS: NICOTINE 21MG/24HR PATCH TRANSDERM SCH (08:57)
[2023-10-23] MEDS: RANOLAZINE 500 MG TAB.ER.12H PO SCH ×2 (08:57→20:58)
[2023-10-23] MEDS: ASPIRIN 81 MG PO SCH (08:57)
[2023-10-23] MEDS: PRASUGREL 10 MG TAB PO SCH (08:57)
--- NOTE | 2023-10-23 08:57 | P.PN ---
Subjective Progress Note Date: 10/23/23 Principal diagnosis: Coronary artery disease The patient is a 58-year-old female patient was coronary artery disease and prior stenting of the LAD as well as ischemic cardiomyopathy and dyslipidemia was admitted to the hospital with chest discomfort and ruled in for acute varela ry event. She underwent a heart catheterization and that patent stent in the LAD with a plaque rupture involving the ostial of the diagonal branch which we decided to treat medically. She was seen and evaluated this morning. She is asymptomatic. The pressure continues to be marginal with 1 measurements in the 80 and for that reason I would suggest monitoring the patient for additional 24 hours with hold lisinopril at this point. Examination is remarkable for regular rhythm with clear breathing sounds bilaterally and no lower extremity edema noted Assessment Acute non-ST patient myocardial infarction Coronary artery disease status post PCI of the LAD Ischemic cardiomyopathy Dyslipidemia Plan Hold lisinopril Monitor the patient for additional 24 hours Follow-up with the patient Objective - Vital Signs Vital signs: Vital Signs Temp 97.8 F 10/23/23 04:00 Pulse 70 10/23/23 04:00 Resp 18 10/23/23 04:00 BP 104/68 10/23/23 04:00 Pulse Ox 98 10/23/23 07:55 FiO2 Intake & Output 10/22/23 10/23/23 10/23/23 18:59 06:59 18:59 Intake Total 600 Output Total 0 Balance 600 Intake: Oral 600 Output: Gastric Drainage 0 Urine 0 Stool 0 Urine/Stool Mix 0 Emesis 0 Oral Regurgitation 0 Other 0 Other: Voiding Method Toilet Toilet # Voids 0 3 # Bowel Movements 0 - Labs CBC & Chem 7: 10/22/23 18:18 10/22/23 18:18 Labs: Abnormal Lab Results - Last 24 Hours (Table) 10/22/23 10/22/23 10/22/23 Range/Units 09:25 18:18 18:18 RBC 3.59 L (3.80-5.40) m/uL APTT 57.6 H (22.0-30.0) sec Sodium 131 L (137-145) mmol/L Chloride 96 L (98-107) mmol/L BUN 42 H (7-17) mg/dL Creatinine 1.14 H (0.52-1.04) mg/dL Glucose 109 H (74-99) mg/dL
[2023-10-23 09:36] LABS: African American GFR (CKD) 76 (>60 ml/min/1.73 sqM); Anion Gap 12 mmol/L; Blood Urea Nitrogen 35 mg/dL (7-17); Calcium 9.4 mg/dL (8.4-10.2); Carbon Dioxide 28 mmol/L (22-30); Chloride 97 mmol/L (98-107); Glucose 118 mg/dL (74-99); Non-African American GFR(CKD) 66 (>60 ml/min/1.73 sqM); Potassium 4.2 mmol/L (3.5-5.1); Sodium 137 mmol/L (137-145)
--- NOTE | 2023-10-23 20:05 | P.PN ---
Subjective This is a 58-year-old patient of follows with Dr. Mcintyre. Chronic stable medical conditions include COPD, hypertension, hyperlipidemia, chronic kidney disease, anxiety. In April 2023 patient had a non-ST elevation NM had a cardiac catheterization with stent to the mid LAD by Dr. Vargas. Patient decided not to follow-up as she was afraid. Also is due for a stress test. Patient been experienced chest pain on walking a few steps. Normally stops. Had decided not to see a door captain. This afternoon patient started having pain going across her chest. Going on the left arm. Associated with dizziness lightheadedness perspiration: Clammy. Also vomited. Pain lasts for at least 4 hours before she decided to come in. Still having active chest pain. Initial troponin is 0.8. Ruled in for acute non-Q-wave NM. Patient has continued to smoke. 10/20/2023: Patient underwent cardiac catheterization by Dr. Vargas yesterday. 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 Stent could not be placed. Medical management. On IV heparin. Patient still having chest pressure this morning. Uncomfortable. Imdur and Ranexa added by cardiology 10/21/2023: Patient feeling better today. Remains on IV heparin. Nitro paste. His Zestril was started today. Patient eating a bit better. For medical management. Per cardiology. 10/22/2023 This is a pleasant 58 years old female was admitted with non-STEMI evaluated by door captain shown to have severe cardiomyopathy with ejection fraction 15% and moderate to severe tricuspid regurgitation She was treated with heparin drip Today heparin drip was discontinued. Patient states she has aspirin and effienbt at [facility], which is continue with currently No chest pain today She is mildly tachypneic, she states she has history of COPD. We will add prednisone 40 mg a breathing treatment But pressure was on the low side, lisinopril 10 mg lower to 12.5 and metoprolol 50 down to 25 mg Possible discharge in 24 hours if cardiac clearance remain stable 10/23/2023 Patient kept in the hospital because blood pressure was on the low side yesterday, her oral dose Lasix 40 mg daily was held this morning Her blood pressure was still on the low side 80/74 this morning, her morning dose of lisinopril 2.5 mg was held as well. Her blood pressure improved by the afternoon We will keep monitoring for another 24 hours creatinine improved to 0.9 Objective - Vital Signs Vital signs: Vital Signs Temp 98.0 F 10/23/23 07:30 Pulse 69 10/23/23 12:00 Resp 20 10/23/23 12:00 BP 90/59 10/23/23 12:00 Pulse Ox 94 L 10/23/23 12:00 FiO2 Intake & Output 10/22/23 10/23/23 10/23/23 18:59 06:59 18:59 Intake Total 600 480 Output Total 0 Balance 600 480 Intake: Oral 600 480 Output: Gastric Drainage 0 Urine 0 Stool 0 Urine/Stool Mix 0 Emesis 0 Oral Regurgitation 0 Other 0 Other: Voiding Method Toilet Toilet # Voids 0 3 # Bowel Movements 0 - Exam GENERAL: The patient is alert and oriented x3, not in any acute distress. Well developed, well nourished. HEENT: Pupils are round and equally reacting to light. EOMI. No scleral icterus. No conjunctival pallor. Normocephalic, atraumatic. No pharyngeal erythema. No thyromegaly. CARDIOVASCULAR: S1 and S2 present. No murmurs, rubs, or gallops. -PULMONARY: Chest is clear to auscultation,no crackles. Prolonged expiration with mild scattered wheezes ABDOMEN: Soft, nontender, nondistended, normoactive bowel sounds. No palpable organomegaly. MUSCULOSKELETAL: No joint swelling or deformity. EXTREMITIES: No cyanosis, clubbing, or pedal edema. NEUROLOGICAL: Gross neurological examination did not reveal any focal deficits. SKIN: No rashes. no petechiae. - Labs CBC & Chem 7: 10/22/23 18:18 10/23/23 08:15 Labs: Abnormal Lab Results - Last 24 Hours (Table) 10/22/23 10/22/23 10/23/23 Range/Units 18:18 18:18 08:15 RBC 3.59 L (3.80-5.40) m/uL Sodium 131 L (137-145) mmol/L Chloride 96 L 97 L (98-107) mmol/L BUN 42 H 35 H (7-17) mg/dL Creatinine 1.14 H (0.52-1.04) mg/dL Glucose 109 H 118 H (74-99) mg/dL Assessment and Plan Assessment: Assessment and plan: -Acute non-Q-wave NM. Patient had chest pain for several hours still currently present. Has been having symptoms for quite a few days. Had decided not to follow-up with his door captain afraid about the consequences including .: Uncontrolled Aspirin. Beta perla. IV heparin Discontinue with Imdur and Ranexa added today Cardiac catheterization: Severe ostial lesion involving the first diagonal branch likely representing blackstrap children thrombus formation. Unable to be stented.: Pinnae with medical management -Borderline low blood pressure, as symptomatic Decrease lisinopril 10 mg down to 2.5 mg and metoprolol 50 mg down to 25 mg Keep monitoring for another 24 hours if stable may be cleared by door captain and possible discharge in 24 hours - Mild acute COPD exacerbation in former smoker Start prednisone 40 mg -Post angina pain -CAD with stent to mid LAD in April [address] Vargas Aspirin. Effient. Toprol-XL. Lipitor. -Chronic bladder dysfunction with urinary hesitancy and frequency -COPD in a current smoker Advair -Chronic nicotine dependence, cigarette smoker Nicotine patch. Patient counseled -Essential hypertension Toprol-XL -Hyperlipidemia Lipitor -Primary osteoarthritis multiple joints bilaterally Tylenol as needed -Chronic constipation Metamucil -Severe protein calorie malnutrition Ensure. Consult dietitian. -Full code
[2023-10-24] MEDS: PANTOPRAZOLE 40 MG TABLET PO SCH (06:19)
[2023-10-24] MEDS: SYMBICORT 80-4.5 MCG INHALER INHALATION SCH (07:31)
[2023-10-24] MEDS: ISOSORBIDE MONONITRATE ER 30 MG TAB.ER.24H PO SCH (09:33)
[2023-10-24] MEDS: ATORVASTATIN 80 MG TAB PO SCH (09:33)
[2023-10-24] MEDS: METOPROLOL SUCCINATE (ER) 25 MG TAB.ER.24H PO SCH (09:33)
[2023-10-24] MEDS: ASPIRIN 81 MG PO SCH (09:33)
[2023-10-24] MEDS: HEPARIN SODIUM,PORCINE 5,000 UNIT/ML 1 ML VIAL SQ SCH (09:33)
[2023-10-24] MEDS: RANOLAZINE 500 MG TAB.ER.12H PO SCH (09:33)
[2023-10-24] MEDS: PRASUGREL 10 MG TAB PO SCH (09:33)
[2023-10-24] MEDS: NICOTINE 21MG/24HR PATCH TRANSDERM SCH (09:33)
[2023-10-24] MEDS: PSYLLIUM HUSK 100% 6 GM PACKET PO SCH (09:34)
[2023-10-24 12:48] VITALS: BP 98/67; PULSE 58; RESP 16; TEMP 98.3
--- NOTE | 2023-10-24 14:08 | P.PN ---
Subjective Progress Note Date: 10/24/23 Coronary artery disease The patient is a 58-year-old female patient was coronary artery disease and prior stenting of the LAD as well as ischemic cardiomyopathy and dyslipidemia was admitted to the hospital with chest discomfort and ruled in for acute coronary event. She underwent a heart catheterization and that patent stent in the LAD with a plaque rupture involving the ostial of the diagonal branch which we decided to treat medically. She was seen and evaluated this morning. She is asymptomatic. The pressure continues to be marginal with 1 measurements in the 80 and for that reason I would suggest monitoring the patient for additional 24 hours with hold lisinopril at this point. 10/24 Patient is seen today in follow-up. Right wrist shows no sign of hematoma. Patient denies chest pain. Blood pressure 99/64, heart rate in the 50s. BUN 35 creatinine 0.95. Sodium 137, potassium 4.2. Examination is remarkable for regular rhythm with clear breathing sounds bilaterally and no lower extremity edema noted Assessment Acute non-ST myocardial infarction Coronary artery disease status post PCI of the LAD Ischemic cardiomyopathy Dyslipidemia Plan Patient has been resumed on lisinopril 2.5 mg daily, continue Toprol-XL 25 mg daily Also continue aspirin, statin and Effient, Ranexa. Patient is cleared for discharge from cardiology and may follow up with Dr. Vargas in one week. Nurse practitioner note has been reviewed, I agree with the documented findings and plan of care. Patient was seen and examined. Objective - Vital Signs Vital signs: Vital Signs Temp 98 F 10/24/23 08:00 Pulse 50 L 10/24/23 08:00 Resp 17 10/24/23 08:00 BP 99/64 10/24/23 08:00 Pulse Ox 100 10/24/23 08:00 FiO2 Intake & Output 10/23/23 10/24/23 10/24/23 18:59 06:59 18:59 Intake Total 1200 180 Balance 1200 180 Weight 39.825 kg Intake: Oral 1200 180 Other: Voiding Method Toilet # Voids 1 1 # Bowel Movements 0 - Labs CBC & Chem 7: 10/22/23 18:18 10/23/23 08:15
== END 2023-10-24 14:32 | disposition home health service (06) | DRG 190 ==
LOC: EC 13:01 → 3SCARD 15:57
PROVIDERS: ADMIT Hospitalist; ATTEND Hospitalist
PROC: 4A023N7 Measurement of Cardiac Sampling and Pressure, Left Heart, Percutaneous Approach (ICD-10-PCS; principal; 2023-10-20)
PROC: B2111ZZ Fluoroscopy of Multiple Coronary Arteries using Low Osmolar Contrast (ICD-10-PCS; 2023-10-20)
DX: I21.4 Non-ST elevation (NSTEMI) myocardial infarction (principal); F17.210 Nicotine dependence, cigarettes, uncomplicated; I25.110 Atherosclerotic heart disease of native coronary artery with unstable angina pectoris; Z95.5 Presence of coronary angioplasty implant and graft; R35.0 Frequency of micturition; R39.11 Hesitancy of micturition; J44.0 Chronic obstructive pulmonary disease with (acute) lower respiratory infection; N18.9 Chronic kidney disease, unspecified; I12.9 Hypertensive chronic kidney disease with stage 1 through stage 4 chronic kidney disease, or unspecified chronic kidney disease; E43 Unspecified severe protein-calorie malnutrition; M19.91 Primary osteoarthritis, unspecified site; K59.09 Other constipation; E78.5 Hyperlipidemia, unspecified; Z68.1 Body mass index [BMI] 19.9 or less, adult; I27.20 Pulmonary hypertension, unspecified; F41.9 Anxiety disorder, unspecified; E11.22 Type 2 diabetes mellitus with diabetic chronic kidney disease; F32.A Depression, unspecified; I25.2 Old myocardial infarction; I08.1 Rheumatic disorders of both mitral and tricuspid valves; G47.00 Insomnia, unspecified; I25.5 Ischemic cardiomyopathy; K21.9 Gastro-esophageal reflux disease without esophagitis; Z79.02 Long term (current) use of antithrombotics/antiplatelets; Z79.51 Long term (current) use of inhaled steroids; Z79.82 Long term (current) use of aspirin; Z79.899 Other long term (current) drug therapy; Z88.2 Allergy status to sulfonamides; Z86.16 Personal history of COVID-19; Z71.6 Tobacco abuse counseling
CPT/HCPCS: 36415; 71046; 76937; 80048; 80053; 80061; 83735; 83880; 84484; 85025; 85027; 85610; 85730; 93005; 93306; 93458; 94640; 94760; 96374; 99291

== ENCOUNTER 2024-01-10 22:46 | Inpatient (IN) | payer OTHER ==
[2024-01-10 23:19] LABS: Basophils # (A) 0.1 k/uL (0-0.2); Basophils % (A) 1 %; Eosinophils # (A) 0.1 k/uL (0-0.7); Eosinophils % (A) 1 %; HGB 12.8 gm/dL (11.4-16.0); Lymphocytes # (A) 1.9 k/uL (1.0-4.8); Lymphocytes % (A) 18 %; MCH 33.4 pg (25.0-35.0); MCHC 32.8 g/dL (31.0-37.0); Macrocytosis Slight; Mean Platelet Volume 7.5; Monocytes # (A) 0.4 k/uL (0-1.0); Monocytes % (A) 4 %; Neutrophils # (A) 7.9 k/uL (1.3-7.7); Neutrophils % (A) 75 %; Platelet Count 308 k/uL (150-450); RBC 3.82 m/uL (3.80-5.40); RDW 13.2 % (11.5-15.5); WBC 10.5 k/uL (3.8-10.6)
[2024-01-10 23:30] LABS: ALT 37 U/L (4-34); AST 34 U/L (14-36); African American GFR (CKD) >90 (>60 ml/min/1.73 sqM); Albumin 3.9 g/dL (3.5-5.0); Alkaline Phosphatase 89 U/L (38-126); Anion Gap 8 mmol/L; Blood Urea Nitrogen 18 mg/dL (7-17); Carbon Dioxide 22 mmol/L (22-30); Chloride 107 mmol/L (98-107); Glucose 126 mg/dL (74-99); Magnesium 1.7 mg/dL (1.6-2.3); Non-African American GFR(CKD) >90 (>60 ml/min/1.73 sqM); Potassium 4.6 mmol/L (3.5-5.1); Sodium 137 mmol/L (137-145); Total Bilirubin 0.9 mg/dL (0.2-1.3); Total Protein 6.9 g/dL (6.3-8.2)
[2024-01-10 23:52] LABS: INR 1.1 (<1.2)
[2024-01-11 00:01] LABS: Partial Thromboplastin Time 18.2 sec (22.0-30.0)
--- NOTE | 2024-01-11 00:19 | ED ---
Chest Pain HPI - General Chief Complaint: Chest Pain Stated Complaint: chest pain Time Seen by Provider: 01/10/24 22:50 Source: patient, EMS Mode of arrival: EMS - History of Present Illness Initial Comments: Jessie is a pleasant 58-year-old female who presents to the emergency department today via ambulance for evaluation of right-sided chest pain. Patient reports she has had 2 to 3 days of pain in the right chest and increased shortness of breath. Patient has a history of COPD but reports that this feels different. Patient states that the pain is in her right upper chest that is worse with exertion and associated with shortness of breath but no diaphoresis or lightheadedness. Patient states that she has a history of COPD that she has been told she has spots on her lungs in the past but has not had any follow-up on this. Patient also states that 1 time when she was admitted here somebody came in the hospital room and told her something was wrong with one of her kidney she is not sure what was wrong she never had any follow-up on this either. - Related Data Home Medications Medication Instructions Recorded Confirmed Fluticasone Propion/Salmeterol 1 puff INHALATION RT-BID 10/19/23 10/19/23 [Advair 250-50 Diskus] Metoprolol Succinate [Toprol XL] 50 mg PO DAILY 10/19/23 10/19/23 Previous Rx's Medication Instructions Recorded Aspirin 81 mg PO DAILY tab 04/17/23 Atorvastatin [Lipitor] 80 mg PO DAILY 30 Days #30 tab 04/17/23 Isosorbide Mononitrate ER [Imdur] 30 mg PO DAILY 30 Days #30 tab 04/17/23 Prasugrel [Effient] 10 mg PO DAILY 30 Days #30 tab 04/17/23 Nicotine 21Mg/24Hr Patch [Habitrol] 1 patch TRANSDERM DAILY 7 Days #7 10/24/23 patch Pantoprazole [Protonix] 40 mg PO AC-BRKFST 30 Days #30 tab 10/24/23 Ranolazine [Ranexa] 500 mg PO Q12HR #60 tab 10/24/23 lisinopriL [Zestril] 2.5 mg PO DAILY #30 tab 10/24/23 Allergies Allergy/AdvReac Type Severity Reaction Status Date / Time Sulfa (Sulfonamide Allergy increased Verified 01/10/24 22:51 Antibiotics) BP Review of Systems ROS Statement: Those systems with pertinent positive or pertinent negative responses have been documented in the HPI. ROS Other: All systems not noted in ROS Statement are negative. EKG Findings - EKG Comments: EKG Findings:: EKG obtained due to complaint of chest pain, EKG obtained at 2257 rate is 92 rhythm is sinus FL is short at 119, QRS 100 QTc 394. There are T wave inversions in the anterior lateral leads no ST elevations. Repeat EKG obtained at 4:16 AM, rate is 66 rhythm is sinus again short FL interval, FL 110 QRS 100 QTc 419. There are T wave inversions laterally. No acute ST elevations no evidence of acute infarction. Past Medical History Past Medical History: Coronary Artery Disease (CAD), COPD, Diabetes Mellitus, Hypertension, Myocardial Infarction ([place]), Renal Disease Additional Past Medical History / Comment(s): anxiety Last Myocardial Infarction Date:: April 2023 History of Any Multi-Drug Resistant Organisms: None Reported Past Surgical History: Heart Catheterization With Stent Past Anesthesia/Blood Transfusion Reactions: No Reported Reaction Date of Last Stent Placement:: April 2023 Past Psychological History: Anxiety, Depression Smoking Status: Current every day smoker Past Alcohol Use History: Abuse, Daily, Heavy Past Drug Use History: None Reported General Exam - General Exam Comments Initial Comments: Physical Exam GENERAL: Patient is well-developed and well-nourished. Patient is nontoxic and well-hydrated and is in no distress. HENT: Normocephalic, Atraumatic. EYES: PERRL, EOMI PULMONARY: Unlabored respirations. No audible rales rhonchi or wheezing was noted. CARDIOVASCULAR: There is a regular rate and rhythm without any murmurs gallops or rubs. ABDOMEN: Soft and nontender with normal bowel sounds. SKIN: Skin is clear with no lesions or rashes and otherwise unremarkable. : Deferred NEUROLOGIC: Patient is alert and oriented x3. Moving all extremities spontaneously MUSCULOSKELETAL: Normal extremities with adequate strength and full range of motion. No lower extremity swelling or edema. No calf tenderness. PSYCHIATRIC: Normal psychiatric evaluation. Course Vital Signs 01/10/24 01/10/24 01/10/24 22:52 23:01 23:02 Temperature 97.8 F Pulse Rate 101 H Pulse Rate [ 96 Pulse Oximetery ] Respiratory 26 H 26 H Rate Blood Pressure 142/100 O2 Sat by Pulse 99 Oximetry 01/10/24 01/11/24 01/11/24 23:10 00:16 01:05 Temperature Pulse Rate 87 73 76 Pulse Rate [ Pulse Oximetery ] Respiratory 24 22 20 Rate Blood Pressure 111/91 118/94 111/84 O2 Sat by Pulse 99 94 L 94 L Oximetry 01/11/24 01/11/24 01/11/24 03:17 03:53 05:28 Temperature Pulse Rate 72 75 62 Pulse Rate [ Pulse Oximetery ] Respiratory 15 22 19 Rate Blood Pressure 105/75 105/85 97/72 O2 Sat by Pulse 94 L 99 100 Oximetry 01/11/24 06:05 Temperature Pulse Rate 71 Pulse Rate [ Pulse Oximetery ] Respiratory Rate Blood Pressure 96/65 O2 Sat by Pulse 100 Oximetry Chest Pain MDM - MDM Was pt. sent in by a medical professional or institution (, PA, PRIZE COORDINATOR, urgent care, hospital, or senior living...) When possible be specific @ -No Did you speak to anyone other than the patient for history (EMS, parent, family, police, friend...)? What history was obtained from this source @ -EMS Did you review nursing and triage notes (agree or disagree)? Why? @ -I reviewed and agree with nursing and triage notes Were old charts reviewed (outside hosp., previous admission, EMS record, old EKG, old radiological studies, urgent care reports/EKG's, senior living records)? Report findings @ -Previous admission notes were reviewed Differential Diagnosis (chest pain, altered mental status, abdominal pain women, abdominal pain men, vaginal bleeding, weakness, fever, dyspnea, syncope, headache, dizziness, GI bleed, back pain, seizure, CVA, palpatations, mental health)? @ -Not applicable EKG interpreted by me (3pts min.). @ -As above X-rays interpreted by me (1pt min.). @ -COPD changes, hyperinflation CT interpreted by me (1pt min.). @ -No pneumothorax no PE, mass on left kidney U/S interpreted by me (1pt. min.). @ -None done What testing was considered but not performed or refused? (CT, X-rays, U/S, labs)? Why? @ -CT of the abdomen, patient will require IV hydration prior to CT due to contrast load from PE study What meds were considered but not given or refused? Why? @ -None Did you discuss the management of the patient with other professionals (professionals i.e. DrMichael, PA, PRIZE COORDINATOR, lab, RT, psych nurse, social media executive, recycle worker, teacher, risk officer, rn field case manager)? Give summary @ -No Was smoking cessation discussed for >3mins.? @ -Yes Was critical care preformed (if so, how long)? @ -No Were there social determinants of health that impacted care today? How? (Homelessness, low income, unemployed, alcoholism, drug addiction, transportation, low edu. Level, literacy, decrease access to med. care, fdc, rehab)? @ -No Was there de-escalation of care discussed even if they declined (Discuss DNR or withdrawal of care, Hospice)? DNR status @ -No What co-morbidities impacted this encounter? (DM, HTN, Smoking, COPD, CAD, Cancer, CVA, ARF, Chemo, Hep., AIDS, mental health diagnosis, sleep apnea, morbid obesity)? @ -COPD, Was patient admitted / discharged? Hospital course, mention meds given and route, prescriptions, significant lab abnormalities, going to OR and other pertinent info. @ -Admit The patient was seen and evaluated, history was obtained from patient. EKG with T wave inversions no obvious ST elevations. Initial troponin is indeterminate, chest x-ray showed changes consistent with COPD however D-dimer was elevated and CTA was obtained. CTA reveals lung masses concerning for metastases as well as a renal mass. Dedicated CT of the abdomen pelvis needs to be performed however patient needs IV hydration prior to receiving a second IV contrast bolus. Patient will be admitted for further imaging, hydration and possible consultation to pulmonology and/or oncology. Undiagnosed new problem with uncertain prognosis? @ -S Drug Therapy requiring intensive monitoring for toxicity (Heparin, Nitro, Insulin, Cardizem)? @ -No Were any procedures done? @ -No Diagnosis/symptom? @ -Lung mass, renal mass Acute, or Chronic, or Acute on Chronic? @ -Acute Uncomplicated (without systemic symptoms) or Complicated (systemic symptoms)? @ -Complicated Side effects of treatment? @ -No Exacerbation, Progression, or Severe Exacerbation? @ -No Poses a threat to life or bodily function? How? (Chest pain, [place], [place], pneumonia, PE, COPD, DKA, ARF, appy, cholecystitis, CVA, Diverticulitis, Homicidal, Suicidal, threat to staff... and all critical care pts) @ -Potentially Disposition Clinical Impression: Atypical chest pain, Lung mass, Renal mass, COPD (chronic obstructive pulmonary disease), Tobacco abuse Disposition: ADMITTED IP TO THIS HOSP Condition: Serious Is patient prescribed a controlled substance at d/c from ED?: No Referrals: Champ Mcintyre MD [Primary Care Provider] - 1-2 days
--- NOTE | 2024-01-11 00:25 | XR ---
EXAM: XR Chest, 2 Views CLINICAL HISTORY: ITS.REASON XR Reason: Chest Pain TECHNIQUE: Frontal and lateral views of the chest. COMPARISON: 10/10/23 FINDINGS: Lungs: Persistent small amount of airspace opacities over right middle lung zone. COPD/pulmonary emphysema. Pleural space: Unremarkable. Mediastinum: Unremarkable. Normal mediastinal contour. Bones/joints: No acute findings. IMPRESSION: Persistent small amount of airspace opacities over right middle lung zone suggests atelectasis, scarring, pneumonia versus aspiration. Followup to resolution is recommended to rule out potential underlying neoplastic etiologies
--- NOTE | 2024-01-11 01:29 | CT ---
EXAM: CT Angiography Chest With Intravenous Contrast CLINICAL HISTORY: ITS.REASON CT Reason: chest pain, sob, + dimer TECHNIQUE: Axial computed tomographic angiography images of the chest with intravenous contrast. CTDI is 16.1 mGy and DLP is 186.3 mGy-cm. This CT exam was performed using one or more of the following dose reduction techniques: automated exposure control, adjustment of the mA and/or kV according to patient size, and/or use of iterative reconstruction technique. MIP reconstructed images were created and reviewed. Coronal and sagittal reformatted images were created and reviewed. 711 images COMPARISON: 04/11/23 FINDINGS: Pulmonary arteries: Unremarkable. No pulmonary embolism. Aorta: Small amount of atherosclerotic calcifications. No thoracic aortic aneurysm. Lungs: Moderate centrilobular pulmonary emphysema. Small amount of scatter atelectasis bilaterally. 9 mm spiculated nodule of right lung apex on series 401 image 38. Other smaller nodules of right upper lobe measuring about 5-6 mm on images 28, 31, 41. 4-6 mm pleural nodule of posterior left upper lobe on image 28 and 31. These are new. Pleural space: Unremarkable. No significant effusion. No pneumothorax. Heart: Moderate cardiomegaly predominantly involving the left chambers. No significant pericardial effusion. No evidence of RV dysfunction. Bones/joints: Osteopenia suspected. Moderate degenerative changes. Mild lower thoracic scoliosis convexed to the right. Soft tissues: Unremarkable. Lymph nodes: Unremarkable. No enlarged lymph nodes. Kidneys and ureters: Atrophic left kidney with large cysts, causing mass effect on adjacent structures. Largest visualized is about 8 x 11 cm. IMPRESSION: 1. No pulmonary embolism. No thoracic aortic aneurysm or dissection. 2. Atrophic left kidney with large cysts, causing mass effect on adjacent structures. 3. Bilateral upper lobe pulmonary nodules are new highly, suspicious for primary neoplasm versus metastases.
[2024-01-11] MEDS: SODIUM CHLORIDE 0.9% 1,000 ML IV ONE (03:49)
[2024-01-11] MEDS: SODIUM CHLORIDE 0.9% 1,000 ML IV SCH (03:50)
[2024-01-11] MEDS ORDERED: NALOXONE 0.4 MG/ML 1 ML VIAL IV PRN (06:06)
--- NOTE | 2024-01-11 07:36 | US ---
EXAMINATION TYPE: US kidneys/renal and bladder DATE OF EXAM: 01/11/2024 COMPARISON: 04/11/2023 ultrasound CLINICAL INDICATION: Female, 58 years old with history of renal mass; known left cyst, h/o lung CA EXAM MEASUREMENTS: Right Kidney: 9.0 x 5.3 x 4.5 cm Left Kidney: 6.2 x 5.2 x 4.9 cm01 Right Kidney: No hydronephrosis or masses seen Left Kidney:Large irregular fluid collection measuring 12.9 x 13.3 x 7.3cm . This area correlates wit h the prior severe hydronephrosis. Bladder: wnl Bilateral Jets seen: no There is no evidence for hydronephrosis at this point in time. No nephrolithiasis is seen. No ryan s are identified. The urinary bladder is anechoic. Bilateral ureteral jets are seen. IMPRESSION: 1. Lobular irregular cystlike area left kidney compatible with severe hydronephrosis. Stable from [facility].
[2024-01-11] MEDS: METOPROLOL SUCCINATE (ER) 50 MG TAB.ER.24H PO SCH (10:57)
[2024-01-11] MEDS: ATORVASTATIN 80 MG TAB PO SCH (10:58)
[2024-01-11] MEDS: ISOSORBIDE MONONITRATE ER 30 MG TAB.ER.24H PO SCH (10:58)
[2024-01-11] MEDS: PRASUGREL 10 MG TAB PO SCH (10:59)
[2024-01-11] MEDS: IPRATROPIUM-ALBUTEROL 3 ML NEB INHALATION SCH (12:19)
[2024-01-11] MEDS: ASPIRIN 81 MG PO SCH (12:25)
[2024-01-11] MEDS: HEPARIN SOD,PORK IN 0.45% NACL 25,000 UNIT in 0.45% NACL 1 250ML.BAG IV SCH (12:34)
[2024-01-11] MEDS: NICOTINE 7MG/24HR PATCH TRANSDERM SCH (12:36)
--- NOTE | 2024-01-11 13:55 | P.GSCN ---
History of Present Illness Consult date: 01/11/24 Reason for Consult: Left-sided hydronephrosis History of present illness: This is a 58-year-old female that presented to the hospital with right-sided chest pain. Urology is consulted for finding of severe left-sided hydronephrosis. 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 She indicated she does have intermittent left flank pain, but currently is asymptomatic. Denies any gross hematuria or dysuria. Denies any previous surgeries on that side. No known family history of renal malignancies. Patient was seen during her last hospital admission back in April [address] Little and was advised to follow-up as an outpatient. At that time she did have a CT abdomen pelvis which confirmed the finding. Subsequently during this hospitalization she underwent a repeat ultrasound which showed similar unchanged finding. Her creatinine is stable at 0.9 Review of Systems - Constitutional Denies fever, Denies weight loss - Cardiovascular Reports chest pain, Reports shortness of breath - Respiratory Denies cough, Denies 7 - Gastrointestinal Reports abdominal pain, Denies nausea, Denies vomiting - Genitourinary Genitourinary: Reports flank pain, Denies hematuria Past Medical History Past Medical History: Coronary Artery Disease (CAD), COPD, Diabetes Mellitus, Hypertension, Myocardial Infarction ([place]), Renal Disease Additional Past Medical History / Comment(s): anxiety Last Myocardial Infarction Date:: April 2023 History of Any Multi-Drug Resistant Organisms: None Reported Past Surgical History: Heart Catheterization With Stent Past Anesthesia/Blood Transfusion Reactions: No Reported Reaction Date of Last Stent Placement:: April 2023 Past Psychological History: Anxiety, Depression Smoking Status: Current every day smoker Past Alcohol Use History: Abuse, Daily, Heavy Past Drug Use History: None Reported Medications and Allergies Home Medications Medication Instructions Recorded Confirmed Type Aspirin 81 mg PO DAILY tab 04/17/23 01/11/24 Rx Atorvastatin [Lipitor] 80 mg PO DAILY 30 Days #30 tab 04/17/23 01/11/24 Rx Prasugrel [Effient] 10 mg PO DAILY 30 Days #30 tab 04/17/23 01/11/24 Rx Fluticasone Propion/Salmeterol 1 puff INHALATION RT-BID PRN 10/19/23 01/11/24 History [Advair 250-50 Diskus] Metoprolol Succinate [Toprol XL] 50 mg PO DAILY 10/19/23 01/11/24 History lisinopriL [Zestril] 2.5 mg PO DAILY #30 tab 10/24/23 01/11/24 Rx Isosorbide Mononitrate ER [Imdur] 30 mg PO DAILY 01/11/24 01/11/24 History Allergies Allergy/AdvReac Type Severity Reaction Status Date / Time Sulfa (Sulfonamide AdvReac increased Verified 01/11/24 09:43 Antibiotics) BP Surgical - Exam Vital Signs Temp Pulse Resp BP Pulse Ox 97.8 F 101 H 26 H 142/100 99 01/10/24 22:52 01/10/24 22:52 01/10/24 22:52 01/10/24 22:52 01/10/24 22:52 - General no distress, moderate pain - Eyes normal ocular movement, no pale - ENT normal nares, normal mucosa - Respiratory normal expansion, normal respiratory effort - Abdomen Abdomen: soft, non tender, no distended - Psychiatric oriented to time, oriented to person, oriented to place Results - Labs 01/10/24 23:09 01/10/24 23:09 Abnormal Lab Results - Last 24 Hours (Table) 01/10/24 01/10/24 01/10/24 Range/Units 23:09 23:09 23:09 MCV 102.0 H (80.0-100.0) fL Neutrophils # 7.9 H (1.3-7.7) k/uL APTT 18.2 L (22.0-30.0) sec D-Dimer (<0.60) mg/L FEU BUN 18 H (7-17) mg/dL Glucose 126 H (74-99) mg/dL ALT 37 H (4-34) U/L 01/10/24 Range/Units 23:42 MCV (80.0-100.0) fL Neutrophils # (1.3-7.7) k/uL APTT (22.0-30.0) sec D-Dimer 0.78 H (<0.60) mg/L FEU BUN (7-17) mg/dL Glucose (74-99) mg/dL ALT (4-34) U/L Diabetes panel 01/10/24 Range/Units 23:09 Sodium 137 (137-145) mmol/L Potassium 4.6 (3.5-5.1) mmol/L Chloride 107 (98-107) mmol/L Carbon Dioxide 22 (22-30) mmol/L BUN 18 H (7-17) mg/dL Creatinine 0.70 (0.52-1.04) mg/dL Glucose 126 H (74-99) mg/dL Calcium 9.0 (8.4-10.2) mg/dL AST 34 (14-36) U/L ALT 37 H (4-34) U/L Alkaline Phosphatase 89 (38-126) U/L Total Protein 6.9 (6.3-8.2) g/dL Albumin 3.9 (3.5-5.0) g/dL Calcium panel 01/10/24 Range/Units 23:09 Calcium 9.0 (8.4-10.2) mg/dL Albumin 3.9 (3.5-5.0) g/dL Pituitary panel 01/10/24 Range/Units 23:09 Sodium 137 (137-145) mmol/L Potassium 4.6 (3.5-5.1) mmol/L Chloride 107 (98-107) mmol/L Carbon Dioxide 22 (22-30) mmol/L BUN 18 H (7-17) mg/dL Creatinine 0.70 (0.52-1.04) mg/dL Glucose 126 H (74-99) mg/dL Calcium 9.0 (8.4-10.2) mg/dL Adrenal panel 01/10/24 Range/Units 23:09 Sodium 137 (137-145) mmol/L Potassium 4.6 (3.5-5.1) mmol/L Chloride 107 (98-107) mmol/L Carbon Dioxide 22 (22-30) mmol/L BUN 18 H (7-17) mg/dL Creatinine 0.70 (0.52-1.04) mg/dL Glucose 126 H (74-99) mg/dL Calcium 9.0 (8.4-10.2) mg/dL Total Bilirubin 0.9 (0.2-1.3) mg/dL AST 34 (14-36) U/L ALT 37 H (4-34) U/L Alkaline Phosphatase 89 (38-126) U/L Total Protein 6.9 (6.3-8.2) g/dL Albumin 3.9 (3.5-5.0) g/dL Assessment and Plan Assessment: 58-year-old female with history of 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 D iscussed with her her left kidney is nonfunctioning. She is intermittently symptomatic. Discussed with her in acute setting no intervention from urology standpoint discussed if she is symptomatic then we can proceed with a simple nephrectomy, but discussed if she is asymptomatic or minimally symptomatic then no further intervention is needed. Discussed with her even with a simple nephrectomy she might have persistent pain on the left. The left kidney is not the cause of her right-sided chest pain -No acute intervention from Urology standpoint, can follow-up as an outpatient if she is interested in proceeding with a simple nephrectomy
--- NOTE | 2024-01-11 14:52 | P.HPIM ---
History of Present Illness H&P Date: 01/11/24 Chief Complaint: Chest pain This is a 58-year-old patient of follows with Dr. Mcintyre. Chronic stable medical conditions include COPD, hypertension, hyperlipidemia, chronic kidney disease, anxiety. April 2023 - non-ST elevation RI had a cardiac catheterization with stent to the mid LAD by Dr. Vargas. Patient decided not to follow-up as she was afraid. October 2023 admitted with acute non-Q wave RI. cardiac catheterization by Dr. Vargas . 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 Stent could not be placed. Medical management. Imdur and Ranexa was added. Patient now presents with 2 days of chest pain across the chest. Was reluctant to come in. Finally her daughter called 911. Symptoms been getting worse. Short of breath. Breaking out in sweat. Still having chest pain. 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 Daughter she followed up with her human services care specialist. She is afraid of the hospitals. Tired. Review of systems: GEN.: Tired EYES: None HEENT: None NECK: None RESPIRATORY: Short of breath CARDIOVASCULAR: As above GASTROINTESTINAL: 1-2 bowel movements in a week GENITOURINARY: Chronic urinary urgency and hesitancy MUSCULOSKELETAL: Multiple joint pains LYMPHATICS: None HEMATOLOGICAL: None PSYCHIATRY: Anxiety NEUROLOGICAL: None Social history: Lives alone. Averaged a pack a day for 40 years stopped cut back 2022. Now smoked 1 to 3 cigarettes every other day. Was drinking heavy alcohol in the past. 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 Not currently Physical examination: VITAL SIGNS: 98.5, 66, 17, 107 x 75, 95% room air GENERAL: BMI 18.4, loss of muscle mass subcutaneous fat reclining in bed anxious EYES: Pupils equal. Conjunctiva normal. HEENT: External appearance of nose and ears normal, oral cavity grossly normal. NECK: JVD not raised; masses not palpable. HEART: First and second heart sounds are normal; no edema. LUNGS: Respiratory rate increased, decreased breath sounds. ABDOMEN: Soft, nontender, liver spleen not palpable, no masses palpable. PSYCH: Alert and oriented x3; mood and affect anxiousl. MUSCULOSKELETAL:No Clubbing/cyanosis;muscles-grossly intact. Loss of subcu interstitial muscle mass. Prominent bones. Evidence of OA. NEUROLOGICAL: Cranial nerves grossly intact; no facial asymmetry, power and sensation grossly intact. LYMPHATICS: No lymph nodes palpable in the axilla and neck INVESTIGATIONS, reviewed in the clinical context: January 09: White count 10.5 hemoglobin 12.8 platelets 308 potassium 4.6 BUN 18 creatinine 0.7 Troponin I 0.025, 0.028 EKG tracing personally reviewed by me-poor R wave progression. Flipped T waves in anterolateral leads. Chest x-ray film personally reviewed by me-hyperinflated lung lopes Chest CTA: No PE. Atrophic left kidney with large cyst causing mass effect on adjacent structures. Bilateral upper lobe pulmonary nodules are new. Assessment and plan: -Unstable angina in a patient with known prior CAD Aspirin. Beta perla. IV heparin started. Imdur and Ranexa was prescribed on last admission apparently patient did not take it. Unclear Cardiac catheterization [October 2023]: Severe ostial lesion involving the first diagonal branch likely representing thrombus formation. Unable to be stented.: 4 medical management -Bilateral upper lobe pulmonary nodules with questionable left mass left kidney Consult urology -IV heparin monitoring Follow PTT -CAD with stent to mid LAD in April [address] Vargas Aspirin. Effient. Toprol-XL. Lipitor. -Chronic bladder dysfunction with urinary hesitancy and frequency -COPD in a current smoker DuoNeb 4 times daily. Advair -Chronic nicotine dependence, cigarette smoker Nicotine patch. Patient counseled -Essential hypertension Toprol-XL 50 mg -Hyperlipidemia Lipitor 80 mg -Primary osteoarthritis multiple joints bilaterally Tylenol as needed -Chronic constipation Metamucil -Severe protein calorie malnutrition Ensure. Consult dietitian. -Full code Consult urology, cardiology. Oncology. Care was discussed with the patient. Past Medical History Past Medical History: Coronary Artery Disease (CAD), COPD, Diabetes Mellitus, Hypertension, Myocardial Infarction ([place]), Renal Disease Additional Past Medical History / Comment(s): anxiety Last Myocardial Infarction Date:: April 2023 History of Any Multi-Drug Resistant Organisms: None Reported Past Surgical History: Heart Catheterization With Stent Past Anesthesia/Blood Transfusion Reactions: No Reported Reaction Date of Last Stent Placement:: April 2023 Past Psychological History: Anxiety, Depression Smoking Status: Current every day smoker Past Alcohol Use History: Abuse, Daily, Heavy Past Drug Use History: None Reported Medications and Allergies Home Medications Medication Instructions Recorded Confirmed Type Aspirin 81 mg PO DAILY tab 04/17/23 01/11/24 Rx Atorvastatin [Lipitor] 80 mg PO DAILY 30 Days #30 tab 04/17/23 01/11/24 Rx Prasugrel [Effient] 10 mg PO DAILY 30 Days #30 tab 04/17/23 01/11/24 Rx Fluticasone Propion/Salmeterol 1 puff INHALATION RT-BID PRN 10/19/23 01/11/24 History [Advair 250-50 Diskus] Metoprolol Succinate [Toprol XL] 50 mg PO DAILY 10/19/23 01/11/24 History lisinopriL [Zestril] 2.5 mg PO DAILY #30 tab 10/24/23 01/11/24 Rx Isosorbide Mononitrate ER [Imdur] 30 mg PO DAILY 01/11/24 01/11/24 History Allergies Allergy/AdvReac Type Severity Reaction Status Date / Time Sulfa (Sulfonamide AdvReac increased Verified 01/11/24 09:43 Antibiotics) BP Physical Exam Vitals: Vital Signs Temp Pulse Pulse Resp BP Pulse Ox 01/11/24 10:06 72 18 122/89 100 01/11/24 08:36 61 18 128/95 100 01/11/24 06:41 75 23 123/90 98 01/11/24 06:05 71 96/65 100 01/11/24 05:28 62 19 97/72 100 01/11/24 03:53 75 22 105/85 99 01/11/24 03:17 72 15 105/75 94 L 01/11/24 01:05 76 20 111/84 94 L 01/11/24 00:16 73 22 118/94 94 L 01/10/24 23:10 87 24 111/91 99 01/10/24 23:02 96 01/10/24 23:01 26 H 01/10/24 22:52 97.8 F 101 H 26 H 142/100 99 Intake and Output 01/10/24 01/11/24 01/11/24 22:59 06:59 14:59 Other: Weight 41.368 kg Results CBC & Chem 7: 01/10/24 23:09 01/10/24 23:09 Labs: Abnormal Lab Results - Last 24 Hours (Table) 01/10/24 01/10/24 01/10/24 Range/Units 23:09 23:09 23:09 MCV 102.0 H (80.0-100.0) fL Neutrophils # 7.9 H (1.3-7.7) k/uL APTT 18.2 L (22.0-30.0) sec D-Dimer (<0.60) mg/L FEU BUN 18 H (7-17) mg/dL Glucose 126 H (74-99) mg/dL ALT 37 H (4-34) U/L 01/10/24 Range/Units 23:42 MCV (80.0-100.0) fL Neutrophils # (1.3-7.7) k/uL APTT (22.0-30.0) sec D-Dimer 0.78 H (<0.60) mg/L FEU BUN (7-17) mg/dL Glucose (74-99) mg/dL ALT (4-34) U/L
[2024-01-11] MEDS: SYMBICORT 80-4.5 MCG INHALER INHALATION SCH (19:59)
[2024-01-11] MEDS: RANOLAZINE 500 MG TAB.ER.12H PO SCH (20:06)
[2024-01-11] MEDS: HEPARIN SODIUM 1,000 UN/ML (10ML VL) IV PRN (20:07)
[2024-01-12 10:51] LABS: African American GFR (CKD) >90 (>60 ml/min/1.73 sqM); Anion Gap 8 mmol/L; Blood Urea Nitrogen 21 mg/dL (7-17); Calcium 8.6 mg/dL (8.4-10.2); Carbon Dioxide 19 mmol/L (22-30); Chloride 110 mmol/L (98-107); Glucose 122 mg/dL (74-99); Non-African American GFR(CKD) 88 (>60 ml/min/1.73 sqM); Potassium 5.1 mmol/L (3.5-5.1); Sodium 137 mmol/L (137-145)
[2024-01-12 10:59] VITALS: BMI 18.3
--- NOTE | 2024-01-12 17:07 | P.PN ---
Progress Note - Text Progress Note Date: 01/12/24 Chief Complaint: Chest pain This is a 58-year-old patient of follows with Dr. Mcintyre. Chronic stable medical conditions include COPD, hypertension, hyperlipidemia, chronic kidney disease, anxiety. April 2023 - non-ST elevation [place] had a cardiac catheterization with stent to the mid LAD by Dr. Vargas. Patient decided not to follow-up as she was afraid. October 2023 admitted with acute non-Q wave [place]. cardiac catheterization by Dr. Vargas . 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 Stent could not be placed. Medical management. Imdur and Ranexa was added. Patient now presents with 2 days of chest pain across the chest. Was reluctant to come in. Finally her daughter called 911. Symptoms been getting worse. Short of breath. Breaking out in sweat. Still having chest pain. 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 Daughter she followed up with her finish repair worker. She is afraid of the hospitals. Tired. January 11: Patient seen by Dr. 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 And atrophy.-No further intervention per them at this point. Outpatient follow-up with simple nephrectomy if she desires so. Patient still has some residual chest pain. Remains on IV heparin. Seen by pulmonary.-Follow-up outpatient Active Medications Albuterol/Ipratropium (Ipratropium-Albuterol 3 Ml Neb) 3 ml INHALATION RT-QID [facility] Last Admin: 01/12/24 16:16 Dose: 3 ml Aspirin (Aspirin 81 Mg) 81 mg PO DAILY [facility] Last Admin: 01/12/24 11:09 Dose: 81 mg Atorvastatin Calcium (Atorvastatin 80 Mg Tab) 80 mg PO DAILY [facility] Last Admin: 01/12/24 08:58 Dose: 80 mg Budesonide/Formoterol Fumarate (Symbicort 80-4.5 Mcg Inhaler) 2 puff INHALATION RT-BID [facility] Last Admin: 01/12/24 09:15 Dose: 2 puff Heparin Sodium (Porcine) (Heparin Sodium 1,000 Un/Ml (10ml Vl)) 0 unit IV PER PROTOCOL PRN; Protocol PRN Reason: Low PTT Last Admin: 01/12/24 13:32 Dose: 1,000 unit Sodium Chloride (Saline 0.9%) 1,000 mls @ 130 mls/hr IV .Q7H42M [facility] Last Admin: 01/12/24 11:10 Dose: 130 mls/hr Heparin Sodium/Sodium Chloride (25,000 unit/ Sodium Chloride) 250 mls @ 4.964 mls/hr IV .Q24H [facility]; Protocol Last Titration: 01/12/24 13:42 Dose: 20 units/kg/hr, 8.274 mls/hr Isosorbide Mononitrate (Isosorbide Mononitrate Er 30 Mg Tab.Er.24h) 30 mg PO DAILY [facility] Last Admin: 01/12/24 08:58 Dose: 30 mg Lisinopril (Lisinopril 2.5 Mg Tab) 2.5 mg PO DAILY [facility] Last Admin: 01/12/24 08:58 Dose: 2.5 mg Metoprolol Succinate (Metoprolol Succinate (Er) 50 Mg Tab.Er.24h) 50 mg PO DAILY [facility] Last Admin: 01/12/24 08:58 Dose: 50 mg Naloxone HCl (Naloxone 0.4 Mg/Ml 1 Ml Vial) 0.2 mg IV Q2M PRN PRN Reason: Opioid Reversal Nicotine (Nicotine 7mg/24hr Patch) 1 patch TRANSDERM DAILY [facility] Last Admin: 01/12/24 11:09 Dose: Not Given Prasugrel (Prasugrel 10 Mg Tab) 10 mg PO DAILY [facility] Last Admin: 01/12/24 11:09 Dose: 10 mg Ranolazine (Ranolazine 500 Mg Tab.Er.12h) 500 mg PO Q12HR [facility] Last Admin: 01/12/24 08:58 Dose: 500 mg Social history: Lives alone. Averaged a pack a day for 40 years stopped cut back 2022. Now smoked 1 to 3 cigarettes every other day. Was drinking heavy alcohol in the past. 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 Not currently Physical examination: VITAL SIGNS: 8.2, 66, 17, 141 x 95, 99% room air GENERAL: BMI 18.4, loss of muscle mass subcutaneous fat reclining in bed anxious EYES: Pupils equal. Conjunctiva normal. HEENT: External appearance of nose and ears normal, oral cavity grossly normal. NECK: JVD not raised; masses not palpable. HEART: First and second heart sounds are normal; no edema. LUNGS: Respiratory rate increased, decreased breath sounds. ABDOMEN: Soft, nontender, liver spleen not palpable, no masses palpable. PSYCH: Alert and oriented x3; mood and affect anxiousl. MUSCULOSKELETAL:No Clubbing/cyanosis;muscles-grossly intact. Loss of subcu interstitial muscle mass. Prominent bones. Evidence of OA. INVESTIGATIONS, reviewed in the clinical context: January 09: White count 10.5 hemoglobin 12.8 platelets 308 potassium 4.6 BUN 18 creatinine 0.7 Troponin I 0.025, 0.028 EKG tracing personally reviewed by me-poor R wave progression. Flipped T waves in anterolateral leads. Chest x-ray film personally reviewed by me-hyperinflated lung lopes Chest CTA: No PE. Atrophic left kidney with large cyst causing mass effect on adjacent structures. Bilateral upper lobe pulmonary nodules are new. Assessment and plan: -Unstable angina in a patient with known prior CAD: Slow to respond Aspirin. Beta perla. IV heparin Imdur and Ranexa was prescribed on last admission apparently patient did not take it. Unclear Cardiac catheterization [October 2023]: Severe ostial lesion involving the first diagonal branch likely representing thrombus formation. Unable to be stented.: medical management -Bilateral upper lobe pulmonary nodules Oncology consulted -IV heparin monitoring Follow PTT -Chronic left-sided kidney atrophy Seen by Dr. Ordaz from urology. If patient decides may go for simple nephrectomy if any pain. -CAD with stent to mid LAD in April [address] Vargas Aspirin. Effient. Toprol-XL. Lipitor. -Chronic bladder dysfunction with urinary hesitancy and frequency -COPD in a current smoker DuoNeb 4 times daily. Advair -Chronic nicotine dependence, cigarette smoker Nicotine patch. Patient counseled -Essential hypertension Toprol-XL 50 mg -Hyperlipidemia Lipitor 80 mg -Primary osteoarthritis multiple joints bilaterally Tylenol as needed -Chronic constipation Metamucil -Severe protein calorie malnutrition Ensure. Consult dietitian. -Full code Follow-up with consultants. Continue IV heparin. Past Medical History Past Medical History: Coronary Artery Disease (CAD), COPD, Diabetes Mellitus, Hypertension, Myocardial Infarction ([place]), Renal Disease Additional Past Medical History / Comment(s): anxiety Last Myocardial Infarction Date:: April 2023 History of Any Multi-Drug Resistant Organisms: None Reported Past Surgical History: Heart Catheterization With Stent Past Anesthesia/Blood Transfusion Reactions: No Reported Reaction Date of Last Stent Placement:: April 2023 Past Psychological History: Anxiety, Depression Smoking Status: Current every day smoker Past Alcohol Use History: Abuse, Daily, Heavy Past Drug Use History: None Reported
--- NOTE | 2024-01-12 18:10 | P.CONS ---
History of Present Illness - Reason for Consult Consult date: 01/12/24 metastatic disease Requesting physician: Mario Lewis - Chief Complaint SOB - History of Present Illness Patient is a 58-year-old female with a significant history of COPD and emphysema, and longtime nicotine abuse. She reports smoking 2 packs daily for many years and has been cutting back and is smoking less than 1 pack daily. Consult was placed for bilateral upper pulmonary nodules noted on CT scan. Patient reports she has been having increasing shortness of breath and right- sided chest pain over the last 2 to 3 weeks. Patient denies hemoptysis. Upon admission chest x-ray revealed persistent small amount of airspace opacities over right middle lung zone. CTA chest showing no evidence for pulmonary embolism. Bilateral upper lobe pulmonary nodules, with 9 mm spiculated nodule of right lung apex, other smaller nodules of the right upper lobe measuring about 5-6 mm, and 4-6 mm pleural nodule of posterior left upper lobe. Troponins negative. D-dimer elevated at 0.78. CBC reviewed, WBC 10.5, hemoglobin 12.8, platelets 308,000. Patient is afebrile, SpO2 98% on room air Review of Systems 10 point ROS is negative except as stated in the HPI Past Medical History Past Medical History: Coronary Artery Disease (CAD), COPD, Diabetes Mellitus, Hypertension, Myocardial Infarction ([place]), Renal Disease Additional Past Medical History / Comment(s): anxiety Last Myocardial Infarction Date:: April 2023 History of Any Multi-Drug Resistant Organisms: None Reported Past Surgical History: Heart Catheterization With Stent Past Anesthesia/Blood Transfusion Reactions: No Reported Reaction Date of Last Stent Placement:: April 2023 Past Psychological History: Anxiety, Depression Smoking Status: Current every day smoker Past Alcohol Use History: Abuse, Daily, Heavy Past Drug Use History: None Reported Medications and Allergies Home Medications Medication Instructions Recorded Confirmed Type Aspirin 81 mg PO DAILY tab 04/17/23 01/11/24 Rx Atorvastatin [Lipitor] 80 mg PO DAILY 30 Days #30 tab 04/17/23 01/11/24 Rx Prasugrel [Effient] 10 mg PO DAILY 30 Days #30 tab 04/17/23 01/11/24 Rx Fluticasone Propion/Salmeterol 1 puff INHALATION RT-BID PRN 10/19/23 01/11/24 History [Advair 250-50 Diskus] Metoprolol Succinate [Toprol XL] 50 mg PO DAILY 10/19/23 01/11/24 History lisinopriL [Zestril] 2.5 mg PO DAILY #30 tab 10/24/23 01/11/24 Rx Isosorbide Mononitrate ER [Imdur] 30 mg PO DAILY 01/11/24 01/11/24 History Allergies Allergy/AdvReac Type Severity Reaction Status Date / Time Sulfa (Sulfonamide AdvReac increased Verified 01/11/24 09:43 Antibiotics) BP Physical Exam Vitals: Vital Signs Temp Pulse Pulse Resp BP BP Pulse Ox 01/12/24 09:30 85 01/12/24 09:15 68 98 01/12/24 08:58 17 01/12/24 07:00 98.2 F 66 17 141/95 99 01/12/24 02:01 98.3 F 72 15 128/87 95 01/11/24 20:15 72 01/11/24 20:00 67 01/11/24 19:34 97.3 F L 63 16 115/73 96 01/11/24 15:59 76 01/11/24 15:54 75 01/11/24 14:30 20 01/11/24 13:59 98.5 F 66 17 107/75 95 01/11/24 13:00 54 L 16 146/92 98 01/11/24 12:00 59 L 18 136/100 98 Intake and Output 01/11/24 01/12/24 01/12/24 22:59 06:59 14:59 Intake Total 37.147 54.294 240 Balance 37.147 54.294 240 Intake: Intake, IV Titration 37.147 54.294 Amount Heparin Sod,Pork in 0.45% 37.147 54.294 NaCl 25,000 unit In 0.45 % NaCl 1 250ml.bag @ 12 UNITS/KG/HR 4.964 mls/hr IV .Q24H [facility] Rx#: [id number] Oral 240 Other: Voiding Method Toilet Toilet # Voids 1 3 Weight 41.368 kg - Constitutional General appearance: average body habitus, no acute distress - EENT Eyes: anicteric sclerae, EOMI - Neck Neck: no lymphadenopathy - Respiratory Respiratory: bilateral: diminished (significant diminishment bilaterally ) - Cardiovascular Rhythm: regular Heart sounds: normal: S1, S2 - Gastrointestinal General gastrointestinal: soft, tenderness - Neurologic Neurologic: CNII-XII intact - Musculoskeletal Musculoskeletal: strength equal bilaterally - Psychiatric Psychiatric: A&O x's 3 Results CBC & Chem 7: 01/10/24 23:09 01/12/24 10:00 Labs: Abnormal Lab Results - Last 24 Hours (Table) 01/12/24 01/12/24 Range/Units 03:23 10:00 APTT 32.7 H (22.0-30.0) sec Chloride 110 H (98-107) mmol/L Carbon Dioxide 19 L (22-30) mmol/L BUN 21 H (7-17) mg/dL Glucose 122 H (74-99) mg/dL Chest x-ray: report reviewed CT scan - chest: report reviewed Assessment and Plan (1) COPD (chronic obstructive pulmonary disease) Current Visit: Yes Status: Acute Priority: High Code(s): J44.9 - CHRONIC OBSTRUCTIVE PULMONARY DISEASE, UNSPECIFIED SNOMED Code(s): 69680642 (2) Lung mass Current Visit: Yes Status: Acute Priority: High Code(s): R91.8 - OTHER NONSPECIFIC ABNORMAL FINDING OF LUNG FIELD SNOMED Code(s): 646956749 (3) Tobacco abuse Current Visit: Yes Status: Acute Priority: High Code(s): Z72.0 - TOBACCO USE SNOMED Code(s): 260019368 Plan: Lung nodules, SOB, COPD Significant history COPD and emphysema, and longtime nicotine abuse. Presented with increasing shortness of breath and right-sided chest pain over the last 2 to 3 weeks. Patient denies hemoptysis. -Upon admission chest x-ray revealed persistent small amount of airspace opacities over right middle lung zone. CTA chest showing no evidence for pulmonary embolism. Bilateral upper lobe pulmonary nodules, with 9 mm spiculated nodule of right lung apex, other smaller nodules of the right upper lobe measuring about 5 to 6 mm. And 4-6 mm pleural nodule of posterior left upper lobe. -Discussed results with patient, and concerns for possible malignancy. Discussed nodules are subcentimer, and severe emphysema and infection and inflammation can sometimes cause similar findings on imaging, but due to extensive history of nicotine dependence this would need further workup. Would recommend PET CT upon discharge in the next couple weeks to allow healing from acute condition. May benefit from course of antibiotics -Will establish care in clinic and obtain PET CT, and provide further recommendations pending scan results Patient was agreeable with plan of care attests: I have performed H&P and developed impression and plan of care for patient, discussed with dictator. I agree with dictated note, documented as a scribe
--- NOTE | 2024-01-12 22:25 | CT ---
EXAMINATION TYPE: CT abdomen pelvis w con DATE OF EXAM: 01/12/2024 COMPARISON: None INDICATION: kidney mass DLP: 624 mGycm, Automated exposure control for dose reduction was used. CONTRAST: 100 mL of Isovue 300. Study performed without Oral Contrast TECHNIQUE: Axial images were obtained from above the diaphragm to the pubic rami in the axial plane a t 5 mm thick sections. Reconstructed images are reviewed on the computer in the coronal plane. FINDINGS: Limited CT sections are obtained the lung bases. The lung bases are clear. CT ABDOMEN: Liver: Normal Spleen: Normal Pancreas: Normal Adrenal glands: The adrenal glands are normal. Gallbladder: Normal Kidneys: No masses are evident. There is marked left hydronephrosis. This is stable from 2022. Hydrou reter is not identified. The left renal cortex is thin. Right kidney appears unremarkable. No cysts a re present. Delayed images were obtained through the kidneys, which remain otherwise unremarkable. Aorta: Vascular calcification is within the aorta. Inferior vena cava: Normal. CT PELVIS: Some minimal fluid is within the pelvis. Loops of bowel within the abdomen and pelvis are normal. There are loops of bowel which are incompletely distended or lack oral contrast limiting their evalu ation. Appendix: Normal as visualized. Urinary bladder: Normal. Genitourinary structures: Uterus is unremarkable. Adnexa are normal Osseous structures: No suspicious lytic or sclerotic lesions. IMPRESSION: 1. Marked left hydronephrosis. No discrete mass identified. Findings appear stable from comparison. 2. Small amount of free fluid within the pelvis
[2024-01-13] MEDS: ISOSORBIDE MONONITRATE ER 15 MG TAB PO STA (11:28)
--- NOTE | 2024-01-13 13:13 | P.CRDCN ---
History of Present Illness Consult date: 01/13/24 Reason for Consult (text): Unstable angina History of present illness: History of present illness: This is a 58-year-old female patient of Dr. 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 We have been asked to evaluate the patient for unstable angina. Patient had a recent hospitalization in October of this year at which time she was ruled in for acute coronary event underwent a heart catheterization that revealed patent stent in the LAD with severe disease involving the ostium of the diagonal branch and thrombus formation. Patient was treated medically. Patient presents to the hospital due to right-sided chest pain and shortness of breath that been going on for couple weeks and worsening. She also states she has intermittent episodes of racing heart. Patient has been seen by oncology regarding pulmonary nodules and suspicion for neoplasm. Patient has been seen by urology and discussed options of a simple nephrectomy. EKG sinus rhythm Chest x-ray: Persistent small amount of airspace opacities over right middle lung zone suggest atelectasis, scarring pneumonia versus aspiration. CTA of the chest reveals no pulmonary embolism. No thoracic aortic aneurysm or dissection. Atrophic left kidney with large cyst causing mass effect on the adjacent structures. Bilateral upper lobe pulmonary nodules are new highly suspicious for primary neoplasm versus metastasis Renal ultrasound reveals lobular irregular cystlike area left kidney compatible with severe hydro nephrosis. CT of the abdomen pelvis with contrast revealed marked left hydronephrosis. No discrete mass identified. Findings appear stable from comparison. Small amount of free fluid within the pelvis. WBC 10.5, hemoglobin 12.8. INR 1.1. D-dimer 0.78. CO2 19, BUN 21 creatinine 0.75, potassium 5.1. Blood sugar 122. Troponin negative x 2. ALT 37 otherwise liver function test are normal. Magnesium 1.7. Home cardiac medications: Aspirin 81 mg daily, atorvastatin 80 mg daily, Imdur 30 mg daily, lisinopril 2.5 mg daily, Toprol XL 50 mg daily, Effient 10 mg daily Cardiac catheterization performed 10/19/2023 revealed patent stent in the LAD. Severe disease involving the ostial first diagonal. Echocardiogram performed 10/20/2023 revealed EF of 15% moderate TR dilated RV. Review Of Systems: At the time of my exam: CONSTITUTIONAL: Denies fever or chills. HEENT: Denies blurred vision, vision changes, or eye pain. Denies hemoptysis CARDIOVASCULAR: Denies chest pain. Denies orthopnea. Denies PND. Denies palpitations RESPIRATORY: Denies shortness of breath. GASTROINTESTINAL: Denies abdominal pain. Denies nausea or vomiting. HEMATOLOGIC: Denies bleeding disorders. GENITOURINARY: Denies any blood in urine. SKIN: Denies pruitis. Denies rash. Physical examination: Gen: This is a 58-year-old female in no acute distress VS: reviewed HEENT: Head is atraumatic, normocephalic. Pupils equal, round. Sclerae is anicteric. NECK: Supple. No JVD. LUNGS: Bilateral wheeze. No intercostal retractions. HEART: Regular rate and rhythm. No murmur. ABDOMEN: Soft No tenderness. EXTREMITIES: No pedal edema. No calf tenderness. NEUROLOGICAL: Patient is awake, alert and oriented x3. Assessment: Chest pain, acute coronary syndrome ruled out Ischemic cardiomyopathy and possible component of nonischemic cardiomyopathy due to tachycardia and hypertension No sign of overt heart failure Coronary artery disease with prior stenting of the LAD Bilateral upper lobe lung nodules suspicious for neoplasm/mets Severe left-sided hydronephrosisDyslipidemia COPD Tobacco use and dependence Plan: Resume patient's home cardiac medications Discontinue Ranexa Discontinue IV fluids Obtain BNP Add Farxiga 10 mg daily Obtain limited echocardiogram to evaluate LV function Smoking cessation Further recommendations to follow based upon clinical course Thank you kindly for this consultation. Nurse practitioner note has been reviewed, I agree with documented findings and plan of care. Patient was seen and examined. Past Medical History Past Medical History: Coronary Artery Disease (CAD), COPD, Diabetes Mellitus, Hypertension, Myocardial Infarction (VT), Renal Disease Additional Past Medical History / Comment(s): anxiety Last Myocardial Infarction Date:: April 2023 History of Any Multi-Drug Resistant Organisms: None Reported Past Surgical History: Heart Catheterization With Stent Past Anesthesia/Blood Transfusion Reactions: No Reported Reaction Date of Last Stent Placement:: April 2023 Past Psychological History: Anxiety, Depression Smoking Status: Current every day smoker Past Alcohol Use History: Abuse, Daily, Heavy Past Drug Use History: None Reported Medications and Allergies Home Medications Medication Instructions Recorded Confirmed Type Aspirin 81 mg PO DAILY tab 04/17/23 01/11/24 Rx Atorvastatin [Lipitor] 80 mg PO DAILY 30 Days #30 tab 04/17/23 01/11/24 Rx Prasugrel [Effient] 10 mg PO DAILY 30 Days #30 tab 04/17/23 01/11/24 Rx Fluticasone Propion/Salmeterol 1 puff INHALATION RT-BID PRN 10/19/23 01/11/24 History [Advair 250-50 Diskus] Metoprolol Succinate [Toprol XL] 50 mg PO DAILY 10/19/23 01/11/24 History lisinopriL [Zestril] 2.5 mg PO DAILY #30 tab 10/24/23 01/11/24 Rx Isosorbide Mononitrate ER [Imdur] 30 mg PO DAILY 01/11/24 01/11/24 History Allergies Allergy/AdvReac Type Severity Reaction Status Date / Time Sulfa (Sulfonamide AdvReac increased Verified 01/11/24 09:43 Antibiotics) BP Physical Exam Vitals: Vital Signs Temp Pulse Pulse Resp BP Pulse Ox 01/13/24 09:01 92 01/13/24 08:43 91 98 01/13/24 07:23 97.7 F 96 49 H 159/91 93 L 01/13/24 02:00 97.3 F L 78 16 137/102 99 01/12/24 20:00 97.5 F L 82 16 132/73 97 01/12/24 16:28 77 01/12/24 16:16 80 01/12/24 14:30 98 F 69 19 114/76 97 01/12/24 14:00 19 01/12/24 12:28 70 01/12/24 12:16 72 Intake and Output 01/12/24 01/13/24 01/13/24 22:59 06:59 14:59 Intake Total 71.708 Balance 71.708 Intake: Intake, IV Titration 71.708 Amount Heparin Sod,Pork in 0.45% 71.708 NaCl 25,000 unit In 0.45 % NaCl 1 250ml.bag @ 12 UNITS/KG/HR 4.964 mls/hr IV .[facility]H [facility] Rx#: [id number] Other: Voiding Method Toilet Toilet # Voids 2 1 Results 01/10/24 23:09 01/12/24 10:00 Coagulation 01/12/24 01/12/24 01/13/24 Range/Units 12:19 20:12 06:54 APTT 42.6 H 47.5 H 47.5 H (22.0-30.0) sec Comprehensive Metabolic Panel 01/12/24 Range/Units 10:00 Sodium 137 (137-145) mmol/L Potassium 5.1 (3.5-5.1) mmol/L Chloride 110 H (98-107) mmol/L Carbon Dioxide 19 L (22-30) mmol/L BUN 21 H (7-17) mg/dL Creatinine 0.75 (0.52-1.04) mg/dL Glucose 122 H (74-99) mg/dL Calcium 8.6 (8.4-10.2) mg/dL Current Medications Generic Name Dose Route Start Last Admin Trade Name Freq PRN Reason Stop Dose Admin Albuterol/Ipratropium 3 ml 01/11/24 12:02 01/13/24 08:43 Ipratropium-Albuterol 3 Ml Neb INHALATION 3 ml RT-QID [facility] Administration Aspirin 81 mg 01/11/24 12:15 01/12/24 11:09 Aspirin 81 Mg PO 81 mg DAILY [facility] Administration Atorvastatin Calcium 80 mg 01/11/24 10:30 01/12/24 08:58 Atorvastatin 80 Mg Tab PO 80 mg DAILY [facility] Administration Budesonide/Formoterol Fumarate 2 puff 01/11/24 20:00 01/13/24 08:43 Symbicort 80-4.5 Mcg Inhaler INHALATION 2 puff RT-BID [facility] Administration Heparin Sodium (Porcine) 0 unit 01/11/24 19:55 01/12/24 13:32 Heparin Sodium 1,000 Un/Ml (10ml Vl) IV 1,000 unit PER PROTOCOL PRN Administration Low PTT Protocol Sodium Chloride 1,000 mls @ 130 mls/hr 01/11/24 03:45 01/13/24 03:32 Saline 0.9% IV Not Given .Q7H42M [facility] Heparin Sodium/Sodium Chloride 250 mls @ 4.964 mls/hr 01/11/24 12:15 01/12/24 22:22 25,000 unit/ Sodium Chloride IV 20 units/kg/hr .Q24H [facility] 8.274 mls/hr Administration Protocol 12 UNITS/KG/HR Isosorbide Mononitrate 30 mg 01/11/24 10:30 01/12/24 08:58 Isosorbide Mononitrate Er 30 Mg Tab.Er.24h PO 30 mg DAILY [facility] Administration Lisinopril 2.5 mg 01/13/24 21:00 Lisinopril 2.5 Mg Tab PO HS [facility] Metoprolol Succinate 50 mg 01/11/24 10:30 01/12/24 08:58 Metoprolol Succinate (Er) 50 Mg Tab.Er.24h PO 50 mg DAILY [facility] Administration Naloxone HCl 0.2 mg 01/11/24 06:06 Naloxone 0.4 Mg/Ml 1 Ml Vial IV Q2M PRN Opioid Reversal Nicotine 1 patch 01/11/24 12:15 01/12/24 11:09 Nicotine 7mg/24hr Patch TRANSDERM Not Given DAILY [facility] Prasugrel 10 mg 01/11/24 10:45 01/12/24 11:09 Prasugrel 10 Mg Tab PO 10 mg DAILY [facility] Administration Ranolazine 500 mg 01/11/24 21:00 01/12/24 22:22 Ranolazine 500 Mg Tab.Er.12h PO 500 mg Q12HR [facility] Administration Intake and Output 01/12/24 01/13/24 01/13/24 22:59 06:59 14:59 Intake Total 71.708 Balance 71.708 Intake: Intake, IV Titration 71.708 Amount Heparin Sod,Pork in 0.45% 71.708 NaCl 25,000 unit In 0.45 % NaCl 1 250ml.bag @ 12 UNITS/KG/HR 4.964 mls/hr IV .Q24H [facility] Rx#: [id number] Other: Voiding Method Toilet Toilet # Voids 2 1 01/10/24 23:09 01/12/24 10:00
[2024-01-13] MEDS: DAPAGLIFLOZIN PROPANEDIOL 10 MG TABLET PO SCH (15:14)
--- NOTE | 2024-01-13 15:58 | P.PN ---
Progress Note - Text Progress Note Date: 01/13/24 Chief Complaint: Chest pain This is a 58-year-old patient of follows with Dr. Mcintyre. Chronic stable medical conditions include COPD, hypertension, hyperlipidemia, chronic kidney disease, anxiety. April 2023 - non-ST elevation DE had a cardiac catheterization with stent to the mid LAD by Dr. Vargas. Patient decided not to follow-up as she was afraid. October 2023 admitted with acute non-Q wave DE. cardiac catheterization by Dr. Vargas . 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 Stent could not be placed. Medical management. Imdur and Ranexa was added. Patient now presents with 2 days of chest pain across the chest. Was reluctant to come in. Finally her daughter called 911. Symptoms been getting worse. Short of breath. Breaking out in sweat. Still having chest pain. Patient states the above 2 medications she did not fiber picker from the pharmacy. Daughter she followed up with her worship director. She is afraid of the hospitals. Tired. January 11: Patient seen by Dr. 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 And atrophy.-No further intervention per them at this point. Outpatient follow-up with simple nephrectomy if she desires so. Patient still has some residual chest pain. Remains on IV heparin. Seen by pulmonary.-Follow-up outpatient January 12: Remains on IV heparin. Decreased but still present some chest pain. Patient was given extra dose of Imdur 15 mg today. Later seen by cardiology. IV heparin discontinued. Ranexa also stopped by cardiology. Christine added. Active Medications Albuterol/Ipratropium (Ipratropium-Albuterol 3 Ml Neb) 3 ml INHALATION RT-QID REPLACED BY [facility] Last Admin: 01/13/24 11:49 Dose: 3 ml Aspirin (Aspirin 81 Mg) 81 mg PO DAILY REPLACED BY [facility] Last Admin: 01/13/24 09:59 Dose: 81 mg Atorvastatin Calcium (Atorvastatin 80 Mg Tab) 80 mg PO DAILY REPLACED BY [facility] Last Admin: 01/13/24 09:59 Dose: 80 mg Budesonide/Formoterol Fumarate (Symbicort 80-4.5 Mcg Inhaler) 2 puff INHALATION RT-BID REPLACED BY [facility] Last Admin: 01/13/24 08:43 Dose: 2 puff Dapagliflozin (Dapagliflozin Propanediol 10 Mg Tablet) 10 mg PO DAILY REPLACED BY [facility] Last Admin: 01/13/24 15:14 Dose: 10 mg Isosorbide Mononitrate (Isosorbide Mononitrate Er 30 Mg Tab.Er.24h) 30 mg PO DAILY REPLACED BY [facility] Lisinopril (Lisinopril 2.5 Mg Tab) 2.5 mg PO HS REPLACED BY [facility] Metoprolol Succinate (Metoprolol Succinate (Er) 50 Mg Tab.Er.24h) 50 mg PO DAILY REPLACED BY [facility] Last Admin: 01/13/24 09:59 Dose: 50 mg Naloxone HCl (Naloxone 0.4 Mg/Ml 1 Ml Vial) 0.2 mg IV Q2M PRN PRN Reason: Opioid Reversal Nicotine (Nicotine 7mg/24hr Patch) 1 patch TRANSDERM DAILY REPLACED BY [facility] Last Admin: 01/13/24 10:00 Dose: Not Given Prasugrel (Prasugrel 10 Mg Tab) 10 mg PO DAILY REPLACED BY [facility] Last Admin: 01/13/24 10:00 Dose: 10 mg Social history: Lives alone. Averaged a pack a day for 40 years stopped cut back 2022. Now smoked 1 to 3 cigarettes every other day. Was drinking heavy alcohol in the past. 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 Not currently Physical examination: VITAL SIGNS: 97.7, 80, 19, 121 x 87, 97% room air GENERAL: BMI 18.4, loss of muscle mass subcutaneous fat reclining in bed anxious EYES: Pupils equal. Conjunctiva normal. HEENT: External appearance of nose and ears normal, oral cavity grossly normal. NECK: JVD not raised; masses not palpable. HEART: First and second heart sounds are normal; no edema. LUNGS: Respiratory rate increased, decreased breath sounds. ABDOMEN: Soft, nontender, liver spleen not palpable, no masses palpable. PSYCH: Alert and oriented x3; mood and affect anxiousl. MUSCULOSKELETAL:No Clubbing/cyanosis;muscles-grossly intact. Loss of subcu interstitial muscle mass. Prominent bones. Evidence of OA. INVESTIGATIONS, reviewed in the clinical context: Influenza type A, type B, RSV, COVID-19: Not detected January 09: White count 10.5 hemoglobin 12.8 platelets 308 potassium 4.6 BUN 18 creatinine 0.7 Troponin I 0.025, 0.028 EKG tracing personally reviewed by me-poor R wave progression. Flipped T waves in anterolateral leads. Chest x-ray film personally reviewed by me-hyperinflated lung lopes Chest CTA: No PE. Atrophic left kidney with large cyst causing mass effect on adjacent structures. Bilateral upper lobe pulmonary nodules are new. Assessment and plan: -Unstable angina in a patient with known prior CAD: Aspirin. Beta perla. Imdur and Ranexa was prescribed on last admission apparently patient did not take it. Unclear Cardiac catheterization [October 2023]: Severe ostial lesion involving the first diagonal branch likely representing thrombus formation. Unable to be stented.: medical management Ranexa discontinued by cardiology. IV heparin stopped today. -Bilateral upper lobe pulmonary nodules Oncology following -IV heparin monitoring-discontinued Follow PTT -Chronic left-sided kidney atrophy from UPJ obstruction with significantly dilating collecting system with atrophic parenchyma. Seen by Dr. Ordaz from urology. If patient decides may go for simple nephrectomy if any pain. -CAD with stent to mid LAD in April [address] Vargas Aspirin. Effient. Toprol-XL. Lipitor. -Chronic bladder dysfunction with urinary hesitancy and frequency -COPD in a current smoker DuoNeb 4 times daily. Advair -Chronic nicotine dependence, cigarette smoker Nicotine patch. Patient counseled -Essential hypertension Toprol-XL 50 mg -Hyperlipidemia Lipitor 80 mg -Primary osteoarthritis multiple joints bilaterally Tylenol as needed -Chronic constipation Metamucil -Severe protein calorie malnutrition Ensure. Consult dietitian. -Full code Follow cardiology recommendations. Discussed with patient. Past Medical History Past Medical History: Coronary Artery Disease (CAD), COPD, Diabetes Mellitus, Hypertension, Myocardial Infarction (DE), Renal Disease Additional Past Medical History / Comment(s): anxiety Last Myocardial Infarction Date:: April 2023 History of Any Multi-Drug Resistant Organisms: None Reported Past Surgical History: Heart Catheterization With Stent Past Anesthesia/Blood Transfusion Reactions: No Reported Reaction Date of Last Stent Placement:: April 2023 Past Psychological History: Anxiety, Depression Smoking Status: Current every day smoker Past Alcohol Use History: Abuse, Daily, Heavy Past Drug Use History: None Reported
--- NOTE | 2024-01-13 17:40 | CA ---
Transthoracic Echo Report Name: Jessie Tobias Age: 58 Gender: F : 1965 Exam Date: 01/13/2024 14:14 Exam Location: [facility] Ht (in): 24 Wt (lb): 201 Ordering Physician: Jemma Mckeon Attending/Referring Phys: Manager Operations [employer] Proc[employer]ment Daniel Murray RDCS Procedure CPT: Indications: LVF ef was 15 Cardiac Hx: Technical Quality: Contrast 1: Total Dose (mL): Contrast 2: Total Dose (mL): MEASUREMENTS (Male / Female) Normal Values FINDINGS Left Ventricle Left ventricular ejection fraction is estimated at 15 %. Predominantly apical hypokinesis with basal sparring. Right Ventricle Right Atrium Left Atrium Mitral Valve Aortic Valve Tricuspid Valve Pulmonic Valve Pericardium Aorta CONCLUSIONS Left ventricular EF 15% with apical hypokinesis and basal sparing. May be consistent with severe Takotsubo's cardiomyopathy versus ischemic Previewed by: Dr. Aram Cortes DO (Electronically Signed) Final Date: 13 January 2024 17:40
[2024-01-14] MEDS ORDERED: ISOSORBIDE MONONITRATE ER 15 MG TAB PO SCH (09:00)
[2024-01-14] MEDS: ISOSORBIDE MONONITRATE ER 30 MG TAB.ER.24H PO SCH (09:23)
--- NOTE | 2024-01-14 09:30 | PN ---
PROGRESS NOTE SUBJECTIVE: Jessie is a 58-year-old lady with concern for metastatic cancer, who is admitted to hospital with chest pain and ruled out for myocardial infarction. She has known CAD and is in medical therapy. An echocardiogram on this admission revealed severe LV systolic dysfunction. OBJECTIVE: GENERAL: This morning, she appears comfortable at rest. VITAL SIGNS: Stable. CHEST: Reveals good air entry bilaterally. HEART: Reveals first and second heart sounds. No gallop. EXTREMITIES: Did not reveal any edema. Peripheral pulses are felt. The patient's chest pain seems musculoskeletal. ASSESSMENT: 1. Coronary artery disease. 2. Cardiomyopathy with severe LV systolic dysfunction. 3. Possible metastatic cancer. PLAN: I will continue her on aggressive medical therapy including aspirin, Lipitor, Imdur, Zestril, Toprol, and Effient. The patient had a stent in mid LAD. MMODL / IJN: [id number] /
--- NOTE | 2024-01-14 16:43 | P.PN ---
Progress Note - Text Progress Note Date: 01/14/24 Chief Complaint: Chest pain This is a 58-year-old patient of follows with Dr. Mcintyre. Chronic stable medical conditions include COPD, hypertension, hyperlipidemia, chronic kidney disease, anxiety. April 2023 - non-ST elevation [place] had a cardiac catheterization with stent to the mid LAD by Dr. Vargas. Patient decided not to follow-up as she was afraid. October 2023 admitted with acute non-Q wave [place]. cardiac catheterization by Dr. Vargas . 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 Stent could not be placed. Medical management. Imdur and Ranexa was added. Patient now presents with 2 days of chest pain across the chest. Was reluctant to come in. Finally her daughter called 911. Symptoms been getting worse. Short of breath. Breaking out in sweat. Still having chest pain. 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 Daughter she followed up with her food safety director. She is afraid of the hospitals. Tired. January 11: Patient seen by Dr. 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 And atrophy.-No further intervention per them at this point. Outpatient follow-up with simple nephrectomy if she desires so. Patient still has some residual chest pain. Remains on IV heparin. Seen by pulmonary.-Follow-up outpatient January 12: Remains on IV heparin. Decreased but still present some chest pain. Patient was given extra dose of Imdur 15 mg today. Later seen by cardiology. IV heparin discontinued. Ranexa also stopped by cardiology. Farxiga added. May 15: Still has some wheezing shortness of breath. Very slight chest pain. Farxiga was added by cardiology yesterday. Will increase Imdur to 45 mg. Active Medications Albuterol/Ipratropium (Ipratropium-Albuterol 3 Ml Neb) 3 ml INHALATION RT-QID [facility] Last Admin: 01/14/24 15:35 Dose: 3 ml Aspirin (Aspirin 81 Mg) 81 mg PO DAILY [facility] Last Admin: 01/14/24 09:22 Dose: 81 mg Atorvastatin Calcium (Atorvastatin 80 Mg Tab) 80 mg PO DAILY [facility] Last Admin: 01/14/24 09:23 Dose: 80 mg Budesonide/Formoterol Fumarate (Symbicort 80-4.5 Mcg Inhaler) 2 puff INHALATION RT-BID [facility] Last Admin: 01/14/24 08:31 Dose: 2 puff Dapagliflozin (Dapagliflozin Propanediol 10 Mg Tablet) 10 mg PO DAILY [facility] Last Admin: 01/14/24 09:23 Dose: 10 mg Lisinopril (Lisinopril 2.5 Mg Tab) 2.5 mg PO HS [facility] Last Admin: 01/13/24 20:48 Dose: 2.5 mg Metoprolol Succinate (Metoprolol Succinate (Er) 50 Mg Tab.Er.24h) 50 mg PO DAILY [facility] Last Admin: 01/14/24 09:23 Dose: 50 mg Naloxone HCl (Naloxone 0.4 Mg/Ml 1 Ml Vial) 0.2 mg IV Q2M PRN PRN Reason: Opioid Reversal Nicotine (Nicotine 7mg/24hr Patch) 1 patch TRANSDERM DAILY [facility] Last Admin: 01/14/24 09:23 Dose: Not Given Prasugrel (Prasugrel 10 Mg Tab) 10 mg PO DAILY [facility] Last Admin: 01/14/24 09:23 Dose: 10 mg Social history: Lives alone. Averaged a pack a day for 40 years stopped cut back 2022. Now smoked 1 to 3 cigarettes every other day. Was drinking heavy alcohol in the past. 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 Not currently Physical examination: VITAL SIGNS: 97.7, 96, 20, 159/91, 93% room air GENERAL:, loss of muscle mass subcutaneous fat sitting up in bed EYES: Pupils equal. Conjunctiva normal. HEENT: External appearance of nose and ears normal, oral cavity grossly normal. NECK: JVD not raised; masses not palpable. HEART: First and second heart sounds are normal; no edema. LUNGS: Respiratory rate increased, decreased breath sounds. Some wheezing ABDOMEN: Soft, nontender, liver spleen not palpable, no masses palpable. PSYCH: Alert and oriented x3; mood and affect anxiousl. MUSCULOSKELETAL:No Clubbing/cyanosis;muscles-grossly intact. Loss of subcu interstitial muscle mass. Prominent bones. Evidence of OA. INVESTIGATIONS, reviewed in the clinical context: Influenza type A, type B, RSV, COVID-19: Not detected January 09: White count 10.5 hemoglobin 12.8 platelets 308 potassium 4.6 BUN 18 creatinine 0.7 Troponin I 0.025, 0.028 EKG tracing personally reviewed by me-poor R wave progression. Flipped T waves in anterolateral leads. Chest x-ray film personally reviewed by me-hyperinflated lung lopes Chest CTA: No PE. Atrophic left kidney with large cyst causing mass effect on adjacent structures. Bilateral upper lobe pulmonary nodules are new. Assessment and plan: -Unstable angina in a patient with known prior CAD: Aspirin. Beta perla. Imdur and Ranexa was prescribed on last admission apparently patient did not take it. Unclear Cardiac catheterization [October 2023]: Severe ostial lesion involving the first diagonal branch likely representing thrombus formation. Unable to be stented.: medical management Ranexa discontinued by cardiology. IV heparin discontinued Increase Imdur to 45 mg a day -Bilateral upper lobe pulmonary nodules Oncology following -IV heparin monitoring-discontinued Follow PTT -Chronic left-sided kidney atrophy from UPJ obstruction with significantly dilating collecting system with atrophic parenchyma. Seen by Dr. Ordaz from urology. If patient decides may go for simple nephrectomy if any pain. -CAD with stent to mid LAD in April [address] Vargas Aspirin. Effient. Toprol-XL. Lipitor. -Chronic bladder dysfunction with urinary hesitancy and frequency -COPD in a current smoker DuoNeb 4 times daily. Advair -Chronic nicotine dependence, cigarette smoker Nicotine patch. Patient counseled -Essential hypertension Toprol-XL 50 mg -Hyperlipidemia Lipitor 80 mg -Primary osteoarthritis multiple joints bilaterally Tylenol as needed -Chronic constipation Metamucil -Severe protein calorie malnutrition Ensure. Consult dietitian. -Full code Discussed with patient. Continue current medication treatment plan. Past Medical History Past Medical History: Coronary Artery Disease (CAD), COPD, Diabetes Mellitus, Hypertension, Myocardial Infarction ([place]), Renal Disease Additional Past Medical History / Comment(s): anxiety Last Myocardial Infarction Date:: April 2023 History of Any Multi-Drug Resistant Organisms: None Reported Past Surgical History: Heart Catheterization With Stent Past Anesthesia/Blood Transfusion Reactions: No Reported Reaction Date of Last Stent Placement:: April 2023 Past Psychological History: Anxiety, Depression Smoking Status: Current every day smoker Past Alcohol Use History: Abuse, Daily, Heavy Past Drug Use History: None Reported
[2024-01-15] MEDS: ISOSORBIDE MONONITRATE ER 15 MG TAB PO SCH (08:52)
--- NOTE | 2024-01-15 13:24 | P.PN ---
Progress Note - Text Progress Note Date: 01/15/24 Chief Complaint: Chest pain This is a 58-year-old patient of follows with Dr. Mcintyre. Chronic stable medical conditions include COPD, hypertension, hyperlipidemia, chronic kidney disease, anxiety. April 2023 - non-ST elevation [place] had a cardiac catheterization with stent to the mid LAD by Dr. Vargas. Patient decided not to follow-up as she was afraid. October 2023 admitted with acute non-Q wave [place]. cardiac catheterization by Dr. Vargas . 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 Stent could not be placed. Medical management. Imdur and Ranexa was added. Patient now presents with 2 days of chest pain across the chest. Was reluctant to come in. Finally her daughter called 911. Symptoms been getting worse. Short of breath. Breaking out in sweat. Still having chest pain. Patient states the above 2 medications she did not pick up worker from the pharmacy. Daughter she followed up with her gas collection system operator. She is afraid of the hospitals. Tired. January 11: Patient seen by Dr. 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 And atrophy.-No further intervention per them at this point. Outpatient follow-up with simple nephrectomy if she desires so. Patient still has some residual chest pain. Remains on IV heparin. Seen by pulmonary.-Follow-up outpatient January 12: Remains on IV heparin. Decreased but still present some chest pain. Patient was given extra dose of Imdur 15 mg today. Later seen by cardiology. IV heparin discontinued. Ranexa also stopped by cardiology. Farxiga added. May 15: Still has some wheezing shortness of breath. Very slight chest pain. Farxiga was added by cardiology yesterday. Will increase Imdur to 45 mg. May 16: Chest pain better. Breathing better. Received Imdur 45 mg today. Told to increase activity. Again smoke cessation discussed with the patient. Active Medications Albuterol/Ipratropium (Ipratropium-Albuterol 3 Ml Neb) 3 ml INHALATION RT-QID [facility] Last Admin: 01/15/24 11:51 Dose: 3 ml Aspirin (Aspirin 81 Mg) 81 mg PO DAILY [facility] Last Admin: 01/15/24 08:51 Dose: 81 mg Atorvastatin Calcium (Atorvastatin 80 Mg Tab) 80 mg PO DAILY [facility] Last Admin: 01/15/24 08:52 Dose: 80 mg Budesonide/Formoterol Fumarate (Symbicort 80-4.5 Mcg Inhaler) 2 puff INHALATION RT-BID [facility] Last Admin: 01/15/24 08:21 Dose: 2 puff Dapagliflozin (Dapagliflozin Propanediol 10 Mg Tablet) 10 mg PO DAILY [facility] Last Admin: 01/15/24 08:52 Dose: 10 mg Isosorbide Mononitrate (Isosorbide Mononitrate Er 15 Mg Tab) 45 mg PO DAILY [facility] Last Admin: 01/15/24 08:52 Dose: 45 mg Lisinopril (Lisinopril 2.5 Mg Tab) 2.5 mg PO HS [facility] Last Admin: 01/14/24 21:38 Dose: 2.5 mg Metoprolol Succinate (Metoprolol Succinate (Er) 50 Mg Tab.Er.24h) 50 mg PO DAILY [facility] Last Admin: 01/15/24 08:52 Dose: 50 mg Naloxone HCl (Naloxone 0.4 Mg/Ml 1 Ml Vial) 0.2 mg IV Q2M PRN PRN Reason: Opioid Reversal Nicotine (Nicotine 7mg/24hr Patch) 1 patch TRANSDERM DAILY [facility] Last Admin: 01/15/24 08:48 Dose: Not Given Prasugrel (Prasugrel 10 Mg Tab) 10 mg PO DAILY [facility] Last Admin: 01/15/24 10:38 Dose: 10 mg Social history: Lives alone. Averaged a pack a day for 40 years stopped cut back 2022. Now smoked 1 to 3 cigarettes every other day. Was drinking heavy alcohol in the past. 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 Conjunctiva normal. HEENT: External appearance of nose and ears normal, oral cavity grossly normal. NECK: JVD not raised; masses not palpable. HEART: First and second heart sounds are normal; no edema. LUNGS: Respiratory rate increased, decreased breath sounds. Some wheezing: Better ABDOMEN: Soft, nontender, liver spleen not palpable, no masses palpable. PSYCH: Alert and oriented x3; mood and affect anxiousl. MUSCULOSKELETAL:No Clubbing/cyanosis;muscles-grossly intact. Loss of subcu interstitial muscle mass. Prominent bones. Evidence of OA. INVESTIGATIONS, reviewed in the clinical context: Influenza type A, type B, RSV, COVID-19: Not detected January 09: White count 10.5 hemoglobin 12.8 platelets 308 potassium 4.6 BUN 18 creatinine 0.7 Troponin I 0.025, 0.028 EKG tracing personally reviewed by me-poor R wave progression. Flipped T waves in anterolateral leads. Chest x-ray film personally reviewed by me-hyperinflated lung lopes Chest CTA: No PE. Atrophic left kidney with large cyst causing mass effect on adjacent structures. Bilateral upper lobe pulmonary nodules are new. Assessment and plan: -Unstable angina in a patient with known prior CAD: Aspirin. Beta perla. Imdur and Ranexa was prescribed on last admission apparently patient did not take it. Unclear Cardiac catheterization [October 2023]: Severe ostial lesion involving the first diagonal branch likely representing thrombus formation. Unable to be stented.: medical management Ranexa discontinued by cardiology. IV heparin discontinued Increase Imdur to 45 mg a day -Bilateral upper lobe pulmonary nodules Oncology following -IV heparin monitoring-discontinued Follow PTT -Chronic left-sided kidney atrophy from UPJ obstruction with significantly dilating collecting system with atrophic parenchyma. Seen by Dr. Ordaz from urology. If patient decides may go for simple nephrectomy if any pain. -CAD with stent to mid LAD in April [address] Vargas Aspirin. Effient. Toprol-XL. Lipitor. -Chronic bladder dysfunction with urinary hesitancy and frequency -COPD in a current smoker DuoNeb 4 times daily. Advair -Chronic nicotine dependence, cigarette smoker Nicotine patch. Patient counseled -Essential hypertension Toprol-XL 50 mg -Hyperlipidemia Lipitor 80 mg -Primary osteoarthritis multiple joints bilaterally Tylenol as needed -Chronic constipation Metamucil -Severe protein calorie malnutrition Ensure. Consult dietitian. -Full code Improvement. Patient again counseled about smoking. Continue current meds. Hopefully home tomorrow. Past Medical History Past Medical History: Coronary Artery Disease (CAD), COPD, Diabetes Mellitus, Hypertension, Myocardial Infarction ([place]), Renal Disease Additional Past Medical History / Comment(s): anxiety Last Myocardial Infarction Date:: April 2023 History of Any Multi-Drug Resistant Organisms: None Reported Past Surgical History: Heart Catheterization With Stent Past Anesthesia/Blood Transfusion Reactions: No Reported Reaction Date of Last Stent Placement:: April 2023 Past Psychological History: Anxiety, Depression Smoking Status: Current every day smoker Past Alcohol Use History: Abuse, Daily, Heavy Past Drug Use History: None Reported
[2024-01-15 22:31] VITALS: RESP 16
[2024-01-16 06:14] LABS: African American GFR (CKD) 72 (>60 ml/min/1.73 sqM); Anion Gap 4 mmol/L; Blood Urea Nitrogen 17 mg/dL (7-17); Calcium 9.2 mg/dL (8.4-10.2); Carbon Dioxide 28 mmol/L (22-30); Chloride 108 mmol/L (98-107); Glucose 98 mg/dL (74-99); Non-African American GFR(CKD) 62 (>60 ml/min/1.73 sqM); Sodium 140 mmol/L (137-145)
[2024-01-16 08:02] VITALS: BP 125/74; TEMP 97.5
[2024-01-16 12:20] VITALS: PULSE 73
[2024-01-16] MEDS: TAMSULOSIN 0.4 MG CAP.ER.24H PO STA (12:23)
--- NOTE | 2024-01-16 19:35 | P.PN ---
Subjective Progress Note Date: 01/16/24 Principal diagnosis: Metastatic disease C/O abd fullness, tops of legs, waist, low back. Denies SOB, her cough is harsh, congested sounding, she is not expectorating much. Objective - Vital Signs Vital signs: Vital Signs Temp 97.5 F L 01/16/24 07:00 Pulse 71 01/16/24 08:56 Resp 16 01/16/24 07:00 BP 125/74 01/16/24 07:00 Pulse Ox 97 01/16/24 08:46 FiO2 Intake & Output 01/15/24 01/16/24 01/16/24 18:59 06:59 18:59 Intake Total 180 Output Total 200 Balance -20 Weight 40.7 kg Intake: Oral 180 Output: Urine 200 Other: Voiding Method Toilet # Voids 1 1 - Constitutional General appearance: Present: average body habitus, cooperative, no acute distress - EENT Eyes: Present: anicteric sclerae, EOMI ENT: Present: hearing grossly normal - Respiratory Respiratory: bilateral: rhonchi (some clear with cough) - Cardiovascular Rhythm: regular Abnormal Heart Sounds: Absent: systolic murmur, diastolic murmur, rub, S3 Gallop, S4 Gallop, click, other - Peripheral edema leg Peripheral Edema: bilateral: None - Gastrointestinal General gastrointestinal: Present: normal bowel sounds, soft - Neurologic Neurologic: Present: CNII-XII intact - Musculoskeletal Musculoskeletal: Present: strength equal bilaterally - Psychiatric Psychiatric: Present: A&O x's 3, appropriate affect, intact judgment & insight - Labs CBC & Chem 7: 01/10/24 23:09 01/16/24 05:43 Labs: Abnormal Lab Results - Last 24 Hours (Table) 01/16/24 Range/Units 05:43 Chloride 108 H (98-107) mmol/L Assessment and Plan Plan: Lung nodules -CXR reports persistent small amount of airspace opacities over right middle lung zone. CTA chest, no evidence for pulmonary embolism. Bilateral upper lobe pulmonary nodules, with 9 mm spiculated nodule of right lung apex, other smaller nodules of the right upper lobe measuring about 5 to 6 mm, and 4-6 mm pleural nodule of posterior left upper lobe. -Pt knows there are concerns for malignancy but, due to size they are harder to characterize. -Recommend PET CT upon discharge in the next couple weeks to allow healing from acute condition. -Pt info taken, scan will be scheduled and pt contacted Patient understands and is agreeable with plan of care
--- NOTE | 2024-01-16 20:57 | P.DS ---
Providers Date of admission: 01/13/24 14:04 Expected date of discharge: 01/16/24 Attending physician: Mario Lewis Consults: 01/11/24 06:32 Consult Physician Routine Consulting Provider: Dipak Ordaz Consult Reason/Comments: renal mass Do you want consulting provider notified?: Yes, Notify in am 01/11/24 14:52 Consult Physician Routine Consulting Provider: Sal Castellanos Consult Reason/Comments: Metastatic disease Do you want consulting provider notified?: Yes 01/12/24 17:03 Consult Physician Routine Consulting Provider: Aram Cortes Consult Reason/Comments: Unstable angina Do you want consulting provider notified?: Yes Primary care physician: [facility] Course: Chief Complaint: Chest pain This is a 58-year-old patient of follows with Dr. Mcintyre. Chronic stable medical conditions include COPD, hypertension, hyperlipidemia, chronic kidney disease, anxiety. April 2023 - non-ST elevation GA had a cardiac catheterization with stent to the mid LAD by Dr. Vargas. Patient decided not to follow-up as she was afraid. October 2023 admitted with acute non-Q wave GA. cardiac catheterization by Dr. Vargas . 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 Stent could not be placed. Medical management. Imdur and Ranexa was added. Patient now presents with 2 days of chest pain across the chest. Was reluctant to come in. Finally her daughter called 911. Symptoms been getting worse. Short of breath. Breaking out in sweat. Still having chest pain. 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 Daughter she followed up with her railroad signal technician. She is afraid of the hospitals. Tired. January 11: Patient seen by Dr. 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 And atrophy.-No further intervention per them at this point. Outpatient follow-up with simple nephrectomy if she desires so. Patient still has some residual chest pain. Remains on IV heparin. Seen by pulmonary.-Follow-up outpatient January 12: Remains on IV heparin. Decreased but still present some chest pain. Patient was given extra dose of Imdur 15 mg today. Later seen by cardiology. IV heparin discontinued. Ranexa also stopped by cardiology. Christine added. May 15: Still has some wheezing shortness of breath. Very slight chest pain. Farxiga was added by cardiology yesterday. Will increase Imdur to 45 mg. May 16: Chest pain better. Breathing better. Received Imdur 45 mg today. Told to increase activity. Again smoke cessation discussed with the patient. May 17: Breathing much improved. No chest pain. Patient counseled again about smoking. Questions answered. Medications reviewed. Patient follow-up with Dr. Vargas. Patient seen by BOOK BINDER Gloria ricci. Their office will arrange for a follow-up PET scan. Discussion and discharge planning more than 35 minutes Social history: Lives alone. Averaged a pack a day for 40 years stopped cut back 2022. Now s moked 1 to 3 cigarettes every other day. Was drinking heavy alcohol in the past. 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 Not currently Physical examination: VITAL SIGNS: 97.5, 68, 16, 125 x 74, 97% room air GENERAL:, loss of muscle mass subcutaneous fat. Comfortable EYES: Pupils equal. Conjunctiva normal. HEENT: External appearance of nose and ears normal, oral cavity grossly normal. NECK: JVD not raised; masses not palpable. HEART: First and second heart sounds are normal; no edema. LUNGS: Respiratory rate normal decreased breath sounds. Wheezing resolved ABDOMEN: Soft, nontender, liver spleen not palpable, no masses palpable. PSYCH: Alert and oriented x3; mood and affect less anxious. MUSCULOSKELETAL:No Clubbing/cyanosis;muscles-grossly intact. Loss of subcu interstitial muscle mass. Prominent bones. Evidence of OA. INVESTIGATIONS, reviewed in the clinical context: January 15: Potassium 5 creatinine 1 Influenza type A, type B, RSV, COVID-19: Not detected January 09: White count 10.5 hemoglobin 12.8 platelets 308 potassium 4.6 BUN 18 creatinine 0.7 Troponin I 0.025, 0.028 EKG tracing personally reviewed by me-poor R wave progression. Flipped T waves in anterolateral leads. Chest x-ray film personally reviewed by me-hyperinflated lung lopes Chest CTA: No PE. Atrophic left kidney with large cyst causing mass effect on adjacent structures. Bilateral upper lobe pulmonary nodules are new. Assessment and plan: -Unstable angina in a patient with known prior CAD: Improved Aspirin. Beta perla. Imdur and Ranexa was prescribed on last admission apparently patient did not take it. Unclear Cardiac catheterization [October 2023]: Severe ostial lesion involving the first diagonal branch likely representing thrombus formation. Unable to be stented.: medical management Ranexa discontinued by cardiology. 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 Seen by Dr. Ordaz from urology. If patient decides may go for simple nephrectomy if any pain. -CAD with stent to mid LAD in April [address] Vargas Aspirin. Effient. Toprol-XL. Lipitor. -Chronic bladder dysfunction with urinary hesitancy and frequency -COPD in a current smoker Albuterol as needed. Advair -Chronic nicotine dependence, cigarette smoker Nicotine patch. Patient counseled -Essential hypertension Toprol-XL 50 mg -Hyperlipidemia Lipitor 80 mg -Primary osteoarthritis multiple joints bilaterally Tylenol as needed -Chronic constipation Metamucil -Severe protein calorie malnutrition Ensure. Consult dietitian. -Full code Disposition: Home Past Medical History Past Medical History: Coronary Artery Disease (CAD), COPD, Diabetes Mellitus, Hypertension, Myocardial Infarction (GA), Renal Disease Additional Past Medical History / Comment(s): anxiety Last Myocardial Infarction Date:: April 2023 History of Any Multi-Drug Resistant Organisms: None Reported Past Surgical History: Heart Catheterization With Stent Past Anesthesia/Blood Transfusion Reactions: No Reported Reaction Date of Last Stent Placement:: April 2023 Past Psychological History: Anxiety, Depression Smoking Status: Current every day smoker Past Alcohol Use History: Abuse, Daily, Heavy Past Drug Use History: None Reported Plan - Discharge Summary New Discharge Prescriptions: New Nicotine 7Mg/24Hr Patch [Habitrol] 1 patch TRANSDERM DAILY #30 patch Albuterol Sulfate [Albuterol Sulfate Hfa] 1 puff PO Q4-6H #8.5 gm Dapagliflozin Propanediol [Farxiga] 10 mg PO DAILY #30 tab Isosorbide Mononitrate ER [Imdur] 15 mg PO DAILY #30 tab Tamsulosin HCl [Flomax] 0.4 mg PO DAILY #30 capsule Continue Prasugrel [Effient] 10 mg PO DAILY 30 Days #30 tab Atorvastatin [Lipitor] 80 mg PO DAILY 30 Days #30 tab Metoprolol Succinate [Toprol XL] 50 mg PO DAILY lisinopriL [Zestril] 2.5 mg PO DAILY #30 tab Aspirin 81 mg PO DAILY tab Fluticasone Propion/Salmeterol [Advair 250-50 Diskus] 1 puff INHALATION RT- BID PRN PRN Reason: Shortness Of Breath Isosorbide Mononitrate ER [Imdur] 30 mg PO DAILY Discharge Medication List Aspirin 81 mg PO DAILY tab 04/17/23 [Rx] Atorvastatin [Lipitor] 80 mg PO DAILY 30 Days #30 tab 04/17/23 [Rx] Prasugrel [Effient] 10 mg PO DAILY 30 Days #30 tab 04/17/23 [Rx] Fluticasone Propion/Salmeterol [Advair 250-50 Diskus] 1 puff INHALATION RT-BID PRN 10/19/23 [History] Metoprolol Succinate [Toprol XL] 50 mg PO DAILY 10/19/23 [History] lisinopriL [Zestril] 2.5 mg PO DAILY #30 tab 10/24/23 [Rx] Isosorbide Mononitrate ER [Imdur] 30 mg PO DAILY 01/11/24 [History] Albuterol Sulfate [Albuterol Sulfate Hfa] 1 puff PO Q4-6H #8.5 gm 01/16/24 [Rx] Dapagliflozin Propanediol [Farxiga] 10 mg PO DAILY #30 tab 01/16/24 [Rx] Isosorbide Mononitrate ER [Imdur] 15 mg PO DAILY #30 tab 01/16/24 [Rx] Nicotine 7Mg/24Hr Patch [Habitrol] 1 patch TRANSDERM DAILY #30 patch 01/16/24 [Rx] Tamsulosin HCl [Flomax] 0.4 mg PO DAILY #30 capsule 01/16/24 [Rx] Follow up Appointment(s)/Referral(s): Douglas Vargas MD [STAFF PHYSICIAN] - 01/27/24 4:15 pm Dipak Ordaz MD [STAFF PHYSICIAN] - 10 Days (January 24 at 10:20am for surgical consult as well as urinary retention, f/u on flomax) Champ Mcintyre MD [Primary Care Provider] - 1-2 days Activity/Diet/Wound Care/Special Instructions: FOLLOW UP DIRECTED, SOONER FOR WORSENING SYMPTOMS PROBLEMS, OR CONCERNS. Discharge Disposition: HOME SELF-CARE
== END 2024-01-16 15:57 | disposition home or self-care (01) | DRG 198 ==
LOC: EC 22:46 → 6NMEDSUR 01-11 06:08 → OBSVTOIN 01-13 14:04
PROVIDERS: ADMIT Hospitalist; ATTEND Hospitalist
DX: I25.110 Atherosclerotic heart disease of native coronary artery with unstable angina pectoris (principal); E43 Unspecified severe protein-calorie malnutrition; E11.22 Type 2 diabetes mellitus with diabetic chronic kidney disease; Z68.1 Body mass index [BMI] 19.9 or less, adult; J44.9 Chronic obstructive pulmonary disease, unspecified; J43.9 Emphysema, unspecified; F32.A Depression, unspecified; F10.11 Alcohol abuse, in remission; N18.9 Chronic kidney disease, unspecified; I12.9 Hypertensive chronic kidney disease with stage 1 through stage 4 chronic kidney disease, or unspecified chronic kidney disease; N13.1 Hydronephrosis with ureteral stricture, not elsewhere classified; E78.5 Hyperlipidemia, unspecified; I25.5 Ischemic cardiomyopathy; K59.09 Other constipation; M15.9 Polyosteoarthritis, unspecified; N28.1 Cyst of kidney, acquired; N31.9 Neuromuscular dysfunction of bladder, unspecified; R39.11 Hesitancy of micturition; R35.0 Frequency of micturition; F41.9 Anxiety disorder, unspecified; I25.2 Old myocardial infarction; R91.1 Solitary pulmonary nodule; F17.210 Nicotine dependence, cigarettes, uncomplicated; Z71.6 Tobacco abuse counseling; Z79.82 Long term (current) use of aspirin; Z79.51 Long term (current) use of inhaled steroids; Z79.02 Long term (current) use of antithrombotics/antiplatelets; Z79.899 Other long term (current) drug therapy; Z95.5 Presence of coronary angioplasty implant and graft; Z71.3 Dietary counseling and surveillance; Z88.2 Allergy status to sulfonamides
CPT/HCPCS: 36415; 71046; 71275; 74177; 76770; 80048; 80053; 83735; 83880; 84484; 85025; 85379; 85610; 85730; 87636; 93005; 93308; 94640; 94760; 96361; 96365; 99285; 99406

== ENCOUNTER → 2024-02-03 | Outpatient (CLI) | payer OTHER ==
--- NOTE | 2024-02-04 09:22 | PE ---
EXAMINATION TYPE: PET CT fusion skull to thigh DATE OF EXAM: 02/03/2024 CLINICAL INDICATION:Female, 58 years old with history of R91.1 PULMONARY NODULE; TECHNIQUE: Following the intravenous administration of 8.39 mCi of F-18 FDG, whole body images are performed from the skull base to the midthigh. Images are reviewed on the computer in the coronal, a xial, and sagittal planes. Reconstructed rotating images are created on independent workstation and reviewed on the computer. A non-contrast CT is performed in conjunction with the PET scan. Glucose level 90 mg/dL CT DLP: 139 mGycm, Automated exposure control for dose reduction was used. COMPARISON: CT 01/12/2024, 01/11/2024, PET/CT None, FINDINGS: Mediastinal SUV mean is 1.9. Hepatic parenchyma SUV mean is 2.5. SKULL BASE AND NECK: No suspicious radiotracer activity. CHEST, MEDIASTINUM, AND HILAR REGION: * Right upper lung 8 mm pulmonary nodule Max SUV 1.5. ABDOMEN AND PELVIS: No suspicious radiotracer activity. MUSCULOSKELETAL STRUCTURES: No suspicious radiotracer activity. OTHER CT: Bilateral carotid bifurcation calcifications. Severe coronary artery is stenosis for stent within the left anterior descending artery. Large left renal cyst or hydronephrosis. Scattered coloni c diverticula. Moderate emphysema changes are seen throughout the lungs. Heart is mildly enlarged for size. IMPRESSION: Right upper lung pulmonary nodule measuring up to 8 mm with mildly increased FDG activity concerning for early malignancy. No evidence for metastatic disease at this time.
== END | disposition home or self-care (01) ==
LOC: RADPETMAIN 08:30
PROVIDERS: ATTEND Internal Medicine Hematology & Oncology
DX: R91.1 Solitary pulmonary nodule (principal)
CPT/HCPCS: 78815; A9552

== ENCOUNTER → 2024-05-08 | Outpatient (CLI) | payer OTHER ==
--- NOTE | 2024-05-09 15:58 | CT ---
EXAMINATION TYPE: CT chest w con CT DLP: 108.7 mGycm, Automated exposure control for dose reduction was used. DATE OF EXAM: 05/08/2024 10:58 AM COMPARISON: CT chest 01/11/2024. CLINICAL INDICATION:Female, 59 years old with history of J98.4 OTHER DISORDERS OF LUNG; PHH, pulmonar y nodule, other disorders of lung TECHNIQUE: Multiple axial images were obtained through the chest. Sagittal and coronal reformats were created for review. Contrast used:100 mL of Isovue 300 with IV Contrast (None if empty) Oral contrast used: (None if empty) FINDINGS: LUNGS/ PLEURA: A 7.4 mm nodule identified on previous study of 01/11/2024 has gotten considerably s maller using an estimated one half its original size. Currently it measures about 5.5 mm. This indica nhi inflammatory or infectious etiology. Moderately severe emphysema. New 6 mm nodule left lung ape x. AIRWAY: Patent and unremarkable. HEART: Size within normal limits. MEDIASTINUM: No gross evidence of adenopathy. VASCULATURE: No aortic aneurysm. MUSCULOSKELETAL: No acute osseous abnormalities SOFT TISSUES/LYMPH NODES: Unremarkable. LOWER NECK: No significant findings. UPPER ABDOMEN: Marked left hydronephrosis reidentified. IMPRESSION: New 6 mm nodule left lung apex. 50% decrease in size right 7.4 mm (previously), now measures 5.5 mm. Severe left hydronephrosis. Partially imaged. Follow-up recommendation for a new 6 mm nodule: CT at 6-12 months, then if persistent, CT every 2 y ears until 5 years Follow up recommendations for incidental pulmonary nodules, if there are any, are per [employer] or [employer]. [email or web address].org/[email or web address]?lang=us
== END | disposition home or self-care (01) ==
LOC: RADCTMAIN 10:24
PROVIDERS: ATTEND Internal Medicine Hematology & Oncology
DX: J98.4 Other disorders of lung (principal); E78.5 Hyperlipidemia, unspecified; I10 Essential (primary) hypertension; N13.30 Unspecified hydronephrosis; M12.9 Arthropathy, unspecified; R91.1 Solitary pulmonary nodule
CPT/HCPCS: 71260; Q9967

== ENCOUNTER → 2024-10-22 | Outpatient (CLI) | payer OTHER ==
[2024-10-22 18:11] LABS: Blood Urea Nitrogen 12.6 mg/dL (9.0-27.0); Chloride 101 mmol/L (96-109); Potassium 4.9 mmol/L (3.5-5.5); Sodium 138 mmol/L (135-145)
[2024-10-22 21:14] LABS: HCT 45.1 % (37.2-46.3); HGB 13.7 g/dL (12.0-15.0); MCH 32.2 pg (27.0-32.0); MCHC 30.4 g/dL (32.0-37.0); MCV 105.9 FL (80.0-97.0); NRBC Per 100 WBC 0 X 10*3/uL (0.00-0.01); Platelet Count 251 X 10*3/uL (140-440); RBC 4.26 X 10*6/uL (4.10-5.20); RDW 14.5 % (11.5-14.5)
== END | disposition home or self-care (01) ==
LOC: LABPAT 10:49
PROVIDERS: ATTEND Internal Medicine Clinical Cardiac Electrophysiology
DX: Z01.812 Encounter for preprocedural laboratory examination (principal); I25.5 Ischemic cardiomyopathy; I50.9 Heart failure, unspecified
CPT/HCPCS: 80051; 82565; 84520; 85027

== ENCOUNTER 2024-10-30 14:24 | Day surgery (SDC) | payer OTHER ==
[~2024-10-30 14:24] MED LIST: LIDOCAINE 1% (10MG/ML) FOR IV START INTRADERMA PRN; fentaNYL (PF) 50 MCG/ML 2 ML AMP IV PRN
[2024-10-30] MEDS: SODIUM CHLORIDE 0.9% 1,000 ML IV SCH (15:07)
[2024-10-30] MEDS: IV FLUID CONTINUATION 1,000 ML IV ONE (15:08)
[2024-10-30] MEDS ORDERED: fentaNYL (PF) 50 MCG/ML 2 ML AMP ONE (16:22)
[2024-10-30] MEDS ORDERED: MIDAZOLAM 2 MG/2 ML VIAL ONE (16:22)
[2024-10-30] MEDS ORDERED: PROPOFOL 10 MG/ML 20 ML VIAL IV ONE (16:22)
[2024-10-30] MEDS ORDERED: diphenhydrAMINE 50 MG/ML 1 ML VIAL ONE (16:22)
[2024-10-30] MEDS: IOPAMIDOL-250 100ML BTL IVP ONE (16:35)
[2024-10-30] MEDS: HEPARIN SODIUM,PORCINE (1 ML) 2,500 UNIT in SODIUM CHLORIDE 0.9% 250 ML IRRIGATION ONE (17:01)
[2024-10-30] MEDS: ceFAZolin 1 GM in SODIUM CHLORIDE 0.9% IRRIG BTL 250 ML IRRIGATION PRN (17:01)
[2024-10-30] MEDS: LIDOCAINE 1% INJ 10MG/ML (20 ML MDV) SQ ONE (17:03)
[2024-10-30] MEDS: ROPIVACAINE 5 MG/ML 30 ML VIAL MISCELLANE ONE (17:04)
[2024-10-30] MEDS ORDERED: ACETAMINOPHEN TAB 325 MG TAB PO PRN (18:06)
--- NOTE | 2024-10-30 18:18 | P.EPPROC ---
- EP Procedure Note Electrophysiology Procedure Note: Diagnosis Cardiomyopathy, chronic, ischemic, multivessel CAD Severely reduced LV systolic function with extensive scar noted on cardiac MRI, transmural, ejection fraction 15% Congestive heart failure, systolic class II-III On guideline directed medical treatment guideline directed Procedure: Single ICD implantation for management of risk of sudden cardiac Desulfurizer Hand: Dr. Cisneros Result: Single chamber ICD implantation, RV ICD lead: Miller Optisure single coil screw-in lead implanted in the low RV septum R waves greater than 12 mV, pacing pins 0.5 V at 0.5 ms, pacing impedance 610 ohms High-voltage impedance 57 ohms ICD generator: Miller [place], VR single-chamber ICD transfer to Procedure details: Patient was brought to the EP lab in a fasting state. Written informed consent was obtained prior to the procedure. Options, pros and cons, benefits and risks and complications discussed with patient in detail prior to the procedure (shared decision making document, from [facility]). Importance of continuing medical treatment emphasized. Alternatives discussed. Patient would like to proceed with ICD implant. Left upper extremity venogram performed. 15 mL IV dye injected in the left arm. Patent axillary/subclavian vein The left pectoral area was prepped and draped as a protocol. IV antibiotics administered 1% lidocaine was used for local anesthesia. A 4 cm incision was made parallel to the deltopectoral groove, about 1.5 cm medial to it. The incision was carried down to the level of the pectoralis muscle and the subfascial pocket was made. Hemostasis was assured. The axillary vein access was obtained. Appropriately sized venous sheath was placed. ICD lead implanted in the right ventricle and screwed in. ICD lead tested for threshold, sensing, impedances and tested with high output pacing for diaphragmatic stimulation Lead secured to the underlying transverse muscle after removing sheaths . Pocket irrigated with antibiotic solution Leads connected to the ICD generator. Wound closed in 3 layers and dressed per protocol ICD was interrogated and programmed. Appropriate pacing parameters, antitachycardia therapies with antitachycardia pacing cardioversion defibrillations programmed. Patient tolerated the procedure well without any acute complications. See scanned device report in EMR for lead details Defibrillation level testing VF was induced, successfully detected at least sensitivity 10 J shock failed to defibrillate the patient At 20 J shock was successful, anode configuration High-voltage impedance 57 ohms Last charge time 3.6 seconds No post shock noise MADIT RIT programming first cardioversion 20 J first defibrillation maximum output Appropriate antitachycardia pacing cardioversion and defibrillation's Backup pacing VVI 40 beats a minute Sensitivity normal
[2024-10-30 22:00] VITALS: RESP 16
[2024-10-30] MEDS: METOPROLOL SUCCINATE (ER) 50 MG TAB.ER.24H PO SCH (22:11)
[2024-10-30] MEDS: ACETAMINOPHEN IV (For NPO) 1,000 MG in EMPTY BAG 1 BAG IVPB ONE (22:16)
[2024-10-31] MEDS: LACTATED RINGERS 1,000 ML IV SCH (07:22)
[2024-10-31] MEDS: ISOSORBIDE MONONITRATE ER 30 MG TAB.ER.24H PO SCH (07:52)
[2024-10-31] MEDS: DAPAGLIFLOZIN PROPANEDIOL 10 MG TABLET PO SCH (08:03)
[2024-10-31] MEDS: ASPIRIN 81 MG PO SCH (08:03)
[2024-10-31] MEDS: SACUBITRIL/VALSARTAN 24 MG-26 MG TABLET PO SCH (08:03)
[2024-10-31] MEDS: ATORVASTATIN 80 MG TAB PO SCH (08:03)
--- NOTE | 2024-10-31 08:06 | XR ---
EXAMINATION TYPE: XR chest 2V DATE OF EXAM: 10/31/2024 6:19 AM COMPARISON: Chest CT May 08, 2024. CLINICAL INDICATION: Female, 59 years old with history of Lead placement check, arrhythmia. TECHNIQUE: Frontal and lateral views of the chest are obtained. FINDINGS: There is a new single lead pacemaker terminating in the right ventricle. No pneumothorax i s seen bilaterally. Small to tiny bilateral pleural effusions are felt present. Along The left heart border there is suggestion of 2.0 cm nodule, consider repeat CT to exclude neoplasm. There is focal r ight central hilar densities could reflect acute infiltrate and/or atelectasis. Correlate clinically. IMPRESSION: As above. [facility], , 10/31/2024 8:04 AM
[2024-10-31] MEDS: PRASUGREL 10 MG TAB PO SCH (09:33)
[2024-10-31 11:49] VITALS: BP 109/74; PULSE 50; TEMP 97.9
[2024-10-31 12:59] VITALS: BMI 16.1
--- NOTE | 2024-10-31 23:23 | CONS ---
CONSULTATION CHIEF COMPLAINT: Cardiomyopathy. HISTORY OF PRESENT ILLNESS: This lady is brought in for an elective defibrillator implantation. She has had recent chest pain, syncope, shortness of breath, etc. Past medical history, family history, and personal and social history can all be found in her admitting summary. She is allergic to sulfa and she has been on Atrovent, Farxiga, prasugrel, aspirin, atorvastatin, and Entresto. She is very asthenic. PHYSICAL EXAMINATION: VITAL SIGNS: Blood pressure is 148/90 with a pulse of 92, respirations of 35, and she is afebrile. Weight is only 82 pounds. HEAD, EARS, EYES, NOSE, MOUTH AND THROAT: Normal. NECK: Veins are not distended. CHEST: Clear and breath sounds are diminished due to emphysema. CARDIAC: Demonstrates sinus tachycardia. ABDOMEN: Flat, soft, and nontender. EXTREMITIES: Normal. NEUROLOGICAL: She is intact. ASSESSMENT: 1. She is admitted to the hospital for cardiomyopathy. 2. Coronary artery disease. 3. Protein calorie malnutrition. 4. Chronic obstructive pulmonary disease. RECOMMENDATIONS: None. MMODL / IJN: [id number] /
--- NOTE | 2024-11-01 02:29 | PN ---
PROGRESS NOTE DATE OF SERVICE: 10/31/2024 CHIEF COMPLAINT: Cardiomyopathy. HISTORY OF PRESENT ILLNESS: This lady is doing well following pacemaker implantation. She expects to go home today. PHYSICAL EXAMINATION: CHEST: Clear. Dressing is dry in the left upper chest. CARDIAC: Normal. IMPRESSION: Cardiomyopathy. PLAN: Probably home today. MMODL / IJN: [id number] /
--- NOTE | 2024-11-01 16:38 | P.DS ---
Providers Attending physician: Aristeo Cisneros Primary care physician: Ash Ziegler [facility] Course: Patient underwent single-chamber ICD implantation. She is doing well from a cardiac standpoint. No chest pain dizziness lightheadedness or palpitations The ICD site is healed well. No swelling minimal soakage On examination heart sounds are normal breath sounds are clear Blood pressure 109/73 mmHg pulse rate in the 50s and 60s afebrile Impression severe ischemic cardiomyopathy Single-chamber ICD implantation Patient is doing well and will be discharged home today on cardiomyopathy and heart failure medications and follow-up in the office in 1 week in the device clinic Plan - Discharge Summary Discharge Rx Participant: Yes New Discharge Prescriptions: No Action RX: Prasugrel [Effient] 10 mg PO DAILY 30 Days #30 tab RX: Atorvastatin [Lipitor] 80 mg PO DAILY 30 Days #30 tab RX: Metoprolol Succinate [Toprol XL] 50 mg PO BID Sacubitril/Valsartan [Entresto 24 mg-26 mg Tablet] 1 each PO DAILY RX: Aspirin 81 mg PO DAILY tab RX: Fluticasone Propion/Salmeterol [Advair 250-50 Diskus] 1 puff INHALATION RT-BID PRN PRN Reason: Shortness Of Breath RX: Isosorbide Mononitrate ER [Imdur] 30 mg PO DAILY RX: Dapagliflozin Propanediol [Farxiga] 10 mg PO DAILY #30 tab Discharge Medication List RX: Aspirin 81 mg PO DAILY tab 04/17/23 [Rx] RX: Atorvastatin [Lipitor] 80 mg PO DAILY 30 Days #30 tab 04/17/23 [Rx] RX: Prasugrel [Effient] 10 mg PO DAILY 30 Days #30 tab 04/17/23 [Rx] RX: Fluticasone Propion/Salmeterol [Advair 250-50 Diskus] 1 puff INHALATION RT- BID PRN 10/19/23 [History] RX: Metoprolol Succinate [Toprol XL] 50 mg PO BID 10/19/23 [History] RX: Isosorbide Mononitrate ER [Imdur] 30 mg PO DAILY 01/11/24 [History] RX: Dapagliflozin Propanediol [Farxiga] 10 mg PO DAILY #30 tab 01/16/24 [Rx] Sacubitril/Valsartan [Entresto 24 mg-26 mg Tablet] 1 each PO DAILY 10/26/24 [History] Follow up Appointment(s)/Referral(s): [facility] [Provider Group] - 11/06/24 11:15 am (Device clinic and [facility]) Douglas Vargas MD [STAFF PHYSICIAN] - 11/14/24 4:45 pm (Previously scheduled appointment) Patient Instructions/Handouts: How to Stop Smoking (DC), Implantable Cardioverter Defibrillator (DC) Discharge Disposition: HOME SELF-CARE
== END 2024-10-31 14:16 | disposition home or self-care (01) ==
LOC: CATHEP 14:24 → 3SCARD 17:56 → CATHEP 10-31 14:16
PROVIDERS: ATTEND Internal Medicine Clinical Cardiac Electrophysiology
DX: I25.5 Ischemic cardiomyopathy (principal); I25.10 Atherosclerotic heart disease of native coronary artery without angina pectoris; I50.20 Unspecified systolic (congestive) heart failure; Z95.0 Presence of cardiac pacemaker; E46 Unspecified protein-calorie malnutrition; J44.9 Chronic obstructive pulmonary disease, unspecified; Z95.5 Presence of coronary angioplasty implant and graft; Z79.51 Long term (current) use of inhaled steroids; Z79.82 Long term (current) use of aspirin; I25.2 Old myocardial infarction
CPT/HCPCS: 33249; 84443; 71046; C1722; C1892; C1769 ×2; C1777; J2250; J1200; J1644; J0690 ×2; J2003; J3010; J2795; J0131; J2704; Q9966